=== PATIENT | female | born 1960 | race Caucasian/White ===

== ENCOUNTER 2023-04-15 09:44 | Inpatient (IN) | payer BC, SELFPAY ==
[2023-04-15] VITALS (8 sets, daily range): BP systolic 106–127; BP diastolic 52–69; PULSE 66–82; RESP 16–18; TEMP 36.7–36.9; O2SAT 98–100; BMI 21.0; BMI 21.2
--- NOTE | 2023-04-15 10:28 | PC.NURSE ---
Pt states she was cleaning litter box yesterday at 1600, her 8yo cat came and wrapped paws around her ankle and bit her ankle/achilles tendon area. Pt states cat is up to date with vaccinations. Left ankle has scratch hernandez on front of ankle, four puncture hernandez where cat bit (lower and upper teeth). Area painful, red, warm and swollen. Pt states she cannot bear weight and cannot move ankle without pain.
--- NOTE | 2023-04-15 10:49 | ED.GENADULT ---
HPI - General Adult General Time Seen by Provider: 10:49 Date Seen: 04/15/23 Chief complaint: Skin/Abscess/Foreign Body Stated complaint: Cat bite L ankle Time Seen by Provider: 04/15/23 10:49 Source: patient and RN notes reviewed Mode of arrival: ambulatory (With crutches) Limitations: no limitations History of Present Illness HPI narrative: Patient is coming in with a painful wound on the back of her left ankle. She was changing her cats martha litter last night. The cat attacked the back of her leg, scratching the front side with the claws in biting into the back of the calf. Patient is worried about her Achilles tendon. She states she has had pain all night long. No fever. She did try some ibuprofen. She did apply some ice to the back of the leg. She is sure her tetanus is up-to-date, just had a recent physical and everything was up-to-date. The cat is an indoor cat, is up-to-date on all immunizations. She does have a penicillin allergy, citing hives. Related Data Home Medications Medication Instructions Recorded Confirmed No Known Home Medications 04/15/23 04/15/23 Allergies Allergy/AdvReac Type Severity Reaction Status Date / Time amoxicillin Allergy Verified 04/15/23 09:55 Review of Systems Narrative: As per HPI [facility] Medical History (Updated 04/15/23 @ 15:06 by Aida Conway MD) Normal vaginal delivery ?O80 - Encounter for full-term uncomplicated delivery (ICD-10) Surgical History (Updated 04/15/23 @ 15:01 by Aida Conway MD) History of knee surgery ?Z98.890 - Other specified postprocedural states (ICD-10) Social History (Updated 04/15/23 @ 15:02 by Aida Conway MD) Narrative: , two grown daughters. nonsmoker. social wine. 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. gets primary care with [facility]. What is your current living situation?: I presently have a place to live Problems where you live: no known problems Problems where you live details: none In the past 12 months, utilities in danger of being shut off: no In the past 12 mos, have been you worried that your food would run out before you had money to buy more?: never true In the past 12 mos, the food you bought just didn't last and you didn't have money to buy more?: never true Highest level of school completed/degree received: Associate degree: academic program Smoking Status: Never smoker Do you use any of these nicotine containing products: None Second hand tobacco smoke exposure: No How often do you have a drink containing alcohol: 2-4 times a month How many standard drinks containing alcohol do you have on a typical day: 1 or 2 How often do you have six or more drinks on one occasion: Never AUDIT-C Alcohol total score: 2 Non-prescribed substance use: denies use Caffeine: Yes How often does anyone, including family, friends and others, physically hurt you: never How often does anyone, including family, friends and others, insult or talk down to you: never How often does anyone, including family, friends and others, threaten you with harm: never How often does anyone, including family, friends and others, scream or curse at you: never Gender Identity: female service: No Exam Const: Vital Signs, click to edit/add: Vital Signs - 24 hr 04/15/23 09:56 04/15/23 12:50 Temperature 98.5 F 98.0 F Pulse Rate [Pulse Oximeter] 82 70 Respiratory Rate 18 16 Blood Pressure [Le ft Upper Arm] 124/63 106/56 L Pulse Oximetry 100 99 Oxygen Delivery Me thod Room Air Room Air Documenting provider has reviewed patient's vital signs: yes Common normals: no apparent distress, average body habitus, oriented x3, no limitations, healthy appearing, alert and well nourished General appearance: cooperative, comfortable, well kempt and well developed Nutritional appearance: thin HENMT: Common normals: normocephalic, head/scalp atraumatic, hearing grossly normal bilaterally and external nose normal Head and scalp: normocephalic and atraumatic Face and sinus: normal facial exam Nose: external nose normal Eye: Common normals: PERRL, EOMs intact bilaterally, conjunctivae normal and no scleral icterus Conjunctiva: conjunctiva(e) normal Pupil: PERRL Neck & C-Spine: Common normals: full ROM, no lymphadenopathy and supple Resp: Common normals: normal respiratory effort, no retractions, no use of accessory muscles and clear to auscultation bilaterally Auscultation: clear to auscultation bilaterally Cardio: Common normals: regular rate, regular rhythm, S1 normal heart sound, S2 normal heart sound, no gallops, no clicks and no murmurs Rate: regular rate Rhythm: regular rhythm Heart sounds: S1 normal and S2 normal GI: Common normals: Normal to inspection, nondistended, normoactive bowel sounds present, soft to palpation, non-tender, no hepatosplenomegaly and no masses Palpation: soft and no hepatosplenomegaly Extremity: Other: Has superficial scratch on the anterior ankle area without erythema. Her Achilles tendon palpates intact but at the distal aspect of the insertion to the tendon to the muscle is where the soft tissue swelling and erythema of the skin start an there is a swath on the posterior aspect of this calf that goes a little proximally up the calf. There is erythema, tenderness and swelling and as well as induration. I feel no fluctuance. She is definitely tender in this area. This looks to be a significant cellulitis already. No drainage noted. Neuro: Common normals: oriented x3, moves all extremities, no focal motor deficits and no sensory deficits noted Sensorium/orientation: alert Psych: Appearance: well kempt Course Course Hospital Course: Reviewed with patient that her Achilles tendon seems to be intact and not involved but just proximal to this there is superficial cellulitis, I do not appreciate any concern for abscess at this time. This does however concern me for significant cellulitis already. I would favor hospitalization and IV antibiotics. Will need to go on up-to-date to review recommendations given her penicillin allergy. We will establish an IV, get appropriate labs. If this is worsening, she will likely need some type of imaging of this cat bite. Will talk to the hospitalist about hospitalization. Reevaluation(s) Time of Reevaluation #1: 11:06 Reevaluation #1: Reviewed with patient that I had been on up-to-date and reviewed antibiotic recommendations. Given her penicillin allergy, next in line would be Rocephin with either Flagyl or clindamycin. I would favor Rocephin with Flagyl. She believes she is taking Keflex before remotely for UTI and tolerated it. Time of Reevaluation #2: 12:54 Reevaluation #2: Patient is getting ready to be transferred to the floor. She had not wanted anything for pain management up to this point but at this time pain is severe enough she would consider. Nursing staff asked me for ibuprofen, recommended we try some IV Toradol. They were quite happy to try that route. I have ordered 15 mg IV Toradol. Consultations Consultation #1: Spoke with the hospitalist Dr. Conway. Reviewed the case. She does accept patient. Time: 11:54 Vital Signs Vital signs: Initial Vital Signs Temperature 98.5 F 04/15/23 09:56 Temperature Source Temporal Artery Scan 04/15/23 09:56 Pulse Rate 82 04/15/23 09:56 Pulse Rhythm Regular 04/15/23 09:56 Respiratory Rate 18 04/15/23 09:56 Blood Pressure 124/63 04/15/23 09:56 Blood Pressure Mean 83 04/15/23 09:56 Blood Pressure Position Sitting 04/15/23 09:56 Pulse Oximetry 100 04/15/23 09:56 Oxygen Delivery Method Room Air 04/15/23 09:56 Vital Signs Temperature 98.5 F 04/15/23 09:56 Pulse Rate 82 04/15/23 09:56 Respiratory Rate 18 04/15/23 09:56 Blood Pressure 124/63 04/15/23 09:56 Pulse Oximetry 100 04/15/23 09:56 Oxygen Delivery Method Room Air 04/15/23 09:56 Temperature 98.2 F 04/15/23 19:28 Pulse Rate 70 04/15/23 19:10 Respiratory Rate 16 04/15/23 19:10 Blood Pressure 127/69 04/15/23 19:10 Pulse Oximetry 98 04/15/23 19:10 Oxygen Delivery Method Room Air 04/15/23 19:10 Medical Decision Making Lab Data Lab results reviewed: Yes I reviewed the patient's lab results Labs: Lab Results 04/15/23 04/15/23 Range/Units 10:59 11:07 WBC 8.68 (4.50-11.00) K/uL RBC 4.91 (4.00-5.20) m/uL Hgb 14.7 (12.0-16.0) gm/dL Hct 44.2 (33.0-51.0) % MCV 90 (80-100) fL MCH 30 (26-34) pg MCHC 33 (32-36) gm/dL RDW Coeff of Betty 12.0 (11.5-15.5) % Plt Count 211 (140-440) K/uL Neut % (Auto) 76.4 H (42.0-72.0) % Lymph % (Auto) 15.6 L (20-44) % [place] % (Auto) 7.4 (0.0-11.0) % Eos % (Auto) 0.3 (0.0-7.0) % Baso % (Auto) 0.2 (0.0-3.0) % Neut # (Auto) 6.60 (1.7-7.0) K/uL Lymph # (Auto) 1.40 (0.90-2.90) K/uL [place] # (Auto) 0.60 (0.00-0.90) K/UL Eos # (Auto) 0.03 (0.00-0.50) K/uL Baso # (Auto) 0.02 (0.00-0.30) K/uL Abs Immat Gran (auto) 0.01 (0.00-0.30) K/uL Imm/Tot Granulo (auto) 0.1 % ESR 13 (2-20) mm/hr Sodium 139 (135-149) mmol/L Potassium 3.5 L (3.6-5.1) mmol/L Chloride 104 (96-114) mmol/L Carbon Dioxide 28 (20-32) mmol/L BUN 13 (7-30) mg/dL Creatinine 0.7 (0.5-1.5) mg/dL Estimated Creat Clear 79.80 Estimated GFR 99 ml/min Glucose 103 (60-115) mg/dL Lactate 0.9 (0.5-1.9) mmol/L Calcium 9.3 (8.4-10.6) mg/dL C-Reactive Protein 0.8 (0.5-1.0) mg/dL Critical Care Time Critical Care Time Critical Care Time: No Discharge Plan Discharge Clinical Impression: Cellulitis of left leg, Cat bite Patient Disposition: Admitted As Observation
[2023-04-15] MEDS: cefTRIAXone 1 GM in 0.9 % SODIUM CHLORIDE Mini-bag 100 ML IVPB ×2 (11:00→22:54)
[2023-04-15 11:30] LABS: Lactate* 0.9 mmol/L (0.5-1.9)
[2023-04-15 11:32] LABS: Basophils Absolute Auto 0.02 K/uL (0.00-0.30); Basophils Percent Auto 0.2 % (0.0-3.0); Eosinophils Absolute Auto 0.03 K/uL (0.00-0.50); Eosinophils Percent Auto 0.3 % (0.0-7.0); Hematocrit 44.2 % (33.0-51.0); Hemoglobin* 14.7 gm/dL (12.0-16.0); Immature Granulocytes Abs Auto 0.01 K/uL (0.00-0.30); Immature Granulocytes Pct Auto 0.1 %; Lymphocytes Percent Auto 15.6 % (20-44); Mean Corpuscular HGB Conc 33 gm/dL (32-36); Mean Corpuscular Hemoglobin 30 pg (26-34); Mean Corpuscular Volume 90 fL (80-100); Monocytes Percent Auto 7.4 % (0.0-11.0); Neutrophils Percent Auto 76.4 % (42.0-72.0); Platelet Count* 211 K/uL (140-440); Red Blood Count 4.91 m/uL (4.00-5.20); White Blood Count* 8.68 K/uL (4.50-11.00)
[2023-04-15] MEDS: metroNIDAZOLE 500 MG/100 ML PIGGYBACK 100 MG IVPB ×2 (11:40→19:12)
[2023-04-15 11:50] LABS: Slide Review Reflex No
[2023-04-15 12:37] LABS: Chloride* 104 mmol/L (96-114); Potassium* 3.5 mmol/L (3.6-5.1); Sodium* 139 mmol/L (135-149)
[2023-04-15 12:39] LABS: Creatinine* 0.7 mg/dL (0.5-1.5); Estimated Glomerular Filt Rate 99 ml/min
[2023-04-15 12:40] LABS: Blood Urea Nitrogen* 13 mg/dL (7-30); Carbon Dioxide* 28 mmol/L (20-32)
[2023-04-15 12:41] LABS: Calcium* 9.3 mg/dL (8.4-10.6); Glucose* 103 mg/dL (60-115)
[2023-04-15 12:43] LABS: C Reactive Protein* 0.8 mg/dL (0.5-1.0)
--- NOTE | 2023-04-15 12:51 | PC.NURSE ---
report called to med surg. pt able to go to room 277
[2023-04-15] MEDS: KETOROLAC 15 MG/ML inj IVP (12:58)
[2023-04-15 14:37] LABS: Erythrocyte SedimentationRate* 13 mm/hr (2-20)
--- NOTE | 2023-04-15 14:43 | PM.IMHP1 ---
Hospitalist- H&P: HPI History of Present Illness Date Seen: 04/15/23 Chief complaint: Cat bite L ankle Narrative: ADMISSION HISTORY AND PHYSICAL - HOSPITALIST Chief Complaint: Cat bite, left ankle HPI: 62-year-old healthy female presents approximately 17 hours after being bit by her house CT. Her CT expectedly launced at her posterior left ankle just above her Achilles tendon. She said it scratched and bit her. The cat is an inside cat and is fully vaccinated. This behavior from this feline has happened before to another member of the family. Her pain has been intense and the redness is sitting in at about the 12 hour point. She came to the ER for further evaluation. Chills without fever. She is not immunocompromised. She takes no routine medications. ER COURSE: labs, first course of antibiotics. no blood cultures; no imaging. Hospital medicine team was asked to evaluate given the source of the bite and the increasing pain and redness. CODE STATUS: FULL EMERGENCY CONTACT PLAN: I've updated the PFSH, medications and allergies in the [facility]panse tabs. INVESTIGATIONS: LABS/MICRO/ECG/IMAGING CBC reflects normal white blood cell count. Normal hemoglobin. Normal platelet count. ESR 13 CRP 0.8 Mildly depressed potassium at 3.5 otherwise all others are electrolytes, lactate, renal function are all normal REVIEW OF SYSTEMS: 12-point ROS completed with patient and negative unless otherwise stated in HPI or below. PHYSICAL EXAM: CONSTITUTIONAL: Conversive, good historian. A/O. Knows setting and context. VITAL SIGNS: see record. HEENT: Normocephalic, atraumatic. PERRL, EOMI, conjunctivae pink, no scleral icterus. Ears and nose externally normal. Pharynx normal. NECK: No JVD. No carotid bruit, no thyromegaly, no adenopathy. CHEST: Clear to auscultation bilaterally HEART: S1 and S2 normal. No harsh murmurs. Edema MUSCULOSKELETAL: No gross joint deformity or swelling. NEURO: Cranial nerves intact. Grossly intact. No asymmetric findings. SKIN: No rashes, petechiae, concerning changes Left ankle/calf: Achilles tendon palpates intact. Positive Homans sign. Redness is outlined about the size of a softball around puncture wounds. No fluid collections or obvious fluctuance. PSYCHIATRIC: Euthymic. ADMIT TO MEDSURG: FLOOR CARE DVT: Lovenox GI: PO intake Time spent: 70 minutes examining patient, conferring with family and patient, care staff, developing care plan [facility] Medical History (Updated 04/15/23 @ 15:06 by Aida Conway MD) Normal vaginal delivery ?O80 - Encounter for full-term uncomplicated delivery (ICD-10) Surgical History (Updated 04/15/23 @ 15:01 by Aida Conway MD) History of knee surgery ?Z98.890 - Other specified postprocedural states (ICD-10) Social History (Updated 04/15/23 @ 15:02 by Aida Conway MD) Narrative: , two grown daughters. nonsmoker. social wine. 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 gets primary care with [facility]. What is your current living situation?: I presently have a place to live Problems where you live: no known problems Problems where you live details: none In the past 12 months, utilities in danger of being shut off: no In the past 12 mos, have been you worried that your food would run out before you had money to buy more?: never true In the past 12 mos, the food you bought just didn't last and you didn't have money to buy more?: never true Highest level of school completed/degree received: Associate degree: academic program Smoking Status: Never smoker Do you use any of these nicotine containing products: None Second hand tobacco smoke exposure: No How often do you have a drink containing alcohol: 2-4 times a month How many standard drinks containing alcohol do you have on a typical day: 1 or 2 How often do you have six or more drinks on one occasion: Never AUDIT-C Alcohol total score: 2 Non-prescribed substance use: denies use Caffeine: Yes How often does anyone, including family, friends and others, physically hurt you: never How often does anyone, including family, friends and others, insult or talk down to you: never How often does anyone, including family, friends and others, threaten you with harm: never How often does anyone, including family, friends and others, scream or curse at you: never Gender Identity: female service: No Meds Home Medications and Allergies Home Medications Medication Instructions Recorded Confirmed Type No Known Home Medications 04/15/23 04/15/23 History Allergies Allergy/AdvReac Type Severity Reaction Status Date / Time amoxicillin Allergy Verified 04/15/23 09:55 Exam Const: Vital Signs, click to edit/add: Vital Signs - 24 hr 04/15/23 09:56 04/15/23 12:50 04/15/23 13:12 Temperature 98.5 F 98.0 F 98.0 F Pulse Rate [Pulse Oximeter] 82 70 Pulse Rate [Right Pulse Oximeter] Respiratory Rate 18 16 16 Blood Pressure [Le ft Arm] 111/52 L Blood Pressure [Le ft Upper Arm] 124/63 106/56 L Pulse Oximetry 100 99 100 Oxygen Delivery Me thod Room Air Room Air Room Air 04/15/23 13:12 04/15/23 13:22 04/15/23 13:22 Temperature 98.0 F Pulse Rate [Pulse Oximeter] Pulse Rate [Right Pulse Oximeter] 79 Respiratory Rate 16 16 16 Blood Pressure [Le ft Arm] 111/52 L Blood Pressure [Le ft Upper Arm] Pulse Oximetry 100 100 100 Oxygen Delivery Me thod Room Air Room Air Room Air Hospitalist - H&P: Result Labs Labs: Short CBC 04/15/23 Range/Units 10:59 WBC 8.68 (4.50-11.00) K/uL Hgb 14.7 (12.0-16.0) gm/dL Hct 44.2 (33.0-51.0) % Plt Count 211 (140-440) K/uL BMP 04/15/23 11:07 Sodium 139 Potassium 3.5 L Chloride 104 Carbon Dioxide 28 BUN 13 Creatinine 0.7 Glucose 103 Calcium 9.3 Assessment and Plan Assessment and plan (1) Cellulitis of left leg: Problem comment: In light of penicillin allergy we will administer ceftriaxone 1 g q.12 and Flagyl 500 mg q.8 We can switch to an oral regimen once we have peaked evidence of infection Ultrasound to the left lower extremity ordered 04/15 Status: Acute (2) Cat bite: Problem comment: No need to quarantine Status: Acute
--- NOTE | 2023-04-15 14:50 | CRLHL7_ITS ---
For Patients: As a result of the Century Cures Act, medical imaging exams and procedure reports are released immediately into your electronic medical record. You may view this report before your referring provider. If you have questions, please contact your health care provider. INDICATION: TECHNIQUE: Ultrasound venous duplex left lower extremity. COMPARISON: None. FINDINGS: The left common femoral, superficial femoral, deep femoral, popliteal, posterior tibial, and greater saphenous veins are fully compressible normal waveforms. The contralateral right common femoral vein is also compressible with normal waveform. No masses evident. IMPRESSION: Normal ultrasound of the left lower extremity veins. Dictated by: Osmani Rider MD @ 04/15/2023 16:40:17 (Electronically Signed)
[2023-04-15] MEDS: ACETAMINOPHEN 325 MG TABLET PO (15:00)
[2023-04-15] MEDS: KETOROLAC 30 MG/ML inj IVP (18:46)
--- NOTE | 2023-04-15 19:06 | PC.NURSE ---
Pt up to floor at 1300 accompanied by dtr. Patient is alert and oriented x4. Tolerating reg diet. Patients IV in right arm SL. Patient rates pain 6/10. PRN tylenol adminitered w/relief. Scheduled Toradol administered. Patients cat bite on left ankle, red, warm to the touch and staying within the line drawn by MD Conway. Patient on RA, NSR on tele. Ambulates independently to BR. Tolerating well.
[2023-04-15] MEDS: ENOXAPARIN 40 MG/0.4 ML INJ SUBCUT (20:39)
[2023-04-15] MEDS: SODIUM CHLORIDE 0.9 % (FLUSH) 10 ML SYRINGE 5 ML IVF ×2 (20:40→22:58)
--- NOTE | 2023-04-15 22:46 | PC.NURSE ---
End of shift nursing note, care provided from : Pt alert and oriented, pleasant. Vitals stable. Pt rates pain to L ankle 5/10 which she states is manageable and slightly improving, declines offer for additional PRN, pt states understanding to notify nursing staff if pain increases. Pt up ind in room, voiding without difficulty. Denies nausea, tolerating oral intake. IV saline locked in between IV antibiotics admin. CMS intact. Pt has call light within reach and able to use appropriately.
[2023-04-16] MEDS: KETOROLAC 30 MG/ML inj IVP ×2 (00:51→06:30)
[2023-04-16 03:33] VITALS: BP 102/64; PULSE 64; RESP 16; TEMP 36.5; O2SAT 96
[2023-04-16] MEDS: metroNIDAZOLE 500 MG/100 ML PIGGYBACK 100 MG IVPB ×3 (03:39→19:38)
[2023-04-16 06:31] LABS: HCO3 VBG 29 mmol/L (21-28); PCO2 VBG 49 mmHG (40-50); PO2 VBG 35.5 mmHG (25-47); pH VBG 7.378 (7.32-7.43)
--- NOTE | 2023-04-16 06:39 | PC.NURSE ---
End of shift: Pt A&O, pleasant and cooperative. VSS w/ sats >90% on RA. Rating left ankle pain 5/10. Pt declined PRN pain medication. Scheduled Toradol given. Up at susu.
[2023-04-16 06:44] LABS: Hematocrit 37.3 % (33.0-51.0); Hemoglobin* 12.8 gm/dL (12.0-16.0); Mean Corpuscular HGB Conc 34 gm/dL (32-36); Mean Corpuscular Hemoglobin 31 pg (26-34); Mean Corpuscular Volume 90 fL (80-100); Platelet Count* 195 K/uL (140-440); Red Blood Count 4.13 m/uL (4.00-5.20); White Blood Count* 5.81 K/uL (4.50-11.00)
[2023-04-16 06:54] LABS: Slide Review Reflex No
[2023-04-16 07:00] VITALS: BP 117/70; PULSE 75; PULSE 77; RESP 16; TEMP 36.8; O2SAT 99
[2023-04-16 07:02] LABS: Chloride* 106 mmol/L (96-114); Sodium* 138 mmol/L (135-149)
[2023-04-16 07:05] LABS: Creatinine* 0.7 mg/dL (0.5-1.5); Est. Creatinine Clearance* 79.86; Estimated Glomerular Filt Rate 99 ml/min
[2023-04-16 07:06] LABS: Blood Urea Nitrogen* 16 mg/dL (7-30); Calcium* 8.3 mg/dL (8.4-10.6); Carbon Dioxide* 30 mmol/L (20-32); Glucose* 105 mg/dL (60-115); Magnesium* 2.1 mg/dL (1.5-2.6)
[2023-04-16 07:09] LABS: C Reactive Protein* 2.2 mg/dL (0.5-1.0)
[2023-04-16 07:15] LABS: NT Pro B Type NatriureticPept* 174 pg/mL
[2023-04-16 07:21] LABS: Procalcitonin* 0.07 ng/mL (<0.50)
[2023-04-16 11:00] VITALS: RESP 18
[2023-04-16] MEDS: cefTRIAXone 1 GM in 0.9 % SODIUM CHLORIDE Mini-bag 100 ML IVPB ×2 (11:15→22:31)
[2023-04-16] MEDS: CARBOXYMETHYLCELLULOSE (REFRESH PLUS) TEARS 1 DROP EYE-BOTH (11:15)
[2023-04-16] MEDS: SODIUM CHLORIDE 0.9 % (FLUSH) 10 ML SYRINGE 5 ML IVF ×2 (11:21→20:41)
[2023-04-16] MEDS: LACTOBACILLUS ACIDOPHILUS 1 TABLET 2 TAB PO ×2 (11:59→17:53)
--- NOTE | 2023-04-16 12:09 | P.IMPN_ITS ---
Progress Note: A&P Assessment and plan (1) Cellulitis of left leg: Problem details: In light of penicillin allergy we will administer ceftriaxone 1 g q.12 and Flagyl 500 mg q.8 We can switch to an oral regimen once we have peaked evidence of infection Ultrasound to the left lower extremity ordered 04/15 normal Will start a probiotic Likely DC tomorrow Status: Acute (2) Cat bite: Problem details: No need to quarantine Status: Acute Subjective Date Seen: 04/16/23 Interval history: Daily Progress Note - Hospital Medicine Day #: 2 CC: Cellulitis, cat bite OVERNIGHT UPDATES FROM STAFF & MED, LAB, IMAGING UPDATES No fever overnight. Rated 5/10 with walking and flexing at the ankle. Ultrasound was reassuring. Good appetite no chills CBC reassuring. Total white blood cell count 5.8. Normal blood gas, normal pH Electrolytes are all normal. Potassium has, up to 4.0 C reactive protein went from 0.8-2.2 BNP, pro count and TSH were all normal Normal ultrasound of the left lower extremity veins. Objective: Vitals: see above Lungs: Clear. Cardiac: S1S2. Left ankle slight extension of her erythema proximally. No fluid collection palpated. Warmth continues. Rash appears bit more petechial like. Tender to palpation. Disposition/Potential discharge - Likely to return to previous living situation. Total time is 35 minutes with greater than 50% spent in counseling and coordination of care. Exam Const: Vital Signs, click to edit/add: Vital Signs - 24 hr 04/15/23 12:50 04/15/23 13:12 04/15/23 13:12 Temperature 98.0 F 98.0 F Pulse Rate Pulse Rate [Pulse Oximeter] 70 Pulse Rate [Right Pulse Oximeter] Respiratory Rate 16 16 16 Blood Pressure [Le ft Arm] 111/52 L Blood Pressure [Le ft Upper Arm] 106/56 L Pulse Oximetry 99 100 100 Oxygen Delivery Me thod Room Air Room Air Room Air 04/15/23 13:22 04/15/23 13:22 04/15/23 13:22 Temperature 98.0 F Pulse Rate 73 Pulse Rate [Pulse Oximeter] Pulse Rate [Right Pulse Oximeter] 79 Respiratory Rate 16 16 Blood Pressure [Le ft Arm] 111/52 L Blood Pressure [Le ft Upper Arm] Pulse Oximetry 100 100 Oxygen Delivery Me thod Room Air Room Air 04/15/23 15:00 04/15/23 19:10 04/15/23 19:28 Temperature 98.2 F 98.2 F Pulse Rate Pulse Rate [Pulse Oximeter] Pulse Rate [Right Pulse Oximeter] 71 70 Respiratory Rate 16 16 Blood Pressure [Le ft Arm] 127/69 Blood Pressure [Le ft Upper Arm] Pulse Oximetry 98 [facility] 04/15/23 23:32 04/16/23 03:33 04/16/23 07:00 Temperature 98.1 F 97.7 F Pulse Rate 77 Pulse Rate [Pulse Oximeter] Pulse Rate [Right Pulse Oximeter] 66 64 Respiratory Rate 18 16 Blood Pressure [Le ft Arm] 120/67 102/64 Blood Pressure [Le ft Upper Arm] Pulse Oximetry 98 96 [facility] Room Air 04/16/23 07:00 04/16/23 07:00 Temperature 98.2 F Pulse Rate Pulse Rate [Pulse Oximeter] Pulse Rate [Right Pulse Oximeter] 75 75 Respiratory Rate 16 16 Blood Pressure [Le ft Arm] 117/70 Blood Pressure [Le ft Upper Arm] Pulse Oximetry 99 [facility] Labs Labs: Laboratory Results - last 24 hr 04/15/23 04/16/23 11:07 06:08 WBC 5.81 RBC 4.13 Hgb 12.8 Hct 37.3 MCV 90 MCH 31 MCHC 34 Plt Count 195 ESR 13 VBG pH 7.378 VBG pCO2 49 VBG pO2 35.5 VBG HCO3 29 H Sodium 139 138 Potassium 3.5 L 4.0 Chloride 104 106 Carbon Dioxide 28 30 BUN 13 16 Creatinine 0.7 0.7 Estimated Creat Clear 79.80 79.86 Estimated GFR 99 99 Glucose 103 105 Calcium 9.3 8.3 L Magnesium 2.1 C-Reactive Protein 0.8 2.2 H NT-Pro-B Natriuret Pep 174 Procalcitonin 0.07 TSH 1.560
--- NOTE | 2023-04-16 14:00 | CRLHL7_ITS ---
For Patients: As a result of the Century Cures Act, medical imaging exams and procedure reports are released immediately into your electronic medical record. You may view this report before your referring provider. If you have questions, please contact your health care provider. HISTORY: Cat bite. TECHNIQUE: Noncontrast MRI of the left lower leg. COMPARISON: Ultrasound 04/15/2023. FINDINGS: There is subcutaneous signal abnormality involving the posterior aspect of the lower leg suggesting cellulitis changes. There is interstitial muscle edema involving the soleus muscle which in the setting of a cat bite likely indicates myositis. A muscle strain could appear similarly. Small area of thickening of the musculotendinous unit is present. Fascial plane edema or a small amount of fascial plane fluid extends along the posterior aspect of the soleus and Achilles tendon. There is tendinosis of the distal Achilles tendon. No acute fracture. No confluent effacement of fatty marrow to suggest osteomyelitis. IMPRESSION: 1. Cellulitis of the posterior calf. 2. Fascial plane edema versus a small amount of fascial plane fluid along the posterior aspect of the soleus and Achilles tendon suggesting fasciitis. 3. Interstitial muscle signal abnormality involving the soleus muscle compatible with myositis. Note than an acute muscle strain could appear similarly. 4. No osteomyelitis. Dictated by David Pretty MD @ 04/17/2023 7:14:57 AM (Electronically Signed)
[2023-04-16 15:00] VITALS: BP 130/75; PULSE 78; RESP 18; TEMP 37.4; O2SAT 100
[2023-04-16 16:54] LABS: PCR FLU A Negative PCR FLU A (Negative); PCR FLU B Negative PCR FLU B (Negative); PCR RSV Negative PCR RSV (Negative)
[2023-04-16 16:56] LABS: SARS PCR* Negative SARS-CoV-2 (Negative)
[2023-04-16] MEDS: ACETAMINOPHEN 325 MG TABLET PO (17:52)
[2023-04-16] MEDS: OXYCODONE 5 MG TABLET PO (17:53)
[2023-04-16 19:29] VITALS: BP 120/67; PULSE 70; RESP 18; TEMP 36.8; O2SAT 96
--- NOTE | 2023-04-16 19:33 | PC.NURSE ---
End of shift note: Patient is alert and oriented x4. Tolerating reg diet. Patients IV in right arm SL. Patient states she is tolerating pain. Only hurts when walking to BR. Patients cat bite on left ankle, red, warm to the touch and staying within the line drawn by MD Conway. Patient on RA, Ambulates independently to BR. Tolerating well. Patient a little more anxious today, she feels warm and feverish. covid/flu/rsv test done, and negative.
[2023-04-16] MEDS: ENOXAPARIN 40 MG/0.4 ML INJ SUBCUT (20:40)
[2023-04-16] MEDS: MELATONIN 3 MG TABLET PO (20:54)
--- NOTE | 2023-04-16 22:39 | PC.NURSE ---
End of shift: Pt A&O, pleasant and cooperative. VSS w/ sats >90% on RA. Cat bite to left ankle red, swollen, and warm to touch. Site outlined. Pt states pain is ?tolerable?. Pt mentioned lack of sleep last night and today, PRN melatonin given. Up at susu.
[2023-04-16 23:00] VITALS: BP 117/76; PULSE 62; RESP 18; TEMP 36.6; O2SAT 96
[2023-04-17] VITALS (10 sets, daily range): BP systolic 110–129; BP diastolic 71–82; PULSE 76–84; RESP 18–20; TEMP 37.1–37.9; O2SAT 96–98
[2023-04-17] MEDS: metroNIDAZOLE 500 MG/100 ML PIGGYBACK 100 MG IVPB ×3 (03:24→20:01)
[2023-04-17 06:21] LABS: Hematocrit 36.4 % (33.0-51.0); Hemoglobin* 12.4 gm/dL (12.0-16.0); Mean Corpuscular HGB Conc 34 gm/dL (32-36); Mean Corpuscular Hemoglobin 31 pg (26-34); Mean Corpuscular Volume 89 fL (80-100); Platelet Count* 179 K/uL (140-440); Red Blood Count 4.07 m/uL (4.00-5.20); White Blood Count* 6.47 K/uL (4.50-11.00)
[2023-04-17 06:22] LABS: Slide Review Reflex No
[2023-04-17 06:31] LABS: Chloride* 106 mmol/L (96-114); Potassium* 3.5 mmol/L (3.6-5.1); Sodium* 137 mmol/L (135-149)
[2023-04-17 06:34] LABS: Blood Urea Nitrogen* 9 mg/dL (7-30); Carbon Dioxide* 28 mmol/L (20-32); Creatinine* 0.7 mg/dL (0.5-1.5); Est. Creatinine Clearance* 79.86; Estimated Glomerular Filt Rate 99 ml/min
[2023-04-17 06:35] LABS: Calcium* 8.4 mg/dL (8.4-10.6); Glucose* 103 mg/dL (60-115)
[2023-04-17 06:37] LABS: C Reactive Protein* 2.7 mg/dL (0.5-1.0)
--- NOTE | 2023-04-17 07:16 | PC.NURSE ---
-: pleasant and cooperative. SBA. Pt states pain in her left ankle is tolerable, and that it feels ?tight and swollen?,?declined need for Tylenol this AM. Cellulitis outlined on left ankle, new dotted line was made by Tomasa PETERSON at 2300 04/16/23 as the redness increased outside of original margins. LLE elevated on pillows. VSS. Afebrile.
[2023-04-17] MEDS: LACTOBACILLUS ACIDOPHILUS 1 TABLET 2 TAB PO ×3 (07:50→17:30)
[2023-04-17] MEDS: SODIUM CHLORIDE 0.9 % (FLUSH) 10 ML SYRINGE 5 ML IVF ×2 (07:50→21:07)
--- NOTE | 2023-04-17 12:10 | PC.SOCIAL ---
student services representative referral on pt. in error. No medical social worker needs identified.
--- NOTE | 2023-04-17 12:47 | PM.IMPN1 ---
Progress Note: A&P Assessment and plan (1) Cellulitis of left leg: Problem details: In light of penicillin allergy we ordered ceftriaxone 1 g q.12 and Flagyl 500 mg q.8 changing ceftriaxone to vancomycin and cefuroxime. continue flagyl 2/2 increasing proximal redness, pain and increasing CRP We can switch to an oral regimen once we have peaked evidence of infection MR reviewed with ortho probiotic ongoing Status: Acute (2) Cat bite: Problem details: No need to quarantine Status: Acute Subjective Date Seen: 04/17/23 Interval history: Daily Progress Note - Hospital Medicine Day #: 3 CC: Cellulitis, cat bite OVERNIGHT UPDATES FROM STAFF & MED, LAB, IMAGING UPDATES new elevated temp 100.1 this morning. Rated 5/10 with walking and flexing at the ankle. Ultrasound was reassuring. MR last night: 1. Cellulitis of the posterior calf. 2. Fascial plane edema versus a small amount of fascial plane fluid along the posterior aspect of the soleus and Achilles tendon suggesting fasciitis. 3. Interstitial muscle signal abnormality involving the soleus muscle compatible with myositis. Note than an acute muscle strain could appear similarly. 4. No osteomyelitis Good appetite no chills Temp is 100.1? this morning. This is the 1st documented temp over 100. CBC is normal Potassium is mildly depressed. CRP is up trending to 2.7 from 2.2 and 0.8 Objective: well appearing Vitals: see above Lungs: Clear. Cardiac: S1S2. Left ankle slight extension of her erythema proximally. No fluid collection palpated. Warmth continues. Rash appears bit more petechial like. Tender to palpation. Disposition/Potential discharge - Likely to return to previous living situation. Total time is 35 minutes with greater than 50% spent in counseling and coordination of care. Exam Const: Vital Signs, click to edit/add: Vital Signs - 24 hr 04/16/23 15:00 04/16/23 15:00 04/16/23 19:29 Temperature 99.4 F 98.2 F Pulse Rate [Right Pulse Oximeter] 78 78 70 Respiratory Rate 18 18 18 Blood Pressure [Le ft Arm] 130/75 120/67 Pulse Oximetry 100 96 Oxygen Delivery Me thod Room Air Room Air 04/16/23 23:00 04/16/23 23:00 04/17/23 03:00 Temperature 98 F 98.7 F Pulse Rate [Right Pulse Oximeter] 62 62 76 Respiratory Rate 18 18 18 Blood Pressure [Le ft Arm] 117/76 110/75 Pulse Oximetry 96 97 Oxygen Delivery Me thod Room Air Room Air 04/17/23 07:37 04/17/23 11:34 Temperature 99.2 F 100.1 F H Pulse Rate [Right Pulse Oximeter] 78 78 Respiratory Rate 18 20 Blood Pressure [Le ft Arm] 129/74 128/82 Pulse Oximetry 96 98 Oxygen Delivery Fl thod Room Air Room Air Labs Labs: Laboratory Results - last 24 hr 04/16/23 04/17/23 14:10 05:59 WBC 6.47 RBC 4.07 Hgb 12.4 Hct 36.4 MCV 89 MCH 31 MCHC 34 Plt Count 179 Sodium 137 Potassium 3.5 L Chloride 106 Carbon Dioxide 28 BUN 9 Creatinine 0.7 Estimated Creat Clear 79.86 Estimated GFR 99 Glucose 103 Calcium 8.4 C-Reactive Protein 2.7 H SARS-CoV-2 (PCR) Negative SARS-CoV-2 Influenza Type A (PCR) Negative PCR FLU A Influenza Type B (PCR) Negative PCR FLU B RSV (PCR) Negative PCR RSV
[2023-04-17 13:23] LABS: Procalcitonin* 0.07 ng/mL (<0.50)
[2023-04-17] MEDS: ACETAMINOPHEN 325 MG TABLET PO (15:05)
[2023-04-17] MEDS: ONDANSETRON ODT 4 MG TAB PO (15:05)
--- NOTE | 2023-04-17 17:39 | PC.NURSE ---
Pt alert and oriented. Pt independent in room. Pt had complaints of pain ranging from 0-7; Pt refused pain medications most of shift. Pt agreeable to taking Tylenol in late afternoon after discussion and Hospitalist recommendation.?Redness spread outside of lines from 2300 04/16; new lines drawn- redness did not exceed this area during shift. Pt is elevating leg, applying ice and doing exercises to help with tight/stiffness in leg. Pt had temperature ranging from 99.2-100.3 during shift Hospitalists notified. ?
--- NOTE | 2023-04-17 18:21 | PC.NURSE ---
Pt had complaints of chills starting mid afternoon; reported to hospitalist.
[2023-04-17] MEDS: ENOXAPARIN 40 MG/0.4 ML INJ SUBCUT (21:07)
[2023-04-18 03:35] VITALS: BP 106/68; PULSE 77; RESP 16; TEMP 37; O2SAT 96
[2023-04-18] MEDS: SODIUM CHLORIDE 0.9 % (FLUSH) 10 ML SYRINGE 5 ML IVF ×4 (03:43→19:14)
[2023-04-18] MEDS: metroNIDAZOLE 500 MG/100 ML PIGGYBACK 100 MG IVPB ×3 (03:43→19:14)
--- NOTE | 2023-04-18 06:39 | PC.NURSE ---
END OF SHIFT NOTE: PT PLEASANT AND COOPERATIVE. A&OX4. DENIES CP, SOB, N/V. AMBULATES INDEPENDENTLY WITH LIMP TO LEFT LEG. VSS ON RA; MAX TEMP 99.3F. CALL LIGHT WITHIN PT?S REACH. REDNESS REMAINS WITHIN OUTLINED PARAMETERS. PT RATES LLE PAIN 7/10 WITH ACTIVITY. LLE HAS BEEN ELEVATED ON PILLOW AND ICED NOC. UNEVENTFUL NIGHT. ?
[2023-04-18 07:00] VITALS: BP 118/68; RESP 16; TEMP 36.6
[2023-04-18 07:33] LABS: HCO3 VBG 28 mmol/L (21-28); PCO2 VBG 44 mmHG (40-50); PO2 VBG 38.3 mmHG (25-47); pH VBG 7.408 (7.32-7.43)
[2023-04-18 07:43] LABS: Hematocrit 35.7 % (33.0-51.0); Hemoglobin* 12.2 gm/dL (12.0-16.0); Mean Corpuscular HGB Conc 34 gm/dL (32-36); Mean Corpuscular Hemoglobin 31 pg (26-34); Mean Corpuscular Volume 90 fL (80-100); Platelet Count* 195 K/uL (140-440); Red Blood Count 3.97 m/uL (4.00-5.20); White Blood Count* 5.58 K/uL (4.50-11.00)
[2023-04-18 07:52] LABS: Slide Review Reflex No
[2023-04-18 07:59] LABS: Chloride* 106 mmol/L (96-114); Sodium* 137 mmol/L (135-149)
[2023-04-18 08:00] LABS: Potassium* 3.6 mmol/L (3.6-5.1)
[2023-04-18 08:02] LABS: Creatinine* 0.7 mg/dL (0.5-1.5); Est. Creatinine Clearance* 80.01; Estimated Glomerular Filt Rate 99 ml/min
[2023-04-18 08:03] LABS: Blood Urea Nitrogen* 10 mg/dL (7-30); Calcium* 8.4 mg/dL (8.4-10.6); Carbon Dioxide* 30 mmol/L (20-32); Glucose* 101 mg/dL (60-115)
[2023-04-18 08:06] LABS: C Reactive Protein* 2.4 mg/dL (0.5-1.0)
[2023-04-18 08:18] LABS: Procalcitonin* 0.08 ng/mL (<0.50)
[2023-04-18] MEDS: LACTOBACILLUS ACIDOPHILUS 1 TABLET 2 TAB PO ×3 (08:54→17:37)
--- NOTE | 2023-04-18 10:59 | P.IMPN_ITS ---
Progress Note: A&P Assessment and plan (1) Cellulitis of left leg: Problem details: In light of penicillin allergy we ordered ceftriaxone 1 g q.12 and Flagyl 500 mg q.8 changing ceftriaxone to vancomycin (ultimately we only covered her with one dose) and oral cefuroxime. continue flagyl 2/2 increasing proximal redness, pain and increasing CRP We can switch to a complete oral regimen once we have peaked evidence of infection MR reviewed with ortho probiotic ongoing Status: Acute (2) Cat bite: Problem details: No need to quarantine Status: Acute Subjective Date Seen: 04/18/23 Interval history: Daily Progress Note - Hospital Medicine Day #: 4 CC: Cellulitis, cat bite OVERNIGHT UPDATES FROM STAFF & MED, LAB, IMAGING UPDATES temps yesterday up to 100.3. still c/o of pain with flexion and walking. one dose vanc yesterday, started cefuroxime instead of ceftriaxone. MR last 04/16 1. Cellulitis of the posterior calf. 2. Fascial plane edema versus a small amount of fascial plane fluid along the posterior aspect of the soleus and Achilles tendon suggesting fasciitis. 3. Interstitial muscle signal abnormality involving the soleus muscle compatible with myositis. Note than an acute muscle strain could appear similarly. 4. No osteomyelitis Good appetite no chills CBC is normal CRP is down trending to 2.4 from 2.7 from 2.2 and 0.8 Objective: well appearing Vitals: see above Lungs: Clear. Cardiac: S1S2. No further extension of erythema. some increased swelling around her ankle. No fluid collection palpated. Warmth continues. Rash appears bit more petechial like. Tender to palpation. Disposition/Potential discharge - Likely to return to previous living situation. Total time is 35 minutes with greater than 50% spent in counseling and coordination of care. Exam Const: Vital Signs, click to edit/add: Vital Signs - 24 hr 04/17/23 11:34 04/17/23 15:00 04/17/23 15:00 Temperature 100.1 F H 100.3 F H Pulse Rate [Right Pulse Oximeter] 78 84 84 Respiratory Rate 20 20 Blood Pressure [Le ft Arm] 128/82 125/75 Pulse Oximetry 98 96 Oxygen Delivery Me thod Room Air Room Air 04/17/23 15:05 04/17/23 17:30 04/17/23 17:31 Temperature 100.3 F H 99.5 F 99.5 F Pulse Rate [Right Pulse Oximeter] Respiratory Rate Blood Pressure [Le ft Arm] Pulse Oximetry Oxygen Delivery Me thod 04/17/23 19:00 04/17/23 22:55 04/17/23 23:00 Temperature 99.2 F 99.3 F Pulse Rate [Right Pulse Oximeter] 76 76 83 Respiratory Rate 20 20 18 Blood Pressure [Le ft Arm] 112/71 128/80 Pulse Oximetry 97 97 Oxygen Delivery Nh thod Room Air Room Air 04/18/23 03:35 04/18/23 07:00 04/18/23 07:00 Temperature 98.6 F 97.9 F Pulse Rate [Right Pulse Oximeter] 77 Respiratory Rate 16 16 Blood Pressure [Le ft Arm] 106/68 118/68 Pulse Oximetry 96 [facility] Labs: Laboratory Results - last 24 hr 04/17/23 04/18/23 05:59 07:22 WBC 5.58 RBC 3.97 L Hgb 12.2 Hct 35.7 MCV 90 MCH 31 MCHC 34 Plt Count 195 VBG pH 7.408 VBG pCO2 44 VBG pO2 38.3 VBG HCO3 28 Sodium 137 Potassium 3.6 Chloride 106 Carbon Dioxide 30 BUN 10 Creatinine 0.7 Estimated Creat Clear 80.01 Estimated GFR 99 Glucose 101 Calcium 8.4 C-Reactive Protein 2.4 H Procalcitonin 0.07 0.08 Lab Acknowledgement Test Added
[2023-04-18 15:15] VITALS: BP 123/80; PULSE 70; RESP 16; TEMP 37.1; O2SAT 97
[2023-04-18 19:00] VITALS: BP 126/81; PULSE 77; RESP 16; TEMP 36.9; O2SAT 97
[2023-04-18] MEDS: ENOXAPARIN 40 MG/0.4 ML INJ SUBCUT (20:31)
--- NOTE | 2023-04-18 21:36 | PC.NURSE ---
Pt alert and oriented. Pt independent in room. Pt had complaints of pain ranging from 5-7; Pt refused pain medications. Pt?s redness on leg did not exceed outlined areas during shift. Pt is elevating leg, applying ice and doing exercises to help with tight/stiffness in leg. Pt afebrile and VSS. Pt took a shower during shift.?
--- NOTE | 2023-04-18 23:34 | PC.NURSE ---
Redness of leg did not increase out of premarked lines during shift
[2023-04-19 00:15] VITALS: BP 106/71; PULSE 87; RESP 16; TEMP 37.2; O2SAT 96
[2023-04-19 03:40] VITALS: BP 116/69; PULSE 74; RESP 16; TEMP 36.8; O2SAT 96
[2023-04-19] MEDS: metroNIDAZOLE 500 MG/100 ML PIGGYBACK 100 MG IVPB ×2 (03:42→11:15)
[2023-04-19] MEDS: SODIUM CHLORIDE 0.9 % (FLUSH) 10 ML SYRINGE 5 ML IVF ×2 (03:43→09:07)
--- NOTE | 2023-04-19 06:02 | PC.NURSE ---
END OF SHIFT NOTE: PT PLEASANT AND COOPERATIVE. ANXIOUS AT TIMES. DENIES CP, SOB, N/V. AMBULATES INDEPENDENT IN ROOM. MOVES WITH LEFT LIMB. CELLULITIS REDNESS REMAINS WITHIN MARKED OUTLINE. VSS ON RA; AFEBRILE. CALL LIGHT WITHIN PT?S REACH.?
[2023-04-19 06:46] LABS: Hematocrit 38.5 % (33.0-51.0); Hemoglobin* 13.1 gm/dL (12.0-16.0); Mean Corpuscular HGB Conc 34 gm/dL (32-36); Mean Corpuscular Hemoglobin 31 pg (26-34); Mean Corpuscular Volume 90 fL (80-100); Platelet Count* 217 K/uL (140-440); White Blood Count* 4.32 K/uL (4.50-11.00)
[2023-04-19 06:48] LABS: Slide Review Reflex No
[2023-04-19 06:55] LABS: Chloride* 104 mmol/L (96-114); Potassium* 3.5 mmol/L (3.6-5.1); Sodium* 137 mmol/L (135-149)
[2023-04-19 06:58] LABS: Creatinine* 0.7 mg/dL (0.5-1.5); Est. Creatinine Clearance* 79.29; Estimated Glomerular Filt Rate 99 ml/min
[2023-04-19 06:59] LABS: Blood Urea Nitrogen* 13 mg/dL (7-30); Calcium* 8.8 mg/dL (8.4-10.6); Carbon Dioxide* 27 mmol/L (20-32); Glucose* 93 mg/dL (60-115)
[2023-04-19 07:01] LABS: C Reactive Protein* 1.6 mg/dL (0.5-1.0)
[2023-04-19 07:40] VITALS: BP 117/71; PULSE 77; RESP 18; TEMP 36.7; O2SAT 97
[2023-04-19 07:49] VITALS: PULSE 77; RESP 18
[2023-04-19] MEDS: LACTOBACILLUS ACIDOPHILUS 1 TABLET 2 TAB PO (09:07)
[2023-04-19 11:06] VITALS: PULSE 77; RESP 18; TEMP 36.7
--- NOTE | 2023-04-19 11:07 | PM.DS1 ---
DS: Providers Provider Date Seen: 04/19/23 Date of admission: 04/16/23 13:31 Primary care physician: Not a Local Provider Admitting Clinician: Aida Conway MD Consults: 04/15/23 13:22 Consult to Hoop Bending Machine Operator [CONS] Routine Comment: Reason for Consult:: Social Service Consult Attending Physician on discharge: Aida Conway MD Date of Discharge: 04/19/23 DS: Diagnosis Discharge Diagnosis (1) Cellulitis of left leg: Status: Acute Problem details: In light of penicillin allergy we ordered ceftriaxone 1 g q.12 and Flagyl 500 mg q.8 changing ceftriaxone to vancomycin (ultimately we only covered her with one dose) and oral cefuroxime. continue flagyl 2/2 increasing proximal redness, pain and increasing CRP We can switch to a complete oral regimen once we have peaked evidence of infection MR reviewed with ortho probiotic ongoing (2) Cat bite: Status: Acute Problem details: No need to quarantine DS: Summary Hospital Course Hospital Course: HOSPITALIST DISCHARGE SUMMARY ATTENDING PHYSICIAN: Aida Conway MD FINAL DIAGNOSIS: Cat bite cellulitis, left posterior ankle HOSPITAL FOLLOWUP ISSUES: PCP REFERRALS WHILE ADMITTED: None REFERRALS AFTER DISCHARGE: None BRIEF HOSPITAL COURSE: Patient is a 62-year-old female who is otherwise healthy. Within 24 hours of a cat bite to her left heel, distal calf she presented with redness swelling and chills. She had an obvious bite/puncture wounds with scratches. T-max was 100.4?, CRP max was 2.7. MRI showed some distal fasciitis and cellulitis with no drainable abscess or osteomyelitis. She initially had been on IV ceftriaxone and Flagyl. With proximal extension we switch the ceftriaxone to oral cefuroxime and she also received 1 dose of vancomycin. At discharge she is getting 15 more doses of cefuroxime and 3 more days of oral Flagyl. She has been on probiotics and eating yogurt since the start of her antibiotics SUBSTANTIVE NOTATIONS ON IMAGING, LAB, MICROBIOLOGY/PATHOLOGY STUDIES: Seven hundred nineteen at 3:00 p.m. was her highest temp at 100.4? No elevation in her white blood cell count noted. CRP went from 2.7 down to 1.6 at discharge MRI, left lower extremity, 04/16/2023 1. Cellulitis of the posterior calf. 2. Fascial plane edema versus a small amount of fascial plane fluid along the posterior aspect of the soleus and Achilles tendon suggesting fasciitis. 3. Interstitial muscle signal abnormality involving the soleus muscle compatible with myositis. Note than an acute muscle strain could appear similarly. 4. No osteomyelitis. DISCHARGE MEDICATIONS: See Reconciled list - SIGNIFICANT CHANGES: REVIEW OF SYSTEMS No new chest pain or dyspnea Pain controlled No voiding difficulties Tolerating diet challenge PHYSICAL EXAM: CONSTITUTIONAL: VITAL SIGNS: see record. HEENT: Normocephalic, atraumatic. PERRL, EOMI, conjunctivae pink, no scleral icterus. Ears and nose externally normal. Pharynx normal. NECK: No JVD. No carotid bruit, no thyromegaly, no adenopathy. CHEST: Clear to auscultation bilaterally. HEART: S1 and S2 normal. Edema ABDOMEN: Soft, nontender. Normal bowel sounds. MUSCULOSKELETAL: No gross joint deformity or swelling. NEURO: Cranial nerves intact. Grossly intact. No asymmetric findings. SKIN: No rashes, petechiae, concerning changes PSYCHIATRIC: Mood euthymic. DISPOSITION: home with Time spent on discharge 37 minutes. Status at Discharge Functional status at discharge: independent ambulation Overall status at discharge: patient is progressing back to baseline Time Spent with Patient Time attestation: Total time spent providing and/or coordinating discharge services: Time spent: Greater than 30 minutes Exam Const: Vital Signs, click to edit/add: Vital Signs - 24 hr 04/18/23 15:15 04/18/23 19:00 04/19/23 00:15 Temperature 98.8 F 98.4 F Pulse Rate Pulse Rate [Right Pulse Oximeter] 70 77 87 Respiratory Rate 16 16 16 Blood Pressure [Le ft Arm] 123/80 126/81 Pulse Oximetry 97 97 Oxygen Delivery Me thod Room Air Room Air 04/19/23 00:15 04/19/23 03:40 04/19/23 07:40 Temperature 98.9 F 98.2 F 98.0 F Pulse Rate Pulse Rate [Right Pulse Oximeter] 87 74 77 Respiratory Rate 16 16 18 Blood Pressure [Le ft Arm] 106/71 116/69 117/71 Pulse Oximetry 96 96 97 Oxygen Delivery Me thod Room Air Room Air Room Air 04/19/23 07:49 04/19/23 11:06 Temperature 98.0 F Pulse Rate 77 Pulse Rate [Right Pulse Oximeter] 77 Respiratory Rate 18 18 Blood Pressure [Le ft Arm] Pulse Oximetry Oxygen Delivery Me thod DS: Data Data Completed and Pending Labs on day of discharge: Labs from last 24 hours 04/19/23 06:05 WBC 4.32 L RBC 4.30 Hgb 13.1 Hct 38.5 MCV 90 MCH 31 MCHC 34 Plt Count 217 Sodium 137 Potassium 3.5 L Chloride 104 Carbon Dioxide 27 BUN 13 Creatinine 0.7 Estimated Creat Clear 79.29 Estimated GFR 99 Glucose 93 Calcium 8.8 C-Reactive Protein 1.6 H Discharge Plan Discharge Disposition: Home, Self-Care Date of Admission: 04/16/23 13:31 Primary Care Provider: Provider,Not a Local Condition: Improved Anticipated Discharge Date/Time: 04/19/23 10:29 Discharge Medications: New cefuroxime axetil 500 mg Tablet 500 mg PO BID Qty: 15 0RF Lactobacillus acidophilus 0.5 mg (100 million cell) Tablet 500 mmu cells PO TIDWM Qty: 120 0RF metronidazole 500 mg tablet 500 mg PO Q8H Qty: 15 0RF Discharge Orders: Discharge Order (Routine); Ordered 04/19/23 Ordered By: Aida Conway Patient Education: Cefuroxime (By mouth) (Ceftin), Metronidazole (By mouth) (Flagyl, Flagyl 375, Flagyl ER), Probiotic (By mouth) (Acidophilus Probiotic Blend, Culturelle,..., Animal Bite (DC), Cellulitis (GEN) Additional Instructions: you can take the antibiotics together with food. Activity Level: Activity as Tolerated Discharge Diet: Regular Follow Up Appointments: Provider,Not a Local [Primary Care Provider] - 04/26/23 2:45 pm ([facility] location for follow- with Dr. Raysa Chilel, [address] [place] [address]) [phone]) Forms: [facility] Info Instructions
[2023-04-19 11:12] VITALS: BP 127/83; PULSE 83; RESP 18; TEMP 36.6; O2SAT 96
--- NOTE | 2023-04-19 12:51 | PC.NURSE ---
discharge. pt has been very pleasant. Pt alert and oriented x4. Pt uo ab susu. Pt had complaints of pain ranging from 0-4 0 in bed and 4 with movement. she did not want anything so far for pain . Pt?s redness looked better, leg did not exceed outlined areas. Pt is elevating leg, applying ice. SL was d/c intact. went over discharge packet, went over medication, appointment, instructions and education. pt went over personal beloing sheet. all belongings and paperwork where sent with pt. pt got a w/c ride to car and was helped in to car.
== END 2023-04-19 12:40 | disposition home or self-care (01) | DRG 383 ==
LOC: ED 12:05 → MEDSURG 12:58
PROVIDERS: Admitting Provider Family Medicine; Emergency Provider Family Medicine; Visit Provider Family Medicine
DX: L03.116 Cellulitis of left lower limb (principal); S91.052A Open bite, left ankle, initial encounter; S90.512A Abrasion, left ankle, initial encounter; W55.01XA Bitten by cat, initial encounter; Y92.009 Unspecified place in unspecified non-institutional (private) residence as the place of occurrence of the external cause; M60.9 Myositis, unspecified
CPT/HCPCS: 36415; 73718; 80048; 82803; 83605; 83735; 83880; 84145; 84443; 85025; 85027; 85651; 86140; 87631; 93971; 99284; G0378; A9270; J0696; J1650; J1885; J3370; J7120; S0030

== ENCOUNTER 2025-08-23 06:01 | Day surgery (SDC) | payer BC, SELFPAY ==
[2025-08-23] VITALS (24 sets, daily range): BP systolic 84–145; BP diastolic 55–87; PULSE 72–89; RESP 16; TEMP 36.7–37.2; O2SAT 96–99; BMI 22.6
[2025-08-23] MEDS: ACETAMINOPHEN 500 MG TABLET 1000 MG PO (06:42)
[2025-08-23] MEDS: OXYCODONE (CR) 10 MG TAB.ER.12H PO (06:42)
--- NOTE | 2025-08-23 07:02 | W.PM.H&PU ---
History & Physical Update History & Physical Update H&P Reviewed and patient assessed: No changes noted
[2025-08-23] MEDS: SODIUM CHLORIDE 0.9 % (FLUSH) 10 ML SYRINGE IVF (07:08)
[2025-08-23] MEDS: LACTATED RINGERS 1000 ML 1,000 ML 100 ML IV ×3 (07:08→11:05)
[2025-08-23] MEDS: MIDAZOLAM HCL 1 MG/ML inj IVP (07:10)
--- NOTE | 2025-08-23 07:15 | CRLHL7_ITS ---
For Patients: As a result of the Century Cures Act, medical imaging exams and procedure reports are released immediately into your electronic medical record. You may view this report before your referring provider. If you have questions, please contact your health care provider. INDICATION: Right THR TECHNIQUE: C-arm fluoroscopy for right THR. A single C-arm spot image was obtained. Fluoroscopy time was 41.2 seconds. COMPARISON: None FINDINGS: C-arm fluoroscopy for right THR. Prosthetic components appear to be well-seated and aligned on the single image provided. IMPRESSION: C-arm fluoroscopy for right THR. Dictated by Brandon Acharya MD @ 08/23/2025 11:37:59 AM (Electronically Signed)
--- NOTE | 2025-08-23 07:20 | SUR.PREOP ---
TIME?OUT:?0710 PT/RN/MDA?VERIFICATION?OF?SURGICAL?SITE,?PROCEDURE,?AND?CONSENT OBTAINED?PRIOR?TO?INVASIVE?PROCEDURE.
[2025-08-23] MEDS: TRANEXAMIC ACID 100 MG/ML INJ 1000 MG IV (07:45)
--- NOTE | 2025-08-23 08:58 | P.ORPRC_ITS ---
Procedure Note Date of procedure: 08/23/25 Procedure: PREOPERATIVE DIAGNOSIS: 1. Right hip osteoarthritis, severe, primary POSTOPERATIVE DIAGNOSIS: 1. Right hip osteoarthritis, severe, primary PROCEDURE: 1. Right total hip arthroplasty-anterior approach 2. Intraoperative fluoroscopy interpreted by Jluis Cheema M.D. for intraoperative evaluation of implant position, alignment, leg length, and offset Fluoroscopy time was 41.2 seconds. SURGEON: Jluis Cheema MD. UTILITY APPRAISER: Camacho Perdomo PA-C; MENG Dowling - Of note, a skilled assistant grocery store manager was critical for this case to aid in patient positioning, tissue retraction, limb manipulation/positioning, and closure. ANESTHESIA: Spinal anesthetic EBL: 350 ml IMPLANTS: DePuy J&J uncemented total hip [place] cup size 50, hole eliminator, +4 neutral liner Actis stem, high offset, size 5 +1 mm ceramic 32mm head COMPLICATIONS: None evident INDICATIONS: The patient is a pleasant 64yo female who has experienced severe right hip pain and difficulty bearing weight. Workup included x-rays which revealed severe osteoarthrosis in the hip. Given the deformity, the dysfunction, and the pain, as well as the failure of nonoperative management, recommendation was made for surgery. FINDINGS: Full-thickness cartilage loss throughout the femoral head especially posteriorly. Significant chondromalacia acetabulum as well. Osteophytes around the femoral head/neck junction and perimeter of the acetabulum. Moderate effusion upon entering the joint. DESCRIPTION OF PROCEDURE: Following a thorough discussion of risks, benefits, and alternatives consent was obtained and the right hip was marked. The patient was brought to the operating room and placed supine on the operating table. Induction of anesthesia was undertaken. 1 g IV Ancef and 1 g tranexamic acid was administered within 1 hr of incision preoperatively. Proper time-out was performed identifying proper patient, site, procedure. The operative extremity was prepped and draped in the appropriate sterile fashion using ChloraPrep after the patient was positioned on the [place] table with head in neutral alignment and all bony prominences well padded. C-arm fluoroscopic imaging was utilized to confirm proper pelvis rotation and position, and to get true AP films of both the contralateral left, and the affected right hip. This is for comparison. A longitudinal incision was made starting approximately 1 cm distal to the ASIS, and 2-3 cm lateral. The incision was extended distally aiming toward the fibular head. Sharp incision through skin and bovie cautery through the subcutaneous tissue allowed identification of the TFL fascia. This was sharply divided, and the fascia bluntly released from the muscle fibers as we dissected medial. Upon coming to the medial border, we were able to retract the TFL laterally, and penetrated the deeper fascia and identify the crossing circumflex vessels. These were ligated/cauterized. The rectus was elevated from the capsule, and retractors placed laterally and medially along the femoral neck to help with visualization of the capsule. We then performed an inverted T capsulotomy. The capsule was tagged for later repair. Retractors were placed inside the capsule. The femoral neck was visualized after releasing medially down to the lesser trochanter, along the saddle laterally, and up onto the acetabulum. The femoral neck cut was made in line with our preoperative templating. The head was removed in a single piece, and sized. We turned our attention to acetabular preparation. Initially, the labrum was resected from around the perimeter, the pulvinar was excised, allowing us to visualize the false wall. We started the reaming with a 43 mm reamer. This was medialized down to the true wall. We then enlarged our reamers sequentially up to one size less than the selected cup size. We trialed at the same size and found it to have an excellent fit. The selected cup was then opened, inserted, and impacted in line with the goal of 40? of abduction, and 20-25? of antever rocio. This was confirmed on C-arm fluoroscopic imaging to be in the appropriate/goal position. Once the cup was placed we placed a hole eliminator and a liner consistent with preop planning. Attention was turned to the femoral preparation. The limb was extended, externally rotated, and adducted. The posteromedial capsule was released, as retractors were placed allowing excellent access to the proximal femur. Initially a box fabricator was followed by canal finder followed by various broaches. We broached sequentially up to the size noted above, found it to have excellent rotational control, and trialing various heads and necks, revealed that appropriate neck offset, and the above noted head size provided the greatest stability, and quaker of length, and offset. C-arm fluoroscopic imaging confirmed position of the stem, as well as leg lengths, which were compared with the pre procedure all fluoroscopic images. Trial implants were removed, the real femoral stem inserted, as was the appropriate head. After reducing, the leg was placed through range of motion and stability was confirmed anterior, posterior, and lateral. A 3 min Betadine soak was then performed, and thorough irrigation with normal saline followed. Closure of the capsule was performed with #1 PDS. Bleeding was confirmed to be controlled at this stage, and the TFL fascia was closed with #0 strata fix. Subcutaneous, and subcuticular closure was performed with 2-0 Stratafix and 4-0 Stratafix, respectively. Dressings were applied, and the patient was awoken from anesthesia and transferred the PACU in stable condition. A skilled assistant grocery store manager was critical for this case to aid in patient positioning, tissue retraction, acetabular and proximal femoral exposure, limb manipulation/positioning, dislocation/relocation, patient safety, and closure. PLAN: 1. Weight bear as tolerated operative extremity. 2. 23 hr perioperative antibiotics. 3. Ice. 4. PT/OT consults for ambulation assistance/mobility education. 5. Social work consult for discharge planning. 6. DVT prophylaxis with at SCDs and Xarelto x5 days followed by aspirin for a total of 1 month.
--- NOTE | 2025-08-23 09:43 | CRLHL7_ITS ---
For Patients: As a result of the Cures Act, medical imaging exams and procedure reports are released immediately into your electronic medical record. You may view this report before your referring provider. If you have questions, please contact your health care provider. Indication: Right hip arthroplasty Technique: Pelvis and right hip 2 view Findings/Impression : Hardware from a right hip arthroplasty is in satisfactory position. Bone alignment is normal. No sign of acute fracture. There are postoperative changes in the soft tissues. Moderate joint space narrowing left hip. Moderate pubic symphysis degenerative change Dictated by Miroslava Nettles MD @ 08/23/2025 2:04:36 PM (Electronically Signed)
--- NOTE | 2025-08-23 09:49 | P.ANES_ITS ---
Anesthesia Charges Start Date/Time Anesthesia Start Date: 08/23/25 Anesthesia Start Time: 07:22 Stop Date/Time Anesthesia Stop Date: 08/23/25 Anesthesia Stop Time: 09:46 Coding CPT Codes CPT Codes: ANESTH HIP ARTHROPLASTY - 40089 ([id number]) P1 - NORMAL HEALTHY PATIENT, QK - INFO SPECIALIST 2-4 CNCRNT ANES PROC
--- NOTE | 2025-08-23 09:49 | W.ANESCHARGE ---
Anesthesia Charges Start Date/Time Anesthesia Start Date: 08/23/25 Anesthesia Start Time: 07:22 Stop Date/Time Anesthesia Stop Date: 08/23/25 Anesthesia Stop Time: 09:46 Coding CPT Codes CPT Codes: ANESTH HIP ARTHROPLASTY - 56562 ([id number]) P1 - NORMAL HEALTHY PATIENT, QK - FRAME TABLE OPERATOR 2-4 CNCRNT ANES PROC
--- NOTE | 2025-08-23 10:00 | W.PM.NB ---
Nerve Block Nerve Block Time Seen by Provider: 07:15 Date Seen: 08/23/25 Type of block requested by surgeon for post-operative analgesia: JAYESH/LFCN Side: right Time out performed: Yes Verification of patient name: Yes Verification of date of : Yes Site marking: site marked Name of person performing procedure: Tom Continuous monitoring Was continuous monitoring of O2 sat, B/P, automatic brine mixer operator, recorded every 15 minutes?: Yes Procedure Checklist: sterile prep, needles and gloves Ultrasound guided. Images saved: Yes Medications given in 5ml increments after negative aspiration: Ropivicaine %: 0.5 mL: 30 Needle gauge: 20 Precedex (mcg): 25 Patient tolerated procedure well: Yes Additional comments: Needle noted below psoas tendon needle noted adjacent to LFCN Block Charges Block Charge (with Pro Fee): Other Periph Nerve Block Use of Ultrasound Machine for Block: Yes- US Guidance/pain block
--- NOTE | 2025-08-23 10:01 | P.ANES_ITS ---
Anesthesia Charges Start Date/Time Anesthesia Start Date: 08/23/25 Anesthesia Start Time: 07:22 Stop Date/Time Anesthesia Stop Date: 08/23/25 Anesthesia Stop Time: 09:46 Coding CPT Codes CPT Codes: ANESTH HIP ARTHROPLASTY - 53127 ([id number]) QK - BACK STRIP MACHINE OPERATOR 2-4 CNCRNT ANES PROC, QX - GLUING PRESSMAN SVC W/ MD MED DIRECTION, P1 - NORMAL HEALTHY PATIENT
--- NOTE | 2025-08-23 10:01 | W.ANESCHARGE ---
Anesthesia Charges Start Date/Time Anesthesia Start Date: 08/23/25 Anesthesia Start Time: 07:22 Stop Date/Time Anesthesia Stop Date: 08/23/25 Anesthesia Stop Time: 09:46 Coding CPT Codes CPT Codes: ANESTH HIP ARTHROPLASTY - 58543 ([id number]) QK - MOLD STRIPPER 2-4 CNCRNT ANES PROC, QX - LABORER PLUMBING SVC W/ MD MED DIRECTION, P1 - NORMAL HEALTHY PATIENT
[2025-08-23] MEDS: IBUPROFEN 200 MG TABLET 600 MG PO (11:19)
[2025-08-23] MEDS: ACETAMINOPHEN 500 MG TABLET PO (12:48)
--- NOTE | 2025-08-23 12:57 | SUR.PHASEII ---
Pt up to bathroom with assist of 2 with gait belt and walker. Pt ambulated to bathroom with no issues. Successfully voided. Pt did report feeling tired upon arrival back to room. No Nausea.
--- NOTE | 2025-08-23 14:09 | SUR.PHASEII ---
OT in room with patient.
== END 2025-08-23 15:28 | disposition home or self-care (01) ==
LOC: OR 06:02
PROVIDERS: Visit Provider Orthopaedic Surgery Sports Medicine
PROC: (CPT 27130; principal; 2025-08-23 07:15)
DX: M16.11 Unilateral primary osteoarthritis, right hip (principal); G89.18 Other acute postprocedural pain
CPT/HCPCS: 27130; 01214; 36415; 64450; 73501; 76942; 86850; 86900; 86901; 97110; 97116; 97161; 97165; 97535; A9270; C1776; J0690; J1100; J2250; J2405; J2704; J2795; J3010; J7120

== ENCOUNTER 2025-09-17 23:12 | Emergency (ER) | payer BC, SELFPAY ==
--- OUTSIDE RECORDS SUMMARY | 2025-07-28 13:20 | XMS_ITS | Encounter Summary ---
Author Organization [facility] Address [address] [place] [address] Care Team Providers Care Human Resources Benefits Specialist Name Role Phone Cherelle Khoury MD Primary Care Provider Tiffanie De La Paz MD Unavailable [phone] Cherelle Khoury MD Unavailable [phone] Tiffanie De La Paz MD Unavailable [phone] Simran Lam MD Unavailable [phone] Simran Lam MD Unavailable [phone] Reason for Visit * ReasonCommentsTrauma Encounter Details DateTypeDepartmentCare Team (Latest Contact Info)Ojtiljnpkki56/29/2025 2:20 PM CDTOffice Visit [address] [place] [phone] Cherelle Khoury MD [address] [place] [address] [phone] Cat bite of lower leg, right, initial encounter (Primary Dx) Social History Tobacco UseTypesPacks/DayYears UsedDateSmoking Tobacco: ElatpfOzfimwkboy5Ybtd: 02/12/1983Passive Smoke Exposure: PastSmokeless Tobacco: Never Tobacco Cessation:Counseling Given: Not Answered Comments:smoked for just a couple of years Alcohol UseStandard Drinks/WeekCommentsYes0 (1 standard drink = 0.6 oz pure alcohol)OccasionallySocial Connection and Isolation PanelAnswerDate Recorded Frequency of Communication with Friends and FamilyNot on file04/21/2025How often do you get together with friends or relatives?Once a week04/21/2025ttends Uatsdin ServicesNot on file04/21/2025tive Member of Clubs or Organizations Not on file04/21/2025ttends Club or Organization MeetingsNot on file04/21/2025 Marital StatusNot on file04/21/2025PHQ-2AnswerDate RecordedPHQ-2 Score0 04/26/2025[facility] [place] [facility] - Occupational Stress QuestionnaireAnswerDate RecordedDo you feel stress - tense, restless, nervous, or anxious, or unable to sleep at night because yourmind is troubled all the time - these days?To some rpepcd1804/21/2025Exercise Vital SignAnswerDate Recorded On average, how many days per week do you engage in moderate to strenuous exercise (like a brisk walk)?1 day04/21/2025On average, how many minutes do you engage in exercise at this level?30 min04/21/2025dolescent EducationAnswerDate RecordedGetting School Help NeededNot on file06/22/2023Food InsecurityAnswerDate RecordedWithin the past 12 months, did you worry that your food would run out before you got money to buy more?No04/21/2025Within the past 12 months, did the food you bought just not last and you didn???t have money to getmore?No 04/21/2025Housing StabilityAnswerDate RecordedDo you have housing? (Housing is defined as stable permanent housing and does not include staying outside in a car, in a tent, in an abandoned building, in an overnight intermediate, or couch-surfing.)Yes04/21/2025re you worried about losing your housing?No 04/21/2025Financial Resource StrainAnswerDate RecordedWithin the past 12 months, have you or your family members you live with been unable to get utilities (heat, electricity) when it was really needed?No04/21/2025Transportation Needs AnswerDate RecordedWithin the past 12 months, has lack of transportation kept you from medical appointments, getting your medicines, non-medical meetings or appointments, work, or from getting things that you need?No04/21/2025 Interpersonal SafetyAnswerDate RecordedDo you feel physically and emotionally safe where you currently live?Yes04/26/2025Within the past 12 months, have you been hit, slapped, kicked or otherwise physically hurt by someone?No04/26/2025 Within the past 12 months, have you been humiliated or emotionally abused in other ways by your partner or ex-partner?No04/26/2025CommentsNoSex and Gender InformationValueDate RecordedSex Assigned at HzcnjUguwfn59/16/2020 11:11 AM CDTLegal BkiLtoroq92/04/2012 4:18 AM CSTGender LvvhfzctBtuzpl40/16/2020 11:11 AM CDTSexual OrientationNot on fileOccupationIndustryJob Start DateJob End Date stay at home momNot on fileNot on fileNot on filecoderNot on fileNot on fileNot on filedocumented as of this encounter Last Filed Vital Signs Vital SignReadingTime TakenCommentsBlood Mwxfjtay101/8010 3:16 PM CDT Qzwhc702807/28/2025 2:16 PM UGIOlnwfujoqmh82.7 ??C (98.1 ??F)07/28/2025 2:16 PM CDTRespiratory Ofdd0926 2:16 PM CDTOxygen Cksairdprf03%07/28/2025 2:16 PM CDTInhaled Oxygen Concentration--Mmqqnm50.2 kg (135 lb)07/28/2025 2:16 PM CDT Etwocv552.5 cm (5' 6.75)07/28/2025 2:16 PM CDTBody Mass Index21.310 2:16 PM CDTdocumented in this encounter Patient Instructions * Patient Instructions* Cherelle Khoury MD - 07/28/2025 2:20 PM CDT Images from the original note were not included. Watch for any signs of increasing infection and Please, call our clinic or go to the ER immediatelyif signs or symptoms worsen or fail to improve as anticipated. Based on our discussion, I have outlined the following instructions for you: - Take the oral cefuroxime and oral metronidazole exactly as prescribed for 7 days. - Take care of your wound by cleaning it gently with antibacterial soap and water, patting it dry, applying antibacterial ointment, and keeping it covered with a clean bandage. Do not use peroxide onthe wound. - Use a warm compress and keep your leg raised to help with healing. - Watch for any signs of infection, such as spreading redness or increased pain, and use the written warning signs you were given to help you know what to look for. - Go to your pre-op appointment for your right hip surgery on August 04, 2025. - Send the dates you received your COVID and flu vaccines through M87 so your records can be updated. - Read the letter you were given about cat safety. Thank you again for your visit, and we look forward to supporting you in your journey to better health. Thank you so much or choosing [facility] for your Health Care. It was a pleasure seeing you at your visit today! Please contact us with any questions or concerns you may have. Cherelle Khoury MD To reach your [facility] care team after hours call: [phone] press #2 to speak with your care team. This will get you to our clinic instead of routing to central [facility] scheduling. PLEASE NOTE OUR HOURS HAVE CHANGED secondary to COVID-19 coronavirus pandemic, as we are trying to minimize patient exposure to the virus, which is now widespread in the [facility]. These hours may changewith very little notice. We apologize for any inconvenience. Our current clinic hours are: Saturday- 7:00am - 6:00pm in person. Saturday 7:00am- 5:00pm Saturday and Saturday : Closed to in person and virtual visits We have telephone and virtual visit times available between 7:00am - 6pm on Saturday-Saturday as well. Our pharmacy hours: Saturday through Saturday 8:00am to 5:00pm Saturday - 9:00 am to 12 noon Saturday : Closed. ### Please note: at this time we are not accepting any walk-in visits. ### There is also information available at our web site: [email or web address] If your provider ordered any lab tests and you do not receive the results within 10 business days, please call the clinic. If you need a medication refill please contact your pharmacy. Please allow 3 business days for yourrefill to be completed. Our clinic offers telephone visits and e visits. Please ask one of your team members to explain more. Use DocLogixt (secure email communication and access to your chart) to send your primary care provider a message or make an appointment. Ask someone on your Team how to sign up for DocLogixt. * Attachments The following attachments cannot be sent through Care Everywhere. * Bites: Animal (Finnish) * Cellulitis (Finnish) documented in this encounter Progress Notes * Cherelle Khoury MD - 07/28/2025 2:20 PM CDT Images from the original note were not included. [address] [address] Office: [phone] Assessment & Plan ICD-10-CM 1. Cat bite of lower leg, right, initial encounter S81.851A cefuroxime (CEFTIN) 500 MG tablet W55.01XA metroNIDAZOLE (FLAGYL) 500 MG tablet Please, call our clinic or go to the ER immediately if signs or symptoms worsen or fail to improve as anticipated. See AVS. With pt's hx of cat bite with Pasteurella sepsis in 2022 will err on side of caution. Assessment & Plan Cat bite of lower leg, right, initial encounter: - Cat bite to right lower leg with puncture wound, July 28, 2025. High risk for infection due toprior severe infection and hospitalization after previous cat bite (April 13, 2023). Pasteurella species likely pathogen from prior episode. Concern for cellulitis, lymphangitis, and bacterial sepsis. - Prescribed oral cefuroxime and oral metronidazole for 7 days due to allergy to amoxicillin. Side effect: rash with amoxicillin, tolerated cefuroxime and metronidazole well in past. Benefit: treat and prevent infection. Alternative: augmentin not used due to allergy. - Monitor for spreading redness, increased pain, or other warning signs of infection. - Wound care: clean with antibacterial soap and water, pat dry, keep covered, avoid peroxide. - Applied antibacterial ointment and dressing in clinic. - Use heat and elevation to help healing. - Scheduled pre-op evaluation for right hip arthroplasty August 04, 2025. - Send COVID and flu vaccine dates via M87 for record update. - Provided written warning signs for cellulitis and infection. - Printed letter about cat safety concerns. In my medical opinion, this cat should be euthanized for the family's safety. Follow-up : Return in about 1 week (around 08/04/2025) for preop for right hip replacement , w/ Dr. Darby for 40 min appt. The longitudinal plan of care for the diagnosis(es)/condition(s) as documented were addressed during this visit. Due to the added complexity in care, I will continue to support Sugar in the subsequent management and with ongoing continuity of care. Consent was obtained from the patient to use an AI scribe/documentation tool in the creation of this note.This note/dictation was performed and completed with the assistance of voice recognition software and an AI scribe. It may contain inadvertant automotive parts person errors, omissions and/or inadvertent word substitution. --Cherelle Khoury MD Subjective Sugar is a 64 year old, presenting for the following health issues: Trauma and the following other medical problems: 1. Cat bite of lower leg, right, initial encounter 07/28/2025 2:12 PM Additional Questions Roomed by Adriana Pearson MA Accompanied by Self Trauma History of Present Illness Reason for visit: Cat bite/Preop if time allows Symptom onset: Today Symptoms include: Open wound, pain, slightly red. Last cat bite, I was in the hospital for a week so I do not want to wait Symptom intensity: Moderate Symptom progression: Staying the same Had these symptoms before: Yes Has tried/received treatment for these symptoms: Yes Previous treatment was successful: Yes Prior treatment description: Hospitalized, treated with numerous antibiotics oral and IV She is taking medications regularly. Animal Bite- Onset: 5 hours ago Location of bite: right inner leg below knee cap Description: Type of animal: cat. Was the animal known to you: YES- house cat Animal's Immunization status: Animal's immunizations up to date Circumstances of bite: unprovoked attack.(If cat sees other animals outside regularly a neighbor outdoor cat provokes this type of behavior) Accompanying Signs & Symptoms: Redness YES Pain level: moderate, 5/10 Warmth No Drainage No Fevers No Therapies tried- cleaned with soap and water thoroughly then peroxide and bandaged with N/A relief When was your last Tetanus shot? 10/20/2021 History of Present Illness- Cat bite (current episode, July 28, 2025) - Bitten by daughter's indoor-only cat at about 9:00 AM on July 28, 2025 - Unprovoked bite after cat saw outdoor cat, aggressive behavior - Bite just below right knee joint, through heavy sweatpants - [place] cat growl before attack, cat jumped and attacked while on phone for pre- op appointment - Painful bite, puncture wounds, bruising - Washed wound with soap and water, then used peroxide and bandage - Significant distress and stress from repeated aggression - Concern about infection risk due to upcoming right hip arthroplasty on August 24, 2025 - Daughter???s cat previously bit , only superficial wounds - Discussed antibiotics: cefuroxime and metronidazole, tolerated well in past, allergic to amoxicillin (rash) Cat bite (previous episode, April 13, 2023) - Bitten by same cat on April 13, 2023, unprovoked, alone at home - Rapidly spreading infection with fever, hospitalized at [facility] April 15-2022 - Infection spread quickly, visible red streaks up calf, hospital considered transfer to larger facility - Treated with IV antibiotics, then switched to oral; tolerated cefuroxime and metronidazole, no issues - Allergy to amoxicillin (rash), no reaction during hospitalization - Ate yogurt and probiotics during antibiotics - Followed up with [facility] after discharge - Cat evaluated by vet two weeks after hospitalization; pheromone plug-in and mats tried, aggressive behavior continued Right hip pain and osteoarthritis - Scheduled for right hip replacement August 24, 2025 - Chronic pain in right thigh, worse, radiates to knee - Persistent, worsening pain, interferes with daily activities - Tonus grade 3 and near bone on bone per prior evaluation Vaccinations - Plans for COVID and flu vaccines on Saturday at pharmacy - Last tetanus vaccine October 20, 2021 Misc - Emotional distress and concern about safety at home due to cat???s aggression - provider = Cat lover, had two cats for many years - Daughter is strong animal advocate, lives at home - recommended cat be euthanized for family's safety. Letter given to pt. Patient Active Problem List Diagnosis FAMILY HX-BREAST MALIG- mother Family history of macular degeneration- mother Major depressive disorder, recurrent episode, in full remission Vaginal dryness, menopausal Symptomatic menopausal or female climacteric states- postmenopausal since 2013 Migraine without aura and without status migrainosus, not intractable- no problems currently Clavicle enlargement- right medial Secondary insomnia Nasal vestibulitis Dry eyes- [facility] Osteoarthritis of right sacroiliac joint Liver nodule- right posterior 7mm- seen incidentally on CT abd/pelvis 12/23/2023, unchanged on LiverMRI 06/05/2024 Elevated glucose- needs A1c follow up Atrophic vaginitis- needs refill on vaginal estrogen tablet Nocturia- gets up 2-3x/night Insomnia secondary to anxiety and stress CARDIOVASCULAR SCREENING; LDL GOAL LESS THAN 130 Vaginitis and vulvovaginitis --12/2024- recurrent redness and irritated in appearance Fatty liver disease, nonalcoholic Urethral caruncle Inflammation of vaginal introitus - 1 cm raw, irritated area at the introitus - just right lateral of the urethra, also urethral caruncle Asymptomatic menopausal state Thyroid nodule Current Outpatient Medications Medication Sig Dispense Refill cefuroxime (CEFTIN) 500 MG tablet Take 1 tablet (500 mg) by mouth 2 times daily for 7 days. 14 tablet 0 estradiol (ESTRACE) 0.1 MG/GM vaginal cream Place 1 g vaginally twice a week. Pea size amount on tip of finger vaginally, daily for 2 weeks, then twice weekly 42.5 g 1 estradiol (YUVAFEM) 10 MCG TAB[address] tablet [address] 1 tablet (10 mcg) vaginally twice a week 24 tablet 3 metroNIDAZOLE (FLAGYL) 500 MG tablet Take 1 tablet (500 mg) by mouth 3 times daily for 7 days. 21 tablet 0 mupirocin (BACTROBAN) 2 % external ointment Apply topically 3 times daily. To nares until clear 22 g 3 triamcinolone (KENALOG) 0.1 % external cream Apply topically 2 times daily. To eczema rash on body as needed 30 g 3 Allergies[1] Review of Systems Constitutional, HEENT, cardiovascular, pulmonary, GI, , musculoskeletal, neuro, skin, endocrine and psych systems are negative, except as otherwise noted. Objective BP 96/84 Pulse 95 Temp 98.1 ??F (36.7 ??C) (Tympanic) Resp 16 Ht 1.695 m (5' 6.75) Wt 61.2 kg (135 lb) LMP 01/31/2012 SpO2 99% BMI 21.30 kg/m?? Body mass index is 21.3 kg/m??. Physical Exam GENERAL: alert and no distress EYES: Eyes grossly normal to inspection, conjunctivae and sclerae normal HENT: nose and mouth without ulcers or lesions NECK: , no asymmetry, masses, or scars RESP: lungs audibly clear - no rales, rhonchi or wheezes MS: no gross musculoskeletal defects noted, no edema SKIN: there is a puncture with a leading trail laceration and adjacent superficial laceraion - consistent with cat bite to the right inner lower leg on the right medial calf without any surrounding edema or induration, heat or erythema. No signs of infection at this time. Wound cleaned and The areawas then dressed with bacitracin ointment and large bandaids today. no suspicious lesions or rashes NEURO: Normal strength and tone, mentation intact and speech normal PSYCH: mentation appears normal, affect normal/bright Signed Electronically by: Cherelle Khoury MD [1] Allergies Allergen Reactions Amoxicillin Rash P PICKER documented in this encounter Plan of Treatment DateTypeDepartmentCare Team (Latest Contact Info)Yzqflsrlfut00/31/2026 8:40 AM CDTOffice Visit [address] [phone] Cherelle Khoury MD [facility] [place] [address] documented as of this encounter Visit Diagnoses Diagnosis Cat bite of lower leg, right, initial encounter- Primary documented in this encounter Additional Health Concerns AssessmentNoted TimePHQ-9 Depression Total Score: 1:40 PM CDT documented as of this encounter Care Teams Team MemberRelationshipSpecialtyStart [place] [address] [place] [address] PCP - GeneralFamily Practice10/26/11 Tiffanie De La Paz MD [address] [place] [address] MDDermatology03/13/24 [place] [address] [place] [address] Assigned PCP05/22/24 Tiffanie De La Paz MD [address] [place] [address] Assigned Dermatology Provider12/20/24 Simran Lam MD [address] [address] PhysicianOB/Gyn05/05/25 Simran Lam MD [address] [address] Assigned OBGYN Provider05/22/25documented as of this encounter
--- OUTSIDE RECORDS SUMMARY | 2025-07-28 13:20 | XMS_ITS | Encounter Summary ---
Author Organization [facility] Address [address] [place] [id number] Care Team Providers Care Construction Engineer Name Role Phone Cherelle Khoury MD Primary Care Provider Tiffanie De La Paz MD Unavailable [phone] Cherelle Khoury MD Unavailable [phone] Tiffanie De La Paz MD Unavailable [phone] Simran Lam MD Unavailable [phone] Simran Lam MD Unavailable [phone] Reason for Visit * ReasonCommentsTrauma Encounter Details DateTypeDepartmentCare Team (Latest Contact Info)Tqporbidzzu57/29/2025 2:20 PM CDTOffice Visit [address] [place] [phone] Cherelle Khoury MD [address] [place] [address] [phone] Cat bite of lower leg, right, initial encounter (Primary Dx) Social History Tobacco UseTypesPacks/DayYears UsedDateSmoking Tobacco: BavfukEhrpjqbuht4Pgnr: 02/12/1983Passive Smoke Exposure: PastSmokeless Tobacco: Never Tobacco Cessation:Counseling Given: Not Answered Comments:smoked for just a couple of years Alcohol UseStandard Drinks/WeekCommentsYes0 (1 standard drink = 0.6 oz pure alcohol)OccasionallySocial Connection and Isolation PanelAnswerDate Recorded Frequency of Communication with Friends and FamilyNot on file04/21/2025How often do you get together with friends or relatives?Once a week04/21/2025ttends Buddhist ServicesNot on file04/21/2025tive Member of Clubs or Organizations Not on file04/21/2025ttends Club or Organization MeetingsNot on file04/21/2025 Marital StatusNot on file04/21/2025PHQ-2AnswerDate RecordedPHQ-2 Score0 04/26/2025[facility] [place] [facility] - Occupational Stress QuestionnaireAnswerDate RecordedDo you feel stress - tense, restless, nervous, or anxious, or unable to sleep at night because yourmind is troubled all the time - these days?To some jbtmuy3504/21/2025Exercise Vital SignAnswerDate Recorded On average, how many [...] in an abandoned building, in an overnight half-way, or couch-surfing.)Yes04/21/2025re you worried about losing your [...] ex-partner?No04/26/2025CommentsNoSex and Gender InformationValueDate RecordedSex Assigned at McsljSqhyks41/16/2020 11:11 AM CDTLegal DnkUuasfx88/04/2012 4:18 AM CSTGender TwazqcrjTeoyof26/16/2020 11:11 AM CDTSexual OrientationNot on fileOccupationIndustryJob Start DateJob End Date stay at home momNot on fileNot on fileNot on filecoderNot on fileNot on fileNot on filedocumented as of this encounter Last Filed Vital Signs Vital SignReadingTime TakenCommentsBlood Zvvlxssa306/8010 3:16 PM CDT Vbajk487207/28/2025 2:16 PM QYWZjqjxdqmvni20.7 ??C (98.1 ??F)07/28/2025 2:16 PM CDTRespiratory Vcqj8299 2:16 PM CDTOxygen Paqepysnzt61%07/28/2025 2:16 PM CDTInhaled Oxygen Concentration--Rwhgfh44.2 kg (135 lb)07/28/2025 2:16 PM CDT Nqnvvu516.5 cm (5' 6.75)07/28/2025 2:16 PM CDTBody Mass [...] received your COVID and flu vaccines through [employer] so your records can be updated. - Read the letter you were given about cat safety. Thank you again for your visit, and we look forward to supporting you in your journey to better health. Thank you so much or choosing [facility] for your Health Care. It was a pleasure seeing you at your visit today! Please contact us with any questions or concerns you may have. Cherelle Khoury MD To reach your [facility] care team after hours call: [phone] press #2 to speak with your care team. This will get you to our clinic instead of routing to central [facility] scheduling. PLEASE NOTE OUR HOURS HAVE CHANGED secondary to COVID-19 coronavirus pandemic, as we are trying to minimize patient exposure to the virus, which is now widespread in the [facility]. These hours may changewith very little notice. [...] also information available at our web site: [email or web address] If your provider ordered any lab tests and you do not receive the results within 10 business days, please call the clinic. If you need a medication refill please contact your pharmacy. Please allow 3 business days for yourrefill to be completed. Our clinic offers telephone visits and e visits. Please ask one of your team members to explain more. Use [employer] (secure email communication and access to your chart) to send your primary care provider a message or make an appointment. Ask someone on your Team how to sign up for [employer]. * Attachments The following attachments cannot be sent through Care Everywhere. * Bites: Animal (Iranian) * Cellulitis (Iranian) documented in this encounter Progress Notes * Cherelle Khoury MD - 07/28/2025 2:20 PM CDT Images from the original note were not included. [address] [address] Office: [phone] Assessment & Plan ICD-10-CM 1. Cat bite [...] Send COVID and flu vaccine dates via [employer] for record update. - Provided written warning [...] an AI scribe. It may contain inadvertant editorial assistant errors, omissions and/or inadvertent word substitution. --Cherelle [...] right knee joint, through heavy sweatpants - [place] cat growl before attack, cat jumped and [...] Rapidly spreading infection with fever, hospitalized at [facility] April 15-2022 - Infection spread quickly, visible [...] medial Secondary insomnia Nasal vestibulitis Dry eyes- [facility] Osteoarthritis of right sacroiliac joint Liver nodule- [...] MD [1] Allergies Allergen Reactions Amoxicillin Rash STICKER documented in this encounter Plan of Treatment DateTypeDepartmentCare Team (Latest Contact Info)Ndbdjocryxg28/31/2026 8:40 AM CDTOffice Visit [address] [phone] Cherelle Khoury MD [facility] [place] [address] documented as of this encounter Visit Diagnoses Diagnosis Cat bite of lower leg, right, initial encounter- Primary documented in this encounter Additional Health Concerns AssessmentNoted TimePHQ-9 Depression Total Score: 1:40 PM CDT documented as of this encounter Care Teams Team MemberRelationshipSpecialtyStart [place] [address] [place] [address] PCP - GeneralFamily Practice10/26/11 Tiffanie De La Paz MD [address] [place] [address] MDDermatology03/13/24 [place] [address] [place] [address] Assigned PCP05/22/24 Tiffanie De La Paz MD [address] [place] [address] Assigned Dermatology Provider12/20/24 Simran Lam MD [address] [address] PhysicianOB/Gyn05/05/25 Simran Lam MD [address] [address] Assigned OBGYN Provider05/22/25documented as of this encounter
--- OUTSIDE RECORDS SUMMARY | 2025-08-04 11:20 | XMS_ITS | Encounter Summary ---
Author Organization [facility] Address [address] [place] [id number] Care Team Providers Care Generator Operator Straight Bevel Gear Name Role Phone Cherelle Khoury MD Primary Care Provider Tiffanie De La Paz MD Unavailable [phone] Cherelle Khoury MD Unavailable [phone] Tiffanie De La Paz MD Unavailable [phone] Simran Lam MD Unavailable [phone] Simran Lam MD Unavailable [phone] Reason for Visit * ReasonCommentsPre-Op Exam Encounter Details DateTypeDepartmentCare Team (Latest Contact Info)Tmtmajtgsly51/05/2025 11:20 AM CSTOffice Visit M [address] [place] [phone] Cherelle Khoury MD [address] [place] [id number] Preop general physical exam (Primary Dx); Primary osteoarthritis of right hip; Urethral caruncle Social History Tobacco UseTypesPacks/DayYears UsedDateSmoking Tobacco: NcmoobUzexoiwfvw5Udji: 02/12/1983Passive Smoke Exposure: PastSmokeless Tobacco: Never Comments:smoked for just a c ouple of years Alcohol UseStandard Drinks/WeekCommentsYes0 (1 standard drink = 0.6 oz pure alcohol)OccasionallySocial Connection and Isolation PanelAnswerDate Recorded Frequency of Communication with Friends and FamilyNot on file04/21/2025How often do you get together with friends or relatives?Once a week04/21/2025ttends Jainism ServicesNot on file04/21/2025tive Member of Clubs or Organizations Not on file04/21/2025ttends Club or Organization MeetingsNot on file04/21/2025 Marital StatusNot on file04/21/2025PHQ-2AnswerDate RecordedPHQ-2 Score0 04/26/2025[facility] [place] [facility] - Occupational Stress QuestionnaireAnswerDate RecordedDo you feel stress - tense, restless, nervous, or anxious, or unable to sleep at night because yourmind is troubled all the time - these days?To some olvzmx1204/21/2025Exercise Vital SignAnswerDate Recorded On average, how many [...] in an abandoned building, in an overnight snf, or couch-surfing.)Yes04/21/2025re you worried about losing your [...] ex-partner?No04/26/2025CommentsNoSex and Gender InformationValueDate RecordedSex Assigned at ZbwlpAuomwt47/16/2020 11:11 AM CDTLegal UhiPuysxm38/04/2012 4:18 AM CSTGender KooegtygWkvvwt92/16/2020 11:11 AM CDTSexual OrientationNot on fileOccupationIndustryJob Start DateJob End Date stay at home momNot on fileNot on fileNot on filecoderNot on fileNot on fileNot on filedocumented as of this encounter Last Filed Vital Signs Vital SignReadingTime TakenCommentsBlood Rscowzxs706/7208/04/2025 11:18 AM HOSPICE MANAGER Fujxv308108/04/2025 11:18 AM YDPFqpawvgamej97.6 ??C (97.9 ??F)08/04/2025 11:18 AM CSTRespiratory Pffg304910/04/2024 11:18 AM CSTOxygen Rxiksygvqz93%08/04/2025 11:18 AM CSTInhaled Oxygen Concentration--Wodpyp35.7 kg (136 lb)08/04/2025 11:18 AM ZUJHivwhc737 cm (5' 5.75)08/04/2025 11:18 AM CSTBody Mass Index22.12110/04/2024 11:18 AM CSTdocumented in this encounter Patient Instructions * Patient Instructions* Cherelle Khoury MD - 08/04/2025 11:20 AM HOSPICE MANAGER How to Take Your Medication Before Surgery Preoperative Medication Instructions - Herbal medications and vitamins: DO NOT TAKE 14 days prior to surgery. - ibuprofen (Advil, Motrin): DO NOT TAKE 7 days before surgery. - naproxen (Aleve, Naprosyn): DO NOT TAKE 7 days before surgery. - aspirin : DO NOT TAKE for 7 days before surgery. Tylenol only for pain/fever for 7 days prior to surgery. Prior to surgery - Please look at the website [employer] (not a direct link) for exercises for pre surgery exercises to strengthen muscles that support the hip - especially glute muscles . Do these slowly and gently to help before and after your hip replacement surgery. Patient Education Preparing for Your Surgery For Adults Getting started In most cases, a nurse will call to review your health history and instructions. They will give youan arrival time based on your scheduled surgery time. Please be ready to share: Your doctor's clinic name and phone number Your medical, surgical, and anesthesia history A list of allergies and sensitivities A list of medicines, including herbal treatments and qcpn-qhv-amaacki drugs Whether the patient has a legal guardian (ask how to send us the papers in advance) Note: You may not receive a call if you were seen at our PAC (Preoperative Assessment Center). Please tell us if you're --or if there's any chance you might be . Some surgeries may injure a fetus (unborn baby), so they require a test. Surgeries that are safe for a fetus don't always need a test, and you can choose whether to have one. Preparing for surgery Within 10 to 30 days of surgery: Have a pre-op exam (sometimes called an H&P, or History and Physical). This can be done at a clinic or pre-operative center. If you're having a , you may not need this exam. Talk to your care team. At your pre-op exam, talk to your care team about all medicines you take. (This includes CBD oil and any drugs, such as THC, marijuana, and other forms of cannabis.) If you need to stop any medicine before surgery, ask when to start taking it again. This is for your safety. Many medicines and drugs can make you bleed too much during surgery. Some change how well surgery (anesthesia) drugs work. Call your insurance company to let them know you're having surgery. (If you don't have insurance, call [phone].) Call your clinic if there's any change in your health. This includes a scrape or scratch near the surgery site, or any signs of a cold (sore throat, runny nose, cough, rash, fever). Eating and drinking guidelines For your safety: Unless your surgeon tells you otherwise, follow the guidelines below. Eat and drink as normal until 8 hours before you arrive for surgery. After that, no food or milk. You can spit out gum when you arrive. Drink clear liquids until 2 hours before you arrive. These are liquids you can see through, like water, Gatorade, and Propel Water. They also include plain black coffee and tea (no cream or milk). No alcohol for 24 hours before you arrive. The night before surgery, stop any drinks that contain THC. If your care team tells you to take medicine on the morning of surgery, it's okay to take it with asip of water. No other medicines or drugs are allowed (including CBD oil)--follow your care team's instructions. If you have questions the day of surgery, call your hospital or surgery center. Preventing infection Shower or bathe the night before and the morning of surgery. Follow the instructions your clinic gave you. (If no instructions, use regular soap.) Don't shave or clip hair near your surgery site. We'll remove the hair if needed. Don't smoke or vape the morning of surgery. No chewing tobacco for 6 hours before you arrive. A nicotine patch is okay. You may spit out nicotine gum when you arrive. For some surgeries, the surgeon will tell you to fully quit smoking and nicotine. We will make every effort to keep you safe from infection. We will: Clean our hands often with soap and water (or an alcohol-based hand rub). Clean the skin at your surgery site with a special soap that kills germs. Give you a special gown to keep you warm. (Cold raises the risk of infection.) Wear hair covers, masks, gowns, and gloves during surgery. Give antibiotic medicine, if prescribed. Not all surgeries need this medicine. What to bring on the day of surgery Photo ID and insurance card Copy of your health care directive, if you have one Glasses and hearing aids (bring cases) You can't wear contacts during surgery Inhaler and eye drops, if you use them (tell us about these when you arrive) CPAP machine or breathing device, if you use them A few personal items, if spending the night If you have . . . A pacemaker, ICD (cardiac defibrillator), or other implant: Bring the ID card. An implanted stimulator: Bring the remote control. A legal guardian: Bring a copy of the certified (court-stamped) guardianship papers. Please remove any jewelry, including body piercings. Leave jewelry and other valuables at home. If you're going home the day of surgery You must have a support person drive you home. They should stay with you overnight, and they may need to help with your self-care. If you don't have a support person, please tells us as soon as possible. We can help. After surgery If it's hard to control your pain or you need more pain medicine, please call your surgeon's office. Questions? If you have any questions for your care team, list them here: For informational purposes only. Not to replace the advice of your health care provider. Copyright ?? 2018 [facility]. All rights reserved. Clinically reviewed by Alessandro Bernabe MD. [employer] [id number] - REV 11/24. ICE MANAGER ICE MANAGER ICE MANAGER * Attachments The following attachments cannot be sent through Care Everywhere. * Hip Arthritis: Exercises (Montenegrin) * Hip Replacement: Total: General Info (Montenegrin) * Hip Replacement: Before Your Surgery: Video (Montenegrin) * Hip Surgery: Initial Rehab: Exercises (Montenegrin) documented in this encounter Progress Notes * Cherelle Khoury MD - 08/04/2025 11:20 AM CST Images from the original note were not included. Preoperative Evaluation [address] [phone] Primary Provider: Cherelle Khoury MD Pre-op Performing Provider: Cherelle Khoury MD Aug 04, 2025 08/02/2025 Surgical Information What procedure is being done? Right Hip Arthroplasty Facility or Hospital where procedure/surgery will be performed: [facility] Who is doing the procedure / surgery? Dr. Ivan Raphael Date of surgery / procedure: 08/24/25 Time of surgery / procedure: 6:00 AM Where do you plan to recover after surgery? at home with family Patient-reported Fax number for surgical facility: [facility] fax # [phone] Assessment & Plan The proposed surgical procedure is considered INTERMEDIATE risk. ICD-10-CM 1. Preop general physical exam Z01.818 EKG 12-lead complete w/read - Clinics CBC with platelets Comprehensive metabolic panel (BMP + Alb, Alk Phos, ALT, AST, Total. Bili, TP) CBC with platelets Comprehensive metabolic panel (BMP + Alb, Alk Phos, ALT, AST, Total. Bili, TP) 2. Primary osteoarthritis of right hip M16.11 3. Urethral caruncle N36.2 - No identified additional risk factors other than previously addressed Antiplatelet or Anticoagulation Medication Instructions - We reviewed the medication list and the patient is not on an antiplatelet or anticoagulation medications. Additional Medication Instructions - Herbal medications and vitamins: DO NOT TAKE 14 days prior to surgery. - ibuprofen (Advil, Motrin): DO NOT TAKE 7 days before surgery. - naproxen (Aleve, Naprosyn): DO NOT TAKE 7 days before surgery. - aspirin : DO NOT TAKE for 7 days before surgery. Tylenol only for pain/fever for 7 days prior to surgery. Recommendation: Approval given to proceed with proposed procedure, without further diagnostic evaluation. Follow-up : Return in about 9 months (around 04/29/2026) for Wellness/Preventative Visit, w/ Dr. Darby for 40 min appt. Jf Wooten is a 64 year old, presenting for the following: Pre-Op Exam and the following other medical problems: 1. Preop general physical exam 2. Primary osteoarthritis of right hip 08/04/2025 11:11 AM Additional Questions Roomed by Adriana Pearson MA Accompanied by Self Via the Health Maintenance questionnaire, the patient has reported the following services have beencompleted -Mammogram: [facility] 2024-04-24, this information has not been sent to the abstraction team. HPI: pt started to have pain in the right groin/right hip area starting 7 years ago and has become progressively debilitating and is now really limiting her activities and ability to exercise. 09/01/2020: right hip and pelvis xrays: 1. Moderate right hip degenerative arthrosis. Narrowing of the superomedial joint space. Marginal osteophytosis of the acetabulum and femoral head. 2. No fracture or joint malalignment. 3. Mild right sacroiliac degenerative arthrosis. Most recent xrays at orthopedics 04/2025 showed severe osteoarthritis right hip . 08/02/2025 Pre-Op Questionnaire Have you ever had a heart attack or stroke? No Have you ever had surgery on your heart or blood vessels, such as a stent placement, a coronary artery bypass, or surgery on an artery in your head, neck, heart, or legs? No Do you have chest pain with activity? No Do you have a history of heart failure? No Do you currently have a cold, bronchitis or symptoms of other infection? No Do you have a cough, shortness of breath, or wheezing? No Do you or anyone in your family have previous history of blood clots? No Do you or does anyone in your family have a serious bleeding problem such as prolonged bleeding following surgeries or cuts? No Have you ever had problems with anemia or been told to take iron pills? No Have you had any abnormal blood loss such as black, tarry or bloody stools, or abnormal vaginal bleeding? (!) YES Abnormal vaginal bleeding in the past was resolved - back in 2019, now resolved. Have you ever had a blood transfusion? No Are you willing to have a blood transfusion if it is medically needed before, during, or after yoursurgery? Yes Have you or any of your relatives ever had problems with anesthesia? No Do you have sleep apnea, excessive snoring or daytime drowsiness? No Do you have any artifical heart valves or other implanted medical devices like a pacemaker, defibrillator, or continuous glucose monitor? No Do you have artificial joints? No Are you allergic to latex? No Patient-reported Advance Care Planning: Discussed advance care planning with patient; however, patient declined at this time. Preoperative Review of CIRCULATION MAN: CIRCULATION MAN reviewed - no record of controlled substances prescribed. Status of Chronic Conditions: See problem list for active medical problems. Problems all longstanding and stable, except as noted/documented. See ROS for pertinent symptoms related to these conditions. Patient Active Problem List Diagnosis Date Noted Vaginitis and vulvovaginitis --12/2024- recurrent redness and irritated in appearance 05/05/2025 Priority: Medium Fatty liver disease, nonalcoholic 05/05/2025 Priority: Medium Urethral caruncle 05/05/2025 Priority: Medium Inflammation of vaginal introitus - 1 cm raw, irritated area at the introitus - just right lateral of the urethra, also urethral caruncle 05/05/2025 Priority: Medium Asymptomatic menopausal state 05/05/2025 Priority: Medium Thyroid nodule 05/05/2025 Priority: Medium Osteoarthritis of right sacroiliac joint 04/17/2024 Priority: Medium Liver nodule- right posterior 7mm- seen incidentally on CT abd/pelvis 12/23/2023, unchanged on LiverMRI 06/05/2024 04/17/2024 Priority: Medium Elevated glucose- needs A1c follow up 04/17/2024 Priority: Medium Atrophic vaginitis- needs refill on vaginal estrogen tablet 04/17/2024 Priority: Medium Nocturia- gets up 2-3x/night 04/17/2024 Priority: Medium Insomnia secondary to anxiety and stress 04/17/2024 Priority: Medium CARDIOVASCULAR SCREENING; LDL GOAL LESS THAN 130 04/17/2024 Priority: Medium Dry eyes- [facility] 04/11/2023 Priority: Medium Secondary insomnia 11/20/2021 Priority: Medium Nasal vestibulitis 11/20/2021 Priority: Medium Clavicle enlargement- right medial 03/28/2018 Priority: Medium Migraine without aura and without status migrainosus, not intractable- no problems currently 08/03/2016 Priority: Medium Vaginal dryness, menopausal 07/06/2016 Priority: Medium Symptomatic menopausal or female climacteric states- postmenopausal since 201307/06/2016 Priority: Medium Major depressive disorder, recurrent episode, in full remission 03/12/2012 Priority: Medium Family history of macular degeneration- mother 10/26/2011 Priority: Medium FAMILY HX-BREAST MALIG- mother 02/12/2005 Priority: Medium Past Medical History: Diagnosis Date Campylobacter diarrhea 08/2010 needed IVF and Abx - seen in ER in [place] Depressive disorder FAMILY HX-BREAST MALIG- mother Primary osteoarthritis of right hip 09/05/2020 Thyroid nodule 05/05/2025 Unsatisfactory cervical Papanicolaou smear 12/17/20182004, 2011 NIL pap 07/06/16 NIL pap, Neg HPV 01/31/18 NIL pap, Neg HPV 12/17/18 unsatisfactory pap, Neg HPV Past Surgical History: Procedure Laterality Date COLONOSCOPY N/A 04/11/2018 Procedure: COLONOSCOPY; Colonoscopy; Surgeon: Geronimo Shepard MD; Location: GI KNEE SURGERY Left 1989 Patellar realignment surgery. ORTHOPEDIC SURGERY 1989 Patellar realignment surgery. Current Outpatient Medications Medication Sig Dispense Refill [...] body as needed 30 g 3 Allergies[1] Social History Tobacco Use Smoking status: Former Current packs/day: 0.00 Types: Cigarettes Quit date: 02/12/1983 Years since quittin.5 Passive exposure: Past Smokeless tobacco: Never Tobacco comments: smoked for just a couple of years Substance Use Topics Alcohol use: Yes Comment: Occasionally Family History Problem Relation Age of Onset Breast Cancer Mother Cerebrovascular Disease Mother from stroke at age 80 Diabetes Mother Hypertension Mother Psychotic Disorder Father commited suicide age 53 No Known Problems Brother Psychotic Disorder Paternal Grandmother committed suicide in her late 50's Blood Disease Maternal Uncle survived leukemia ? Chronic Lymphocytic leukemia Blood Disease Paternal Uncle primary bone cancer - Breast Cancer Maternal Cousin Breast Cancer Other Colon Cancer No family hx of Bleeding Disorder No family hx of Clotting Disorder No family hx of Anesthesia Reaction No family hx of History Drug Use Unknown Comment: no herbal meds either Review of Systems Constitutional, HEENT, cardiovascular, pulmonary, GI, , musculoskeletal, neuro, skin, endocrine and psych systems are negative, except as otherwise noted. Objective : BP 112/72 Pulse 84 Temp 97.9 ??F (36.6 ??C) (Tympanic) Resp 16 Ht 1.67 m (5' 5.75) Wt 61.7 kg (136 lb) LMP 01/31/2012 SpO2 99% BMI 22.12 kg/m?? Estimated body mass index is 22.12 kg/m?? as calculated from the following: Height as of this encounter: 1.67 m (5' 5.75). Weight as of this encounter: 61.7 kg (136 lb). Physical Exam: GENERAL: alert and no distress. EYES: Eyes grossly normal to inspection, PERRL and conjunctivae and sclerae normal HENT: ear canals and TM's normal, nose and mouth without ulcers or lesions NECK: no adenopathy, no asymmetry, masses, or scars RESP: lungs clear to auscultation - no rales, rhonchi or wheezes CV: regular rate and rhythm, normal S1 S2, no S3 or S4, no murmur, click or rub, no peripheral edema ABDOMEN: soft, nontender, no hepatosplenomegaly, no masses and bowel sounds normal MS: no gross musculoskeletal defects noted, no edema SKIN: no suspicious lesions or rashes NEURO: Normal strength and tone, mentation intact and speech normal PSYCH: mentation appears normal, affect normal/bright Recent Labs Lab Test 04/26/25 1529 HGB 14.4 PLT 212 NA 138 POTASSIUM 4.0 CR 0.81 A1C 5.2 Diagnostics: Labs pending at this time. Results will be reviewed when available. EKG: appears normal, NSR, normal axis, normal intervals, no acute ST/T changes c/w ischemia, no LVHby voltage criteria, there are no prior tracings available Revised Cardiac Risk Index (RCRI): The patient has the following serious cardiovascular risks for perioperative complications: - No serious cardiac risks = 0 points RCRI Interpretation: 0 points: Class I (very low risk - 0.4% complication rate) Signed Electronically by: Cherelle Khoury MD A copy of this evaluation report is provided to the requesting physician. [1] Allergies Allergen Reactions Amoxicillin Rash ICE MANAGER documented in this encounter Plan of Treatment DateTypeDepartmentCare Team (Latest Contact Info)Bdypompwpgj59/31/2026 8:40 AM CDTOffice Visit [address] [phone] Cherelle Khoury MD [address] [place] [phone] documented as of this encounter Procedures Procedure NamePriorityDate/TimeAssociated DiagnosisCommentsCOMPREHENSIVE METABOLIC FUPBUUhrcpkk01/05/2025 12:47 PM HOSPICE MANAGER Preop general physical exam CBC WITH JPNPAXESIZkfnxna80/05/2025 12:47 PM HOSPICE MANAGER Preop general physical exam EKG 12-LEAD COMPLETE W/READ - EXOJUNAWwzgoml98/05/2025 Preop general physical exam documented in this encounter Results * Comprehensive metabolic panel (BMP + Alb, Alk Phos, ALT, AST, Total. Bili, TP) (08/04/2025 12:47 PMCST)ComponentValueRef RangeTest MethodAnalysis Time Performed AtPathologist EwthzrgpkNrrakf365250 - 145 mmol/L110/05/2024 2:45 AM CSTUU LABORATORYPotassium4.13.4 - 5.3 mmol/L110/05/2024 2:45 AM CSTUU LABORATORYCarbon Dioxide (CO2)2722 - 29 mmol/L110/05/2024 2:45 AM CSTUU LABORATORYAnion Rra629 - 15 mmol/L110/05/2024 2:45 AM CSTUU LABORATORYUrea Zobovhmy20.88.0 - 23.0 mg/dL08/05/2025 2:45 AM CSTUU LABORATORYCreatinine0.79 0.51 - 0.95 mg/dL08/05/2025 2:45 AM CSTUU LABORATORYGFR Wjhphyer89>60 mL/min/1.49f22608/05/2025 2:45 AM CSTUU LABORATORYComment:eGFR calculated using 2020 CKD-EPI equation.Calcium9.88.8 - 10.4 mg/dL08/05/2025 2:45 AM CSTUU YTJILZVBXVTacbmbzp74969 - 107 mmol/L110/05/2024 2:45 AM CSTUU LABORATORYGlucose 9070 - 99 mg/dL08/05/2025 2:45 AM CSTUU LABORATORYAlkaline Cgnybcxadqt2279 - 150 U/L110/05/2024 2:45 AM CSTUU HOKTEKPUUPSBO037 - 45 U/L110/05/2024 2:45 AM CSTUU SHAGGADWEQYHE142 - 50 U/L110/05/2024 2:45 AM CSTUU LABORATORYProtein Total7.46.4 - 8.3 g/dL08/05/2025 2:45 AM CSTUU LABORATORYAlbumin4.43.5 - 5.2 g/dL08/05/2025 2:45 AM CSTUU LABORATORYBilirubin Total0.4<=1.2 mg/dL08/05/2025 2:45 AM CSTUU LABORATORYSpecimen (Source)Anatomical Location / Laterality Collection Method / VolumeCollection TimeReceived TimeBloodBLOOD SPECIMEN / UnknownVenipuncture / Ovjpzzm8008/04/2025 12:47 PM CST08/04/2025 12:47 PM HOSPICE MANAGER Narrative Authorizing ProviderResult TypeResult StatusCherelle GANDHI - BLOOD ORDERABLESFinal ResultPerforming OrganizationAddressCity/State/ZIP CodePhone Number [facility] [address] [facility] [address] Building, Room [address] [place] [phone], [facility] * CBC with platelets (08/04/2025 12:47 PM HOSPICE MANAGER)ComponentValueRef RangeTest Method Analysis TimePerformed AtPathologist SignatureWBC Count4.974.00 - 11.00 10e3/uL08/04/2025 12:49 PM CSTRV LABORATORYRBC Count4.953.80 - 5.20 10e6/uL 08/04/2025 12:49 PM CSTRV INMZFPYFRUOftqhbuxuy16.111.7 - 15.7 g/dL08/04/2025 12:49 PM CSTRV CZOLVGRIQPFpaawnrvuz43.235.0 - 47.0 %08/04/2025 12:49 PM CSTRV ZZJSTJZTYZXJD03.378.0 - 100.0 fL08/04/2025 12:49 PM CSTRV IDAPCXCIBBONB92.5 26.5 - 33.0 pg08/04/2025 12:49 PM CSTRV BAMYCZMOXDAQGO05.231.5 - 36.5 g/dL 08/04/2025 12:49 PM CSTRV PUZZIYVANMOFV39.110.0 - 15.0 %08/04/2025 12:49 PM CSTRV LABORATORYPlatelet Mefna515148 - 450 10e3/uL08/04/2025 12:49 PM CSTRV LABORATORYSpecimen (Source)Anatomical Location / LateralityCollection Method / VolumeCollection TimeReceived TimeBloodBLOOD SPECIMEN / UnknownVenipuncture / Vbpcdkb9908/04/2025 12:47 PM CST08/04/2025 12:47 PM HOSPICE MANAGER Narrative Authorizing ProviderResult TypeResult StatusCherelle GANDHI - BLOOD ORDERABLESFinal ResultPerforming OrganizationAddressCity/State/ZIP CodePhone Number LABORATORY [facility] [address] [place] [address] Lab (no room number, 1st floor of clinic) [place] [address], [facility] * EKG 12-lead complete w/read - Clinics (08/04/2025) Narrative Authorizing ProviderResult TypeResult StatusJedorinda Khoury MDECG ORDERABLESFinal Result documented in this encounter Visit Diagnoses Diagnosis Preop general physical exam- Primary Other specified pre-operative examination Primary osteoarthritis of right hip Primary localized osteoarthrosis, pelvic region and thigh Urethral caruncle documented in this encounter Additional Health Concerns AssessmentNoted TimePHQ-9 Depression Total Score: 1:40 PM CDT documented as of this encounter Care Teams Team MemberRelationshipSpecialtyStart DateEnd Date Cherelle Khoury MD [address] [place] [phone] PCP - GeneralFamily Practice10/26/11 Tiffanie De La Paz MD [address] [place] [address] 43669 MDDermatology03/13/24 Cherelle Khoury MD [address] [place] [address] 13200 Assigned PCP05/22/24 Tiffanie De La Paz MD [address] [place] [address] 41711 Assigned Dermatology Provider12/20/24 Simran Lam MD [address] [id number] PhysicianOB/Gyn05/05/25 Simran Lam MD [address] [id number] Assigned OBBOONEN Provider05/22/25documented as of this encounter
--- OUTSIDE RECORDS SUMMARY | 2025-08-04 11:20 | XMS_ITS | Encounter Summary ---
Author Organization [facility] Address [address] [place] [address] Care Team Providers Care Distribution Manager Name Role Phone Cherelle Khoury MD Primary Care Provider Tiffanie De La Paz MD Unavailable [phone] Cherelle Khoury MD Unavailable [phone] Tiffanie De La Paz MD Unavailable [phone] Simran Lam MD Unavailable [phone] Simran Lam MD Unavailable [phone] Reason for Visit * ReasonCommentsPre-Op Exam Encounter Details DateTypeDepartmentCare Team (Latest Contact Info)Ehwuiahtlbt71/05/2025 11:20 AM CSTOffice Visit M [address] [place] [phone] Cherelle Khoury MD [address] [place] [address] Preop general physical exam (Primary Dx); Primary osteoarthritis of right hip; Urethral caruncle Social History Tobacco UseTypesPacks/DayYears UsedDateSmoking Tobacco: QguizoHrmfcctzce2Azku: 02/12/1983Passive Smoke Exposure: PastSmokeless Tobacco: Never Comments:smoked for just a c ouple of years Alcohol UseStandard Drinks/WeekCommentsYes0 (1 standard drink = 0.6 oz pure alcohol)OccasionallySocial Connection and Isolation PanelAnswerDate Recorded Frequency of Communication with Friends and FamilyNot on file04/21/2025How often do you get together with friends or relatives?Once a week04/21/2025ttends Sabianist ServicesNot on file04/21/2025tive Member of Clubs or Organizations Not on file04/21/2025ttends Club or Organization MeetingsNot on file04/21/2025 Marital StatusNot on file04/21/2025PHQ-2AnswerDate RecordedPHQ-2 Score0 04/26/2025[facility] [place] [facility] - Occupational Stress QuestionnaireAnswerDate RecordedDo you feel stress - tense, restless, nervous, or anxious, or unable to sleep at night because yourmind is troubled all the time - these days?To some ijigoi3004/21/2025Exercise Vital SignAnswerDate Recorded On average, how many [...] in an abandoned building, in an overnight chcf, or couch-surfing.)Yes04/21/2025re you worried about losing your [...] ex-partner?No04/26/2025CommentsNoSex and Gender InformationValueDate RecordedSex Assigned at NznbaJystrx51/16/2020 11:11 AM CDTLegal AwsXpzstu48/04/2012 4:18 AM CSTGender QllzeyedQytagd48/16/2020 11:11 AM CDTSexual OrientationNot on fileOccupationIndustryJob Start DateJob End Date stay at home momNot on fileNot on fileNot on filecoderNot on fileNot on fileNot on filedocumented as of this encounter Last Filed Vital Signs Vital SignReadingTime TakenCommentsBlood Zytwescq092/7208/04/2025 11:18 AM ENVELOPE MAKER Lersz663608/04/2025 11:18 AM MVWKpbszmzxxnt28.6 ??C (97.9 ??F)08/04/2025 11:18 AM CSTRespiratory Fvqf779910/04/2024 11:18 AM CSTOxygen Fuefdtwhwz54%08/04/2025 11:18 AM CSTInhaled Oxygen Concentration--Nebqfz28.7 kg (136 lb)08/04/2025 11:18 AM ANSQugfdw231 cm (5' 5.75)08/04/2025 11:18 AM CSTBody Mass Index22.12110/04/2024 11:18 AM CSTdocumented in this encounter Patient Instructions * Patient Instructions* Cherelle Khoury MD - 08/04/2025 11:20 AM ENVELOPE MAKER How to Take Your Medication Before Surgery [...] surgery - Please look at the website [email or web address] (not a direct link) for exercises for [...] list of medicines, including herbal treatments and yqip-ace-jkukzol drugs Whether the patient has a legal [...] surgery. (If you don't have insurance, call [phone].) Call your clinic if there's any change [...] your health care provider. Copyright ?? 2018 [facility]. All rights reserved. Clinically reviewed by Alessandro Bernabe MD. [employer] [id number] - REV 11/24. LOPE MAKER LOPE MAKER LOPE MAKER * Attachments The following attachments cannot be sent through Care Everywhere. * Hip Arthritis: Exercises (Angolan) * Hip Replacement: Total: General Info (Angolan) * Hip Replacement: Before Your Surgery: Video (Angolan) * Hip Surgery: Initial Rehab: Exercises (Angolan) documented in this encounter Progress Notes * Cherelle Khoury MD - 08/04/2025 11:20 AM CST Images from the original note were not included. Preoperative Evaluation [address] [address] Primary Provider: Cherelle Khoury MD Pre-op Performing Provider: Cherelle Khoury MD Aug 04, 2025 08/02/2025 Surgical Information What procedure is being done? Right Hip Arthroplasty Facility or Hospital where procedure/surgery will be performed: [facility] Who is doing the procedure / surgery? Dr. Ivan Raphael Date of surgery / procedure: 08/24/25 Time of surgery / procedure: 6:00 AM Where do you plan to recover after surgery? at home with family Patient-reported Fax number for surgical facility: [facility] fax # [phone] Assessment & Plan The proposed surgical procedure [...] reported the following services have beencompleted -Mammogram: [facility] 2024-04-24, this information has not been sent [...] declined at this time. Preoperative Review of CONTACT AND SERVICE CLERKS SUPERVISOR: CONTACT AND SERVICE CLERKS SUPERVISOR reviewed - no record of controlled substances [...] and Abx - seen in ER in [place] Depressive disorder FAMILY HX-BREAST MALIG- mother Primary [...] physician. [1] Allergies Allergen Reactions Amoxicillin Rash LOPE MAKER documented in this encounter Plan of Treatment DateTypeDepartmentCare Team (Latest Contact Info)Qfopbsdmbcc82/31/2026 8:40 AM CDTOffice Visit [address] [phone] Cherelle Khoury MD [address] [place] [address] 156262 documented as of this encounter Procedures Procedure NamePriorityDate/TimeAssociated DiagnosisCommentsCOMPREHENSIVE METABOLIC TMRWIPqhiqsw39/05/2025 12:47 PM ENVELOPE MAKER Preop general physical exam CBC WITH SOBZZTYAZIvvdprf46/05/2025 12:47 PM ENVELOPE MAKER Preop general physical exam EKG 12-LEAD COMPLETE W/READ - PXYVGGSPtkjdxx05/05/2025 Preop general physical exam documented in this encounter Results * Comprehensive metabolic panel (BMP + Alb, Alk Phos, ALT, AST, Total. Bili, TP) (08/04/2025 12:47 PMCST)ComponentValueRef RangeTest MethodAnalysis Time Performed AtPathologist CaozhjbzsLqggic116473 - 145 mmol/L110/05/2024 2:45 AM CSTUU LABORATORYPotassium4.13.4 - 5.3 mmol/L110/05/2024 2:45 AM CSTUU LABORATORYCarbon Dioxide (CO2)2722 - 29 mmol/L110/05/2024 2:45 AM CSTUU LABORATORYAnion Fan703 - 15 mmol/L110/05/2024 2:45 AM CSTUU LABORATORYUrea Sywjmjxh82.88.0 - 23.0 mg/dL08/05/2025 2:45 AM CSTUU LABORATORYCreatinine0.79 0.51 - 0.95 mg/dL08/05/2025 2:45 AM CSTUU LABORATORYGFR Hmutztxp52>60 mL/min/1.87h42908/05/2025 2:45 AM CSTUU LABORATORYComment:eGFR calculated using 2020 CKD-EPI equation.Calcium9.88.8 - 10.4 mg/dL08/05/2025 2:45 AM CSTUU LTOUMAPJAHXiqgrkfn00862 - 107 mmol/L110/05/2024 2:45 AM CSTUU LABORATORYGlucose 9070 - 99 mg/dL08/05/2025 2:45 AM CSTUU LABORATORYAlkaline Mdubjwctera0744 - 150 U/L110/05/2024 2:45 AM CSTUU KHRFTGABSLAWY482 - 45 U/L110/05/2024 2:45 AM CSTUU YRYQYVOABPFIE943 - 50 U/L110/05/2024 2:45 AM CSTUU LABORATORYProtein Total7.46.4 - 8.3 g/dL08/05/2025 2:45 AM CSTUU LABORATORYAlbumin4.43.5 - 5.2 g/dL08/05/2025 2:45 AM CSTUU LABORATORYBilirubin Total0.4<=1.2 mg/dL08/05/2025 2:45 AM CSTUU LABORATORYSpecimen (Source)Anatomical Location / Laterality Collection Method / VolumeCollection TimeReceived TimeBloodBLOOD SPECIMEN / UnknownVenipuncture / Nwypphn7508/04/2025 12:47 PM CST08/04/2025 12:47 PM ENVELOPE MAKER Narrative Authorizing ProviderResult TypeResult StatusCherelle GANDHI - BLOOD ORDERABLESFinal ResultPerforming OrganizationAddressCity/State/ZIP CodePhone Number [facility] [address] [facility] Building, Room [address] [place] [phone], [facility] * CBC with platelets (08/04/2025 12:47 PM ENVELOPE MAKER)ComponentValueRef RangeTest Method Analysis TimePerformed AtPathologist SignatureWBC Count4.974.00 - 11.00 10e3/uL08/04/2025 12:49 PM CSTRV LABORATORYRBC Count4.953.80 - 5.20 10e6/uL 08/04/2025 12:49 PM CSTRV VUWZVQDQDTAjkyxmkjvt94.111.7 - 15.7 g/dL08/04/2025 12:49 PM CSTRV MKKMGREANCFjlciklecm57.235.0 - 47.0 %08/04/2025 12:49 PM CSTRV NGXKMAAWKQTSV88.378.0 - 100.0 fL08/04/2025 12:49 PM CSTRV RFSVONWMMNYKO84.5 26.5 - 33.0 pg08/04/2025 12:49 PM CSTRV TLTGVMVAWEEFTG27.231.5 - 36.5 g/dL 08/04/2025 12:49 PM CSTRV NRKUOLJOFLXGY26.110.0 - 15.0 %08/04/2025 12:49 PM CSTRV LABORATORYPlatelet Phwjf586619 - 450 10e3/uL08/04/2025 12:49 PM CSTRV LABORATORYSpecimen (Source)Anatomical Location / LateralityCollection Method / VolumeCollection TimeReceived TimeBloodBLOOD SPECIMEN / UnknownVenipuncture / Xozvnvr2208/04/2025 12:47 PM CST08/04/2025 12:47 PM ENVELOPE MAKER Narrative Authorizing ProviderResult TypeResult StatusCherelle GANDHI - BLOOD ORDERABLESFinal ResultPerforming OrganizationAddressCity/State/ZIP CodePhone Number LABORATORY [facility] [place] [facility] [address] [place] [address] Lab (no room number, 1st floor of clinic) [place] [address], [facility] * EKG 12-lead complete w/read - Clinics [...] Team MemberRelationshipSpecialtyStart DateEnd Date Cherelle Khoury MD [address] [place] [address] PCP - GeneralFamily Practice10/26/11 Tiffanie De La Paz MD [address] [place] [address] 11672 MDDermatology03/13/24 Cherelle Khoury MD [address] [place] [address] Assigned PCP05/22/24 Tiffanie De La Paz MD [address] [place] [address] 14832 Assigned Dermatology Provider12/20/24 Simran Lam MD [address] [phone] PhysicianOB/Gyn05/05/25 Simran Lam MD [address] [phone] Assigned OBBOONEN Provider05/22/25documented as of this encounter
--- OUTSIDE RECORDS SUMMARY | 2025-09-17 23:15 | XMS_ITS | Encounter Summary ---
Author Organization [place] Address [address] [place] [id number] Care Team Providers Care Operational Review Sergeant Name Role Phone Cherelle Khoury MD Primary Care Provider Tiffanie De La Paz MD Unavailable [phone] Cherelle Khoury MD Unavailable [phone] Tiffanie De La Paz MD Unavailable [phone] Simran Lam MD Unavailable [phone] Simran Lam MD Unavailable [phone] Encounter Details DateTypeDepartmentCare Team (Latest Contact Info)Joyejrvbaqk73/05/2025Results Follow-Up [address] [phone] Cherelle Khoury MD [address] [place] [phone] Subj: Message about your results Social History Tobacco UseTypesPacks/DayYears UsedDateSmoking Tobacco: AmqtfuJvdzwjsdjo2Jgva: 02/12/1983Passive Smoke Exposure: PastSmokeless Tobacco: Never Comments:smoked for just a c ouple of years Alcohol UseStandard Drinks/WeekCommentsYes0 (1 standard drink = 0.6 oz pure alcohol)OccasionallySocial Connection and Isolation PanelAnswerDate Recorded Frequency of Communication with Friends and FamilyNot on file04/21/2025How often do you get together with friends or relatives?Once a week04/21/2025ttends Worship ServicesNot on file04/21/2025tive Member of Clubs or Organizations Not on file04/21/2025ttends Club or Organization MeetingsNot on file04/21/2025 Marital StatusNot on file04/21/2025PHQ-2AnswerDate RecordedPHQ-2 Score0 04/26/2025[facility] - Occupational Stress QuestionnaireAnswerDate RecordedDo you feel stress - tense, restless, nervous, or anxious, or unable to sleep at night because yourmind is troubled all the time - these days?To some yzngju0204/21/2025Exercise Vital SignAnswerDate Recorded On average, how many [...] ex-partner?No04/26/2025CommentsNoSex and Gender InformationValueDate RecordedSex Assigned at BikubAcovzs13/16/2020 11:11 AM CDTLegal OezZixcre02/04/2012 4:18 AM CSTGender OqxdlxnoUlaulw34/16/2020 11:11 AM CDTSexual OrientationNot on fileOccupationIndustryJob Start DateJob End Date stay at home momNot on fileNot on fileNot on filecoderNot on fileNot on fileNot on filedocumented as of this encounter Plan of Treatment DateTypeDepartmentCare Team (Latest Contact Info)Kpyzwcbjvll62/31/2026 8:40 AM CDTOffice Visit [address] [phone] Cherelle Khoury MD [address] [place] [phone] documented as of this encounter Visit Diagnoses Not on filedocumented in this encounter Additional Health Concerns AssessmentNoted TimePHQ-9 Depression Total Score: 1:40 PM CDT documented as of this encounter Care Teams Team MemberRelationshipSpecialtyStart DateEnd Date Cherelle Khoury MD [address] [place] [phone] PCP - GeneralFamily Practice10/26/11 Tiffanie De La Paz MD [address] [place] [address] MDDermatology03/13/24 [place] [address] [place] [phone] Assigned PCP05/22/24 Tiffanie De La Paz MD [address] [place] [address] Assigned Dermatology Provider12/20/24 Simran Lam MD [address] [address] PhysicianOB/Gyn05/05/25 Simran Lam MD [address] [address] Assigned OBGYN Provider05/22/25documented as of this encounter
--- OUTSIDE RECORDS SUMMARY | 2025-09-17 23:15 | XMS_ITS | Clinical Summary ---
Author Organization [facility] Address [address] [place] [address] Care Team Providers Care Sheet Finisher Name Role Phone Cherelle Khouyr MD Primary Care Provider Tiffanie De La Paz MD Unavailable [phone] Cherelle Khoury MD Unavailable [phone] Tiffanie De La Paz MD Unavailable [phone] Simran Lam MD Unavailable [phone] Simran Lam MD Unavailable [phone] Allergies Active AllergyReactionsCriticalityNoted EjjgNzdaqblbAntkcqyavqdThxtHyt41/25/2003 Medications MedicationSigDispense QuantityRefillsLast FilledStart DateEnd DateStatus estradiol (YUVAFEM) 10 MCG TABS vaginal tablet Indications:Atrophic vaginitisPlace 1 tablet (10 mcg) vaginally twice a week 24 tablet 4Active mupirocin (BACTROBAN) 2 % external ointment Indications:Nasal vestibulitisApply topically 3 times daily. To nares until clear 22 g 5Active triamcinolone (KENALOG) 0.1 % external cream Indications:Intrinsic atopic dermatitisApply topically 2 times daily. To eczema rash on body as needed 30 g 5Active estradiol (ESTRACE) 0.1 MG/GM vaginal cream Indications:Urethral caruncle,Atrophic vaginitisPlace 1 g vaginally twice a week. Pea size amount on tip of finger vaginally, daily for 2 weeks, then twice weekly 42.5 g tive Active Problems ProblemNoted DateDiagnosed DateVaginitis and vulvovaginitis --12/2024- recurrent redness and irritated in vasbnywnfu82/06/2025Fatty liver disease, nonalcoholic 05/05/2025Urethral dzoshocy27/06/2025Inflammation of vaginal introitus - 1 cm raw, irritated area at the introitus - just right lateral of the urethra, also urethral oqwowtaf00/06/2025symptomatic menopausal state05/05/2025Thyroid nodule 05/05/2025Osteoarthritis of right sacroiliac joint04/17/2024Liver nodule- right posterior 7mm- seen incidentally on CT abd/pelvis 12/23/2023, unchanged on Liver MRI Elevated glucose- needs A1c follow up04/17/2024trophic vaginitis- needs refill on vaginal estrogen dhscol3604/17/2024Nocturia- gets up 2-3x/night04/17/2024Insomnia secondary to anxiety and gonway5604/17/2024 CARDIOVASCULAR SCREENING; LDL GOAL LESS THAN 8236104/17/2024ry eyes- [facility]04/11/2023Secondary lzzyfqlh77/21/2022Nasal hfmqefdtwxld48/21/2022lavicle enlargement- right xnyvla3803/28/2018Migraine without aura and without status migrainosus, not intractable- no problems oeduyjepj33/04/2016Vaginal dryness, gwjrjicdmu81/07/2016Symptomatic menopausal or female climacteric states- postmenopausal since Major depressive disorder, recurrent episode, in full neydhpjqw08/13/2012Family history of macular degeneration- mother 10/26/2011FAMILY HX-BREAST MALIG- uoqniu3202/12/2005 Resolved Problems ProblemNoted DateDiagnosed DateResolved DateHip pain, right/04/2024 Primary osteoarthritis of right hipMenopause12/03/2020 07/13/2023Unsatisfactory cervical Papanicolaou smear Overview (09/08/2020): 2011 NIL pap 07/06/16 NIL pap, Neg HPV 01/31/18 NIL pap, Neg HPV 12/17/18 unsatisfactory pap, Neg HPV. Plan: repeat pap in February 2019 04/13/19 Repeat pap not done, chart and tracking updated for 6 month pap. 08/03/19 Patient is lost to pap tracking follow-up. 09/01/20: NIL Pap, Neg HR HPV. Plan routine screening. Vitamin D deficiency- needs level checked today3Atrophic pycmekuwo003Postmenopausal gxeduuke52 CARDIOVASCULAR SCREENING; LDL GOAL LESS THAN 98177 Encounters DateTypeDepartmentCare LmqeIotyvjuczqg24/05/2025 11:20 AM CSTOffice Visit [address] [phone] Cherelle Khoury MD Preop general physical exam (Primary Dx); Primary osteoarthritis of right hip; Urethral zlfkwqip16/05/2025Results Follow-Up [address] [phone] Cherelle Khoury MD Subj: Message about your ttghzzw2108/04/20258130Humlfm39/03/3485Ujzasx86/29/2025 2:20 PM CDTOffice Visit [address] [phone] Cherelle Khoury MD Cat bite of lower leg, right, initial encounter (Primary Dx)07/28/2025Travel 06/23/2025 10:00 AM CDTOffice Visit [facility] [address] [place] [address] Simran Lam MD Urethral caruncle (Primary Dx); Urethral meatus pain; Vulvar pain06/23/2025Travelfrom Last 3 Months Immunizations ImmunizationAdministration DatesNext DueCOVID-19 Bivalent 12+ (Pfizer)07/31/2024 COVID-19 MONOVALENT 12+ (Pfizer)10/11/2020,09/21/2020Influenza (IIV3) PF 08/24/2003Influenza Vaccine >6 months,quad, PF07/12/2023,07/07/2022,07/14/2021, 07/16/2019,07/25/2018,07/31/2017,07/04/2016Influenza Vaccine Trivalent (FluBlok) 07/31/2024Influenza Vaccine, 6+MO IM (QUADRIVALENT W/PRESERVATIVES)07/02/2020 Influenza, Split Virus, Trivalent, Pf (Fluzone\Fluarix)07/30/2025MMR (MMRII) 04/26/2025Pneumococcal 20 valent Conjugate (Prevnar 20)04/26/2025TD,PF 7+ (Tenivac)09/15/1998TDAP (Adacel,Boostrix)10/20/2021TDAP Vaccine (Boostrix) 10/26/2011Zoster recombinant adjuvanted (Shingrix)03/05/2025,11/06/2024 Family History Medical HistoryRelationCommentsNo Known ProblemsBrotherPsychotic DisorderFather commited suicide age 53Breast CancerMaternal CousinBlood DiseaseMaternal Uncle survived leukemia ? Chronic Lymphocytic leukemiaBreast CancerMother Cerebrovascular DiseaseMotherdied from stroke at age 80DiabetesMother HypertensionMotherBreast CancerOtherPsychotic DisorderPaternal Grandmother committed suicide in her late 50'sBlood DiseasePaternal Uncleprimary bone cancer - diedAnesthesia ReactionNo family hx ofBleeding DisorderNo family hx ofClotting DisorderNo family hx ofColon CancerNo family hx ofRelationStatusCommentsBrother AliveFatherDeceasedMaternal CousinAliveMaternal GrandfatherDeceasedMaternal GrandmotherDeceasedMaternal UncleMotherDeceasedOtherPaternal GrandfatherDeceased Paternal GrandmotherDeceasedPaternal Uncle Social History Tobacco UseTypesPacks/DayYears UsedDateSmoking Tobacco: WdcdlrKtcylfsepu1Yenq: 02/12/1983Passive Smoke Exposure: PastSmokeless Tobacco: Never Tobacco Cessation:Counseling Given: Not Answered Comments:smoked for just a couple of years Alcohol UseStandard Drinks/WeekCommentsYes0 (1 standard drink = 0.6 oz pure alcohol)OccasionallySocial Connection and Isolation PanelAnswerDate Recorded Frequency of Communication with Friends and FamilyNot on file04/21/2025How often do you get together with friends or relatives?Once a week04/21/2025ttends Roman Catholic ServicesNot on file04/21/2025tive Member of Clubs or Organizations Not on file04/21/2025ttends Club or Organization MeetingsNot on file04/21/2025 Marital StatusNot on 04/21/2025PHQ-2AnswerDate RecordedPHQ-2 Score0 04/26/2025[facility] [place] [facility] - Occupational Stress QuestionnaireAnswerDate RecordedDo you feel stress - tense, restless, nervous, or anxious, or unable to sleep at night because yourmind is troubled all the time - these days?To some otawas9604/21/2025Exercise Vital SignAnswerDate Recorded On average, how many [...] in an abandoned building, in an overnight assisted, or couch-surfing.)Yes04/21/2025re you worried about losing your [...] ex-partner?No04/26/2025CommentsNoSex and Gender InformationValueDate RecordedSex Assigned at XaebuQifhdz65/16/2020 11:11 AM CDTLegal ZxxItpkdi66/04/2012 4:18 AM CSTGender KfrtbpeuSmmcyu81/16/2020 11:11 AM CDTSexual OrientationNot on fileOccupationIndustryJob Start DateJob End Date stay at home momNot on fileNot on fileNot on filecoderNot on fileNot on fileNot on file Last Filed Vital Signs Vital SignReadingTime TakenCommentsBlood Jbkccdee193/7211 11:18 AM SUPPLIER QUALITY ENGINEERING MANAGER Xbvzn336708/04/2025 11:18 AM YCTGtumltmobjf93.6 ??C (97.9 ??F)08/04/2025 11:18 AM CSTRespiratory Wcbu244810/04/2024 11:18 AM CSTOxygen Ydlabcnuja37%08/04/2025 11:18 AM CSTInhaled Oxygen Concentration--Gzfpow64.7 kg (136 lb)08/04/2025 11:18 AM ECSXfjlnv336 cm (5' 5.75)08/04/2025 11:18 AM CSTBody Mass Index22.1211/01/2025 11:18 AM SUPPLIER QUALITY ENGINEERING MANAGER Plan of Treatment DateTypeDepartmentCare Team (Latest Contact Info)Kkdeltowtka31/31/2026 8:40 AM CDTOffice Visit M [address] [phone] [place] [address] [place] [phone] Health MaintenanceDue DateLast DoneCommentsCT IIIZXJOVDWQM1962FLEX SIG 1960DNA (Cologuard)1962FITMAMMO SCREENING 5004/24/2024, 03/16/2022, 07/20/2016, Additional history existsPHQ-9 , 04/17/2024, 04/11/2023, Additional history existsHPV TEST , 09/01/2020, 12/17/2018, Additional history existsPAP , 09/01/2020, 12/17/2018, Additional history existsANNUAL REVIEW OF HM WFGDPS90, 04/17/2024, 04/11/2023, Additional history existsYEARLY PREVENTIVE VISIT, 04/11/2023, 10/20/2021, Additional history drceeeITXMGTYXSZG23, 04/11/2018 COLORECTAL CANCER SZWMWPWXM75/13/2028DIABETES IQIDHBMUK94, 04/26/2025, 04/26/2025, Additional history euxzcsJGFYO55, 04/17/2024, 04/11/2023, Additional history existsADVANCE CARE OOSGJJQC91/05/2030 08/04/2025, 04/17/2024, 04/29/2023, Additional history existsDTAP/TDAP/TD VACCINE (3 - Td or Tdap)/, 10/26/2011, 09/15/1998RSV VACCINE (1 - 1-dose 75+ series)2037HEPATITIS C HFHOYCMZGWvybuqahl69/27/2012HIV BWAWGSSDAIykomosth70/27/2012DEPRESSION ACTION AAXMEvqoxpebd83/03/2020 (Not Needed)Overridden with the intention of not completing the topicZOSTER VACCINE Stbwfhxcc88/06/2025, 11/06/2024PNEUMOCOCCAL VACCINE 50+ CKTJWOuxzvhrfc80/28/2025 COVID-19 QORPNCCTylhbnlln12/31/2025, 07/31/2024, 07/12/2023, Additional history existsINFLUENZA PNVJHRXXwvhupvvr01/31/2025, 07/31/2024, 07/12/2023, Additional history existsHPV VACCINE (No Doses Required)CompletedMENINGITIS VACCINEAged Out No longer eligible based on patient's age to complete this topic Procedures Procedure NamePriorityDate/TimeAssociated DiagnosisCommentsCOMPREHENSIVE METABOLIC EETPUFbjywtj85/05/2025 12:47 PM SUPPLIER QUALITY ENGINEERING MANAGER Preop general physical exam CBC WITH DOHOJHJGNEaeytor55/05/2025 12:47 PM SUPPLIER QUALITY ENGINEERING MANAGER Preop general physical exam EKG 12-LEAD COMPLETE W/READ - OJPRAJHJmbglfu34/05/2025 Preop general physical exam LIPID REFLEX TO DIRECT LDL WZNPHYnacjpi71/28/2025 3:29 PM CDT CARDIOVASCULAR SCREENING; LDL GOAL LESS THAN 130 MA SCREENING BILATERAL W/ ZRICKqpazdx66/26/2024 10:30 AM CDT Visit for screening mammogram GYNECOLOGIC JBXWHFLFUoeegdw52/13/2023 1:40 PM CDT Cervical cancer screening HPV HIGH RISK TYPES DNA NBWXLZEXCidhuly63/13/2023 1:40 PM CDT Cervical cancer screening FVFYVNCNYMJQmuvclr00/13/2018 8:16 AM CDT FECAL COLORECTAL CANCER SCREEN JVTSvjydjd88/31/2012 9:00 AM SUPPLIER QUALITY ENGINEERING MANAGER Special screening for malignant neoplasms, colon HEPATITIS C AOUSVLQDDwovwzo54/27/2012 3:09 PM SUPPLIER QUALITY ENGINEERING MANAGER Counseling on sexually transmitted disease- had affair HIV 1 AND 2 ANTIBODY (QUEST)Arnuqmr4710/26/2011 3:08 PM SUPPLIER QUALITY ENGINEERING MANAGER Counseling on sexually transmitted disease- had affair from Last 3 Months or Most Recently Relevant to Health Maintenance Results * Comprehensive metabolic panel (BMP + Alb, Alk Phos, ALT, AST, Total. Bili, TP) (08/04/2025 12:47 PMCST)ComponentValueRef RangeTest MethodAnalysis Time Performed AtPathologist TfzvnimtcItmcxz948453 - 145 mmol/L110/05/2024 2:45 AM CSTUU LABORATORYPotassium4.13.4 - 5.3 mmol/L110/05/2024 2:45 AM CSTUU LABORATORYCarbon Dioxide (CO2)2722 - 29 mmol/L110/05/2024 2:45 AM CSTUU LABORATORYAnion Xsx834 - 15 mmol/L110/05/2024 2:45 AM CSTUU LABORATORYUrea Kqmkoqeb61.88.0 - 23.0 mg/dL08/05/2025 2:45 AM CSTUU LABORATORYCreatinine0.79 0.51 - 0.95 mg/dL08/05/2025 2:45 AM CSTUU LABORATORYGFR Nhissnab90>60 mL/min/1.01e09308/05/2025 2:45 AM CSTUU LABORATORYComment:eGFR calculated using 2020 CKD-EPI equation.Calcium9.88.8 - 10.4 mg/dL08/05/2025 2:45 AM CSTUU EJVIOTBUWOMmvvrktc62924 - 107 mmol/L110/05/2024 2:45 AM CSTUU LABORATORYGlucose 9070 - 99 mg/dL08/05/2025 2:45 AM CSTUU LABORATORYAlkaline Fndnflljeuk0026 - 150 U/L110/05/2024 2:45 AM CSTUU OOBZTADWOBUJX444 - 45 U/L110/05/2024 2:45 AM CSTUU IITVTCVLUQXOF686 - 50 U/L110/05/2024 2:45 AM CSTUU LABORATORYProtein Total7.46.4 - 8.3 g/dL08/05/2025 2:45 AM CSTUU LABORATORYAlbumin4.43.5 - 5.2 g/dL08/05/2025 2:45 AM CSTUU LABORATORYBilirubin Total0.4<=1.2 mg/dL08/05/2025 2:45 AM CSTUU LABORATORYSpecimen (Source)Anatomical Location / Laterality Collection Method / VolumeCollection TimeReceived TimeBloodBLOOD SPECIMEN / UnknownVenipuncture / Mbgvdvd9308/04/2025 12:47 PM CST08/04/2025 12:47 PM SUPPLIER QUALITY ENGINEERING MANAGER Narrative Authorizing ProviderResult TypeResult StatusJessnishant Khoury MDLAB - BLOOD ORDERABLESFinal ResultPerforming OrganizationAddressCity/State/ZIP CodePhone Number [facility] [address] [facility], [address] [phone] * CBC with platelets (08/04/2025 12:47 PM SUPPLIER QUALITY ENGINEERING MANAGER)ComponentValueRef RangeTest Method Analysis TimePerformed AtPathologist SignatureWBC Count4.974.00 - 11.00 10e3/uL08/04/2025 12:49 PM CSTRV LABORATORYRBC Count4.953.80 - 5.20 10e6/uL 08/04/2025 12:49 PM CSTRV OCAKUFRAVQJsagsapyyq40.111.7 - 15.7 g/dL08/04/2025 12:49 PM CSTRV BHGYEHXGQXYyysegdboy60.235.0 - 47.0 %08/04/2025 12:49 PM CSTRV JKJJDPEQDUAOO17.378.0 - 100.0 fL08/04/2025 12:49 PM CSTRV DTHKVXDTEXKFM22.5 26.5 - 33.0 pg08/04/2025 12:49 PM CSTRV BWQWTDLLEYAOVV24.231.5 - 36.5 g/dL 08/04/2025 12:49 PM CSTRV XZCOPHVJXOGKE82.110.0 - 15.0 %08/04/2025 12:49 PM CSTRV LABORATORYPlatelet [place]244313 - 450 10e3/uL08/04/2025 12:49 PM CSTRV LABORATORYSpecimen (Source)Anatomical Location / LateralityCollection Method / VolumeCollection TimeReceived TimeBloodBLOOD SPECIMEN / UnknownVenipuncture / Nnnmljj3508/04/2025 12:47 PM CST08/04/2025 12:47 PM SUPPLIER QUALITY ENGINEERING MANAGER Narrative Authorizing ProviderResult TypeResult StatusCherelle GANDHI - BLOOD ORDERABLESFinal ResultPerforming OrganizationAddressCity/State/ZIP CodePhone Number [facility] [address] [facility] (no room number, 1st floor of clinic) [place] [address], [facility] * EKG 12-lead complete w/read - Clinics (08/04/2025) Narrative Authorizing ProviderResult TypeResult StatusCherelle DOSHIG ORDERABLESFinal Result * Lipid panel reflex to direct LDL Fasting (04/26/2025 3:29 PM CDT)Component ValueRef RangeTest MethodAnalysis TimePerformed AtPathologist Signature Mckjjmxwqhv601<200 mg/dL04/27/2025 12:45 AM CDTUU QNVJRLWBFQKghhwhsoblxxb25 <150 mg/dL04/27/2025 12:45 AM CDTUU LABORATORYDirect Measure HDL82>=50 mg/dL 04/27/2025 12:45 AM CDTUU LABORATORYLDL Cholesterol Sxzrienrsf05<100 mg/dL 04/27/2025 12:45 AM CDTUU LABORATORYComment:LDL calculated using the Friedewald equation.Non HDL Mfkqclyekez56<130 mg/dL04/27/2025 12:45 AM CDTUU LABORATORYPatient Fasting > 8hrs?Yes04/27/2025 12:45 AM CDTUU LABORATORY Specimen (Source)Anatomical Location / LateralityCollection Method / Volume Collection TimeReceived TimeBloodBLOOD SPECIMEN / UnknownVenipuncture / Lrhwmwp7004/26/2025 3:29 PM CDT04/26/2025 3:29 PM CDT Narrative [facility] - 04/27/2025 12:45 AM CDT Cholesterol Desirable: < 200 mg/dL Borderline High: 200 - 239 mg/dL High: >= 240 mg/dL Triglycerides Normal: < 150 mg/dL Borderline High: 150 - 199 mg/dL High: 200-499 mg/dL Very High: >= 500 mg/dL Direct Measure HDL Female: >= 50 mg/dL Male: >= 40 mg/dL LDL Cholesterol Desirable: < 100 mg/dL Above Desirable: 100 - 129 mg/dL Borderline High: 130 - 159 mg/dL High: ??160 - 189 mg/dL Very High: >= 190 mg/dL Non HDL Cholesterol Desirable: < 130 mg/dL Above Desirable: 130 - 159 mg/dL Borderline High: 160 - 189 mg/dL High: 190 - 219 mg/dL Very High: >= 220 mg/dL Authorizing ProviderResult TypeResult StatusCherelle GANDHI - BLOOD ORDERABLESFinal ResultPerforming OrganizationAddressCity/State/ZIP CodePhone Number [facility] [address] [facility], [address] [phone] * MA Screening Bilateral w/ Jewel (04/24/2024 10:30 AM CDT)Anatomical Region LateralityModalityBreastBilateralMammographySpecimen (Source)Anatomical Location / LateralityCollection Method / VolumeCollection TimeReceived Time Impressions 04/27/2024 7:44 AM CDT IMPRESSION: ACR BI-RADS Category 1: Negative BREAST CANCER SCREENING RECOMMENDATION: Routine yearly mammography beginning at age 40 or as discussed with your provider. The results and recommendations of this examination will be communicated to the patient. Maurisio Betancourt MD Narrative 04/27/2024 7:44 AM CDT BILATERAL FULL FIELD DIGITAL SCREENING MAMMOGRAM WITH TOMOSYNTHESIS Performed on: 04/24/24 Compared to: 03/16/2022 and 07/20/2016 Technique: ??This study was evaluated with the assistance of Computer-Aided Detection. ??Breast Tomosynthesis was used in interpretation. Findings: There are scattered areas of fibroglandular density. ??There is no radiographic evidence of malignancy. Authorizing ProviderResult TypeResult StatusCherelle MOISE MAMMOGRAPHY ORDERABLESFinal Result * Pap Screen with HPV - recommended age 30 - 65 years (04/11/2023 1:40 PM CDT) ComponentValueRef RangeTest MethodAnalysis TimePerformed AtPathologist SignatureInterpretationNegative for Intraepithelial Lesion or Malignancy (NILM)04/19/2023 8:21 AM CDTUM SPECIALTY LABS at 0821 CDTComment Papanicolaou Test Limitations: Cervical cytology is a screening test with limited sensitivity, and regular screening is critical for cancer prevention. Pap tests are primarily effective for the diagnosis/prevention of squamous cell carcinoma, not adenocarcinoma or other cancers. 04/19/2023 8:21 AM CDTUM SPECIALTY LABSSpecimen AdequacySatisfactory for evaluation, endocervical/transformation zone component idjjqxy8204/19/2023 8:21 AM CDTUM SPECIALTY LABSClinical Qqfesqwkzuwraas34/21/2023 8:21 AM CDTUM SPECIALTY LABSReflex TestingYes regardless of dsicni9404/19/2023 8:21 AM CDTUM SPECIALTY LABSPrevious Abnormal?No04/19/2023 8:21 AM CDTUM SPECIALTY LABSPerforming Labs The technical component of this testing was completed at [facility] Xwupqtedym68/21/2023 8:21 AM CDTUM SPECIALTY LABSSpecimen (Source)Anatomical Location / LateralityCollection Method / VolumeCollection TimeReceived TimeBrushingCERVIX UTERI STRUCTURE / UnknownNon- blood Collection / Jqnqxee4304/11/2023 1:40 PM CDT04/11/2023 3:18 PM CDT Narrative Authorizing ProviderResult TypeResult StatusLaura Cassandra LAMAS APFinal ResultPerforming OrganizationAddressCity/State/ZIP CodePhone Number [facility] [address] [facility], Room [address] [place] [address], [facility] [phone] * HPV High Risk Types DNA Cervical (04/11/2023 1:40 PM CDT)ComponentValueRef RangeTest MethodAnalysis TimePerformed AtPathologist SignatureOther HR HPV HjcoxelcBzuszvxt44/25/2023 6:58 AM CDTUM MOLECULAR AFHSFBPNVISMDQ70 DNA AaqqwwmqUzsmgiqe07/25/2023 6:58 AM CDTUM MOLECULAR OPQFZMRWSPUNWT50 DNA BwvjmsdvPskzmpqh23/25/2023 6:58 AM CDTUM MOLECULAR DIAGNOSTICSFINAL DIAGNOSIS This patient's sample is negative for HPV DNA. This test was developed and its performance characteristics determined by the [facility], [facility]. It has not been cleared or approved by the FDA.The laboratory is regulated under CLIA as qualified to perform high-complexity testing. This test is used for clinical purposes. It should not be regarded as investigational or for research. METHODOLOGY: The [employer] Kareen 4800 system uses automated extraction, simultaneous amplification of HPV (L1 region) and beta-globin, followed by real time detection of fluorescent labeled HPV and beta globin using specific oligonucleotide probes. The test specifically identifies types HPV 16 DNA and H PV 18 DNA while concurrently detecting the rest of the high risk types (31, 33, 35, 39, 45, 51, 52,56, 58, 59, 66 or 68). COMMENTS: This test is not intended for use as a screening device for woman under age 30 with normal cervical cytology. Results should be correlated with cytologic and histologic findings. Close clinical followup is recommended. 04/23/2023 6:58 AM CDTUM MOLECULAR DIAGNOSTICSSpecimen (Source)Anatomical Location / LateralityCollection Method / VolumeCollection TimeReceived Time BrushingCERVIX UTERI STRUCTURE / UnknownNon-blood Collection / Umcutim0304/11/2023 1:40 PM CDT04/22/2023 7:36 AM CDT Narrative Authorizing ProviderResult TypeResult StatusLaura Cassandra MAY-CLAB - BLOOD ORDERABLESFinal ResultPerforming OrganizationAddressCity/State/ZIP CodePhone Number [facility]ST[facility] [address] [facility], [address] [address], [facility] [phone] * COLONOSCOPY (04/11/2018 8:16 AM CDT)ComponentValueRef RangeTest MethodAnalysis TimePerformed AtPathologist SignatureCOLONOSCOPYFairWindom Area Hospital Patient Name: Sugar Garcia ? Procedure Date: 04/11/2018 8:16 AM ? Date of : 1960 ?Admit Type: Outpatient Age: 57 ? Gender: Female Attending MD: Geronimo Shepard MD ? Total Sedation Time: _22_ minutes of continuous bedside 1:1 Instrument Name: 134 ? Procedure: ?Colonoscopy Indications: ?Screening for colorectal malignant neoplasm Providers: ?Geronimo Shepard MD (Doctor) Referring MD: ? Cherelle Khoury MD (Referring MD) Medicines: ?Midazolam 4 mg IV, Fentanyl 150 micrograms IV Complications: ?No immediate complications. Procedure: ?Pre-Anesthesia Assessment: ?- Prior to the procedure, a History and Physical ?was performed, and patient medications and ?allergies were reviewed. The patient is competent. ?The risks and benefits of the procedure and the ?sedation options and risks were discussed with the ?patient. All questions were answered and informed ?consent was obtained. Patient identification and ?proposed procedure were verified by the physician ?in the procedure room. Mental Status Examination: ?alert and oriented. Airway Examination: normal ?oropharyngeal airway and neck mobility. Respiratory ?Examination: clear to auscultation. CV Examination: ?regular rate and rhythm. ASA Grade Assessment: II - ?A patient with mild systemic disease. After ?reviewing the risks and benefits, the patient was ?deemed in satisfactory condition to undergo the ?procedure. The anesthesia plan was to use moderate ?sedation / analgesia (conscious sedation). ?Immediately prior to administration of medications, ?the patient was re-assessed for adequacy to receive ?sedatives. The heart rate, respiratory rate, oxygen ?saturations, blood pressure, adequacy of pulmonary ?ventilation, and response to care were monitored ?throughout the procedure. The physical status of ?the patient was re-assessed after the procedure. ?After obtaining informed consent, the colonoscope ?was passed under direct vision. Throughout the ?procedure, the patient's blood pressure, pulse, and ?oxygen saturations were monitored continuously. The ?Olympus Peds Colonoscope Model #PCF-H190L, ?[place]#134, SN#[id number] was introduced through the ?anus and advanced to the terminal ileum. The ?colonoscopy was performed without difficulty. The ?patient tolerated the procedure well. The quality ?of the bowel preparation was good. ? Findings: ? The perianal and digital rectal examinations were normal. ? A few diverticula were found in the descending colon. ? The entire examined colon appeared normal on direct and retroflexion ? views. ? Impression: ? - Diverticulosis in the descending colon. ?- The entire examined colon is normal on direct and ?retroflexion views. ?- No specimens collected. Recommendation: ? - Discharge patient to home. ?- Repeat colonoscopy in 10 years for screening ?purposes. ? Electonically signed by Geronimo Shepard MD Geronimo Shepard MD 04/11/2018 9:07:40 AM I was physically present for the entire viewing portion of the exam. Geronimo Shepard MD Number of Addenda: 0 Note Initiated On: 04/11/2018 8:16 AM MRN: ?[id number] Procedure Date: ? 04/11/2018 8:16:45 AM Scope Withdrawal Time: 0 hours 8 minutes 11 seconds Total Procedure Duration: 0 hours 18 minutes 45 seconds Estimated Blood Loss: ? Scope In: 8:44:26 AM Scope Out: 9:03:11 AMRADIOLOGY RESULTSSpecimen (Source)Anatomical Location / LateralityCollection Method / VolumeCollection TimeReceived Time04/11/2018 8:16 AM CDT Narrative Authorizing ProviderResult TypeResult StatusJessica A Vanderscoff MDPROCEDURES Final ResultPerforming OrganizationAddressCity/State/ZIP CodePhone Number RADIOLOGY RESULTS * Fecal colorectal cancer screen FIT (10/30/2011 9:00 AM SUPPLIER QUALITY ENGINEERING MANAGER)ComponentValueRef RangeTest MethodAnalysis TimePerformed AtPathologist SignatureOccult Blood Scn FITNegativeNEGGRACE MEDICAL CENTERSpecimen (Source) Anatomical Location / LateralityCollection Method / VolumeCollection Time Received TimeStool specimen (specimen)10/30/2011 9:00 AM CST10/30/2011 10:03 AM SUPPLIER QUALITY ENGINEERING MANAGER Narrative Authorizing ProviderResult TypeResult StatusCherelle Khoury MDLAB - STOOLS ORDERABLESFinal ResultPerforming OrganizationAddressCity/State/ZIP CodePhone Number [address] [phone] * Hepatitis C antibody (10/26/2011 3:09 PM SUPPLIER QUALITY ENGINEERING MANAGER)ComponentValueRef RangeTest MethodAnalysis TimePerformed AtPathologist SignatureHepatitis C Antibody NegativeNEGUNMedStar [facility] (Source) Anatomical Location / LateralityCollection Method / VolumeCollection Time Received TimeBlood specimen (specimen)10/26/2011 3:09 PM CST10/26/2011 3:12 PM SUPPLIER QUALITY ENGINEERING MANAGER Narrative Authorizing ProviderResult TypeResult StatusSilviossnishant Khoury MDLAB - BLOOD ORDERABLESFinal ResultPerforming OrganizationAddressCity/State/ZIP CodePhone Number [address] [phone] * HIV 1 and 2 Antibody (10/26/2011 3:08 PM SUPPLIER QUALITY ENGINEERING MANAGER)ComponentValueRef RangeTest MethodAnalysis TimePerformed AtPathologist SignatureHIV 1&2 AntibodyNegative NEGWestern [facility] Hospital Centern (Source)Anatomical Location / LateralityCollection Method / VolumeCollection TimeReceived Time Blood specimen (specimen)10/26/2011 3:08 PM CST10/26/2011 3:11 PM SUPPLIER QUALITY ENGINEERING MANAGER Narrative Authorizing ProviderResult TypeResult StatusJessnishant Khoury MDLAB - BLOOD ORDERABLESFinal ResultPerforming OrganizationAddressCity/State/ZIP CodePhone Number [address] [phone] from Last 3 Months or Most Recently Relevant to Health Maintenance Insurance Care Teams Team MemberRelationshipSpecialtyStart DateEnd Date Cherelle Khoury MD [address] [place] [place] [address] PCP - GeneralFamily Practice10/26/11 Tiffanie De La Paz MD [address] [place] [address] MDDermatology03/13/24 Cherelle Khoury MD [address] [place], [place] [id number] Assigned PCP05/22/24 Tiffanie De La Paz MD [address] [place], [place] [id number] Assigned Dermatology Provider12/20/24 Simran Lam MD [address] [address] PhysicianOB/Gyn05/05/25 Simran Lam MD [address] [address] Assigned OBGYN Provider05/22/25
--- OUTSIDE RECORDS SUMMARY | 2025-09-17 23:15 | XMS_ITS | Encounter Summary ---
Author Organization [facility] Address [address] [place] [address] Care Team Providers Care Recycling Attendant Name Role Phone Cherelle Khoury MD Primary Care Provider Tiffanie De La aPz MD Unavailable [phone] Cherelle Khoury MD Unavailable [phone] Tiffanie De La Paz MD Unavailable [phone] Simran Lam MD Unavailable [phone] Simran Lam MD Unavailable [phone] Encounter Details DateTypeDepartmentCare Team (Latest Contact Info)Gwvuiivpejj27/05/2025Travel Social History Tobacco UseTypesPacks/DayYears UsedDateSmoking Tobacco: JwmznkDoonqgvaps4Fejp: 02/12/1983Passive Smoke Exposure: PastSmokeless Tobacco: Never Comments:smoked for just a c ouple of years Alcohol UseStandard Drinks/WeekCommentsYes0 (1 standard drink = 0.6 oz pure alcohol)OccasionallySocial Connection and Isolation PanelAnswerDate Recorded Frequency of Communication with Friends and FamilyNot on file04/21/2025How often do you get together with friends or relatives?Once a week04/21/2025ttends Episcopalian ServicesNot on file04/21/2025tive Member of Clubs or Organizations Not on file04/21/2025ttends Club or Organization MeetingsNot on file04/21/2025 Marital StatusNot on file04/21/2025PHQ-2AnswerDate RecordedPHQ-2 Score0 04/26/2025[facility] - Occupational Stress QuestionnaireAnswerDate RecordedDo you feel stress - tense, restless, nervous, or anxious, or unable to sleep at night because yourmind is troubled all the time - these days?To some urdcpt0904/21/2025Exercise Vital SignAnswerDate Recorded On average, how many [...] ex-partner?No04/26/2025CommentsNoSex and Gender InformationValueDate RecordedSex Assigned at BruvjNiettf49/16/2020 11:11 AM CDTLegal UgrLncmak55/04/2012 4:18 AM CSTGender SbjuwgdwFvsovz23/16/2020 11:11 AM CDTSexual OrientationNot on fileOccupationIndustryJob Start DateJob End Date stay at home momNot on fileNot on fileNot on filecoderNot on fileNot on fileNot on filedocumented as of this encounter Plan of Treatment DateTypeDepartmentCare Team (Latest Contact Info)Rzkyaxjexjs42/31/2026 8:40 AM CDTOffice Visit [address] [phone] Cherelle Khoury MD [address] [place] [id number] documented as of this encounter Visit Diagnoses Not on filedocumented in this encounter Additional Health Concerns AssessmentNoted TimePHQ-9 Depression Total Score: 1:40 PM CDT documented as of this encounter Care Teams Team MemberRelationshipSpecialtyStart DateEnd Date Cherelle Khoury MD [address] [place] [address] PCP - GeneralFamily Practice10/26/11 Tiffanie De La Paz MD [address] [place] [address] MDDermatology03/13/24 Cherelle Khoury MD [address] [place] [address] Assigned PCP05/22/24 Tiffanie De La Paz MD [address] [place] [address] Assigned Dermatology Provider12/20/24 Simran Lam MD [address] [address] PhysicianOB/Gyn05/05/25 Simran Lam MD [address] [address] Assigned OBGYN Provider05/22/25documented as of this encounter
[2025-09-17 23:20] VITALS: BP 142/88; PULSE 90; RESP 16; TEMP 37.7; O2SAT 97; BMI 21.0
--- NOTE | 2025-09-17 23:27 | CRLHL7_ITS ---
For Patients: As a result of the Century Cures Act, medical imaging exams and procedure reports are released immediately into your electronic medical record. You may view this report before your referring provider. If you have questions, please contact your health care provider. INDICATION: Left lower abdominal pain, fever TECHNIQUE: CT Abdomen and pelvis with i.v. contrast. Coronal and sagittal reformats were obtained. CONTRAST: 64 mL Isovue 370 COMPARISON: None FINDINGS: Lower chest: Unremarkable. Liver: Unremarkable. Spleen: Unremarkable. Pancreas: Unremarkable. Gallbladder: Unremarkable. Kidney: Bilateral renal cysts are present, measuring up to 1 cm. Adrenal: Unremarkable. Bowel: The sigmoid colon is collapsed and difficult to evaluate but there is a short segment of moderate wall thickening with diverticulosis present and mild thickening of the adjacent left peroneal sidewall fascia. The appendix is at the upper limits of normal in size, measuring 8 mm in diameter without wall thickening or surrounding inflammatory changes. Vascular: Unremarkable. Lymph: Unremarkable. Peritoneum: Unremarkable. No pneumoperitoneum is seen. No significant ascites is noted. Pelvis: Evaluation of the pelvic soft tissues, distal ureters and osseous structures are limited by beam hardening artifacts from the right hip prosthesis. Soft tissue: Unremarkable. Bone: Unremarkable for age. IMPRESSIONS: 1. The sigmoid colon is collapsed and difficult to evaluate but there is a short segment of moderate wall thickening with diverticulosis present and mild thickening of the adjacent left peroneal sidewall fascia. These findings are consistent with acute diverticulitis. No adjacent peridiverticular abscess is seen. 2. The appendix is at the upper limits of normal in size, measuring 8 mm in diameter without wall thickening or surrounding inflammatory changes. This is indeterminate by imaging and clinical followup is recommended. Dictated by Jaylen Talbot MD @ 09/18/2025 12:19:06 AM Please note that all CT scans at this facility use dose modulation, iterative reconstruction, and/or weight-based dosing when appropriate to reduce radiation dose to as low as reasonably achievable. Dictated by: Jaylen Talbot MD @ 09/18/2025 00:19:08 (Electronically Signed)
[2025-09-17 23:42] LABS: Lactate Sepsis w/Reflex* 1.1 mmol/L (0.5-1.9)
[2025-09-17 23:43] LABS: Hematocrit* 39.2 % (33.0-51.0); Hemoglobin* 13.0 gm/dL (12.0-16.0); Immature Granulocytes Abs Auto 0.09 K/uL (0.00-0.30); Immature Granulocytes Pct Auto 0.8 %; Lymphocytes Absolute Auto 1.40 K/uL (0.90-2.90); Mean Corpuscular HGB Conc 33 gm/dL (32-36); Mean Corpuscular Hemoglobin 30 pg (26-34); Mean Corpuscular Volume 92 fL (80-100); RDW Coefficient of Variation % 12.8 % (11.5-15.5); Red Blood Count* 4.28 m/uL (4.00-5.20); Slide Review Reflex No; White Blood Count* 10.81 K/uL (4.50-11.00)
[2025-09-17 23:50] LABS: Creatinine, Point-of-Care* 0.9 mg/dl (0.6-1.3)
[2025-09-17 23:59] LABS: Albumin* 4.3 g/dL (3.3-5.0); Chloride* 102 mmol/L (96-114); Potassium* 3.7 mmol/L (3.6-5.1); Sodium* 134 mmol/L (135-149)
[2025-09-18 00:01] LABS: Blood Urea Nitrogen* 17 mg/dL (7-30)
[2025-09-18 00:02] LABS: Alanine Aminotransferase* 15 U/L (4-35); Alkaline Phosphatase* 96 U/L (40-150); Anion Gap 8 mEq/L (7-15); Aspartate Amino Transferase* 24 U/L (12-35); Bilirubin Total* 0.6 mg/dL (0.1-1.5); Calcium* 9.4 mg/dL (8.4-10.6); Carbon Dioxide* 24 mmol/L (20-32); Creatinine* 0.8 mg/dL (0.5-1.5); Est. Creatinine Clearance* 53.60; Estimated Glomerular Filt Rate 83 ml/min; Glucose* 126 mg/dL (60-115); Total Protein* 7.7 g/dL (6.0-8.3)
[2025-09-18] MEDS: 0.9 % SODIUM CHLORIDE 500 ML 500 ML IV (00:08)
--- NOTE | 2025-09-18 00:12 | ED.GENADULT ---
HPI - General Adult General Date Seen: 09/18/25 Chief complaint: Abdominal Pain Stated complaint: Lower abdominal pain Time Seen by Provider: 09/17/25 23:40 History of Present Illness HPI narrative: Patient is a 65-year-old woman here with her for evaluation of left lower quadrant pain which has been going on for a few days now, got much more severe tonight. She describes it as sharp and kind of gas pain like but more severe than anything she has had before. Sometimes radiates across to the suprapubic area and even the right lower quadrant. She has significant pain in her rectal area when she tries to sit. She had a hip replacement a few weeks ago, took oxycodone initially but she says she has not taken any for couple of weeks. She did note constipation when she was on oxycodone but says she has been having good bowel movements since then. Today however, she notes significant pain when she tries to have a bowel movement, and has not been able to produce anything significant. She has not had nausea or vomiting, denies urinary symptoms, fevers at home. Did have a low-grade fever here. She says she has just been exhausted since her surgery in general, but has not noted any more specific symptoms. A colonoscopy in 2017 that was unremarkable aside from diverticulosis, she is due again in 2027. Related Data Home Medications ?Medication ?Instructions ?Recorded ?Confirmed cholecalciferol (vitamin D3) 50 50 mcg PO QDAY 05/12/25 09/08/25 mcg (2,000 unit) capsule estradiol 0.01% (0.1 mg/gram) 1 g vaginal 2XW 05/12/25 09/08/25 vaginal cream multivitamin 1 tab PO QAM 05/12/25 09/08/25 propylene glycol 0.6 % eye drops 1 drp ophthalmic (eye) QDAY PRN 08/10/25 09/08/25 (Systane Balance) sodium chloride 2 % eye drops 1 drp ophthalmic (eye) QDAY 08/10/25 09/08/25 Previous Rx's ?Medication ?Instructions ?Recorded aspirin 81 mg tablet,delayed 81 mg PO BID #50 tabs 08/23/25 release ondansetron 4 mg disintegrating 4 mg PO Q8H PRN nausea and 08/23/25 tablet vomiting #15 tabs oxycodone 5 mg tablet 2.5 - 5 mg (0.5 - 1 x 5 mg) PO 08/23/25 Q4-6H PRN pain #25 tabs sennosides 8.6 mg-docusate sodium 1 tab-cap PO BID PRN constipation 08/23/25 50 mg tablet (Senna-S) #15 tabs ciprofloxacin HCl 500 mg tablet 500 mg PO Q12H #20 tabs 09/18/25 metronidazole 500 mg tablet 500 mg PO TID #30 tabs 09/18/25 Allergies Allergy/AdvReac Type Severity Reaction Status Date / Time amoxicillin Allergy Verified 09/18/25 00:17 Review of Systems Status of ROS: Reports: 10 or more systems reviewed and unremarkable except as noted in History and below [facility] Medical History Liver nodule ?K76.89 - Other specified diseases of liver (ICD-10) Thyroid nodule ?E04.1 - Nontoxic single thyroid nodule (ICD-10) Fatty liver disease, nonalcoholic ?K76.0 - Fatty (change of) liver, not elsewhere classified (ICD-10) Normal vaginal delivery ?O80 - Encounter for full-term uncomplicated delivery (ICD-10) Surgical History History of total right hip replacement (08/23/25) ?Z96.641 - Presence of right artificial hip joint (ICD-10) History of knee surgery ?Z98.890 - Other specified postprocedural states (ICD-10) Family History Mother Stroke Diabetes Other Breast cancer Social History Narrative: , two grown daughters. nonsmoker. social wine. works in [employer] for . gets primary care with [facility]. What is your current living situation?: I presently have a place to live Problems where you live: no known problems Problems where you live details: none In the past 12 months, utilities in danger of being shut off: no In past 12 months, lack of transportation kept you from medical appts, meetings, work, or getting things needed for daily living: no In the past 12 mos, have been you worried that your food would run out before you had money to buy more?: never true In the past 12 mos, the food you bought just didn't last and you didn't have money to buy more?: never true Highest level of school completed/degree received: Associate degree: academic program Smoking Status: Former smoker Do you use any of these nicotine containing products: None Second hand tobacco smoke exposure: No How often do you have a drink containing alcohol: 2-4 times a month How many standard drinks containing alcohol do you have on a typical day: 1 or 2 How often do you have six or more drinks on one occasion: Never AUDIT-C Alcohol total score: 2 Non-prescribed substance use: denies use Caffeine: Yes How often does anyone, including family, friends and others, physically hurt you: never How often does anyone, including family, friends and others, insult or talk down to you: never How often does anyone, including family, friends and others, threaten you with harm: never How often does anyone, including family, friends and others, scream or curse at you: never Gender Identity: female Are you using contraception or practicing any form of control: No service: No Exam Narrative: Exam Narrative: Vital signs reviewed In general, an alert, nontoxic elderly woman. She looks comfortable. Head: Normocephalic, atraumatic. Eyes: Sclera clear. Pupils equal and reactive. ENT: Mucous membranes moist. Neck: Supple without adenopathy. Heart: Regular rate and rhythm without murmur. Lungs: Clear. No increased work of breathing, crackles or wheezes. Abdomen: Soft, nondistended. She has some tenderness in the left lower quadrant and suprapubic areas. Rectal exam deferred. Extremities: Well perfused, pulses intact. No significant edema. Neurologic: Alert, conversant. Speech fluent, face symmetric. Moves all extremities equally. Skin: Warm, dry well perfused. Affect: Normal. Const: Vital Signs, click to edit/add: Vital Signs - 24 hr 09/17/25 23:20 Temperature 100 F H Pulse Rate [Pulse Oximeter] 90 Respiratory Rate 16 Blood Pressure [Ri ght Upper Arm] 142/88 H Pulse Oximetry 97 Oxygen Delivery Me thod Room Air Course Course ED Course: Patient presents several weeks after hip replacement with left lower quadrant pain, diagnostic considerations would include fecal impaction or constipation, colitis, diverticulitis, proctitis, kidney stone, urinary tract infection, pyelonephritis, bowel obstruction, among others. I have ordered labs as well as a CT scan of the abdomen. Thus far, labs are fairly reassuring, white blood cell count is 10.8, lactate is normal at 1.5, metabolic panel is unremarkable, CRP is 1.5. Lipase is 81. I reviewed her CT scan, I did not see significant inflammation but the radiology read notes a small segment of the sigmoid which is collapsed but with the thickened wall consistent with a short segment of diverticulitis. I did do a rectal exam just to ensure that she did not have impacted stools she has a fair amount of stool in the sigmoid colon, but this is negative. Reviewed options with her in terms of antibiotics or no, she would like to do antibiotics are prescribed Flagyl and Cipro as she is allergic to amoxicillin. She has oxycodone she can use at home if needed for pain, give her Toradol here, she declined the morphine as she is worried about constipation. She can use ibuprofen or Tylenol, bland diet, reasons to return reviewed. Primary care follow-up in 1-2 weeks for recheck. Vital Signs Vital signs: Initial Vital Signs Temperature 100 F H 09/17/25 23:20 Temperature Source Temporal Artery Scan 09/17/25 23:20 Pulse Rate 90 09/17/25 23:20 Respiratory Rate 16 09/17/25 23:20 Blood Pressure 142/88 H 09/17/25 23:20 Blood Pressure Mean 106 H 09/17/25 23:20 Blood Pressure Position Sitting 09/17/25 23:20 Pulse Oximetry 97 09/17/25 23:20 Oxygen Delivery Method Room Air 09/17/25 23:20 Vital Signs Temperature 100 F H 09/17/25 23:20 Pulse Rate 90 09/17/25 23:20 Respiratory Rate 16 09/17/25 23:20 Blood Pressure 142/88 H 09/17/25 23:20 Pulse Oximetry 97 09/17/25 23:20 Oxygen Delivery Method Room Air 09/17/25 23:20 Temperature 100 F H 09/17/25 23:20 Pulse Rate 90 09/17/25 23:20 Respiratory Rate 16 09/17/25 23:20 Blood Pressure 142/88 H 09/17/25 23:20 Pulse Oximetry 97 09/17/25 23:20 Oxygen Delivery Method Room Air 09/17/25 23:20 Medications Administered Medications: Discontinued Medications Generic Name Dose Route Start Last Admin Trade Name Unruly PRN Reason Stop Dose Admin Sodium Chloride 500 mls @ 500 mls/hr 09/17/25 23:27 09/18/25 00:08 0.9 % Sodium Chloride 500 Ml IV 09/18/25 00:26 500 mls/hr .Q1H ONE Administration Medical Decision Making Lab Data Lab results reviewed: Yes I reviewed the patient's lab results Labs: Lab Results 09/17/25 09/17/25 09/17/25 Range/Units 00:30 23:27 23:40 WBC 10.81 (4.50-11.00) K/uL RBC 4.28 (4.00-5.20) m/uL Hgb 13.0 (12.0-16.0) gm/dL Hct 39.2 (33.0-51.0) % MCV 92 (80-100) fL MCH 30 (26-34) pg MCHC 33 (32-36) gm/dL RDW Coeff of Betty 12.8 (11.5-15.5) % Plt Count 288 (140-440) K/uL Neut % (Auto) 77.7 H (42.0-72.0) % Lymph % (Auto) 13.2 L (20-44) % Stanley % (Auto) 7.6 (0.0-11.0) % Eos % (Auto) 0.5 (0.0-7.0) % Baso % (Auto) 0.2 (0.0-3.0) % Neut # (Auto) 8.40 H (1.7-7.0) K/uL Lymph # (Auto) 1.40 (0.90-2.90) K/uL Stanley # (Auto) 0.80 (0.00-0.90) K/UL Eos # (Auto) 0.05 (0.00-0.50) K/uL Baso # (Auto) 0.02 (0.00-0.30) K/uL Abs Immat Gran (auto) 0.09 (0.00-0.30) K/uL Imm/Tot Granulo (auto) 0.8 % Sodium 134 L (135-149) mmol/L Potassium 3.7 (3.6-5.1) mmol/L Chloride 102 (96-114) mmol/L Carbon Dioxide 24 (20-32) mmol/L Anion Gap 8 (7-15) mEq/L BUN 17 (7-30) mg/dL Creatinine 0.8 (0.5-1.5) mg/dL Estimated Creat Clear 53.60 Estimated GFR 83 ml/min Glucose 126 H (60-115) mg/dL Lactate 1.1 (0.5-1.9) mmol/L Calcium 9.4 (8.4-10.6) mg/dL Total Bilirubin 0.6 (0.1-1.5) mg/dL AST 24 (12-35) U/L ALT 15 (4-35) U/L Alkaline Phosphatase 96 (40-150) U/L C-Reactive Protein 1.5 H (0.5-1.0) mg/dL Total Protein 7.7 (6.0-8.3) g/dL Albumin 4.3 (3.3-5.0) g/dL Lipase 81 (23-300) U/L Urine Color Yellow (Yellow) Urine Appearance Clear (Clear) Urine pH 6.0 (5.0-8.5) Ur Specific [place] 1.010 (1.000-1.030) Urine Protein Negative (Negative) Urine Glucose (UA) Negative (Negative) Urine Ketones 1+ A (Negative) Urine Blood Negative (Negative) Urine Nitrite Negative (Negative) Urine Bilirubin Negative (Negative) Urine Urobilinogen 0.2 (0.2-1.0) Ur Leukocyte Esterase Negative (Negative) Urine RBC 0-2 (0-2) Urine WBC 0-2 (0-5) Ur Squamous Epith Cells None (None-Few) Urine Bacteria None (None) POC Creatinine (0.6-1.3) mg/dl 09/17/25 Range/Units 23:50 WBC (4.50-11.00) K/uL RBC (4.00-5.20) m/uL Hgb (12.0-16.0) gm/dL Hct (33.0-51.0) % MCV (80-100) fL MCH (26-34) pg MCHC (32-36) gm/dL RDW Coeff of Betty (11.5-15.5) % Plt Count (140-440) K/uL Neut % (Auto) (42.0-72.0) % Lymph % (Auto) (20-44) % Stanley % (Auto) (0.0-11.0) % Eos % (Auto) (0.0-7.0) % Baso % (Auto) (0.0-3.0) % Neut # (Auto) (1.7-7.0) K/uL Lymph # (Auto) (0.90-2.90) K/uL Stanley # (Auto) (0.00-0.90) K/UL Eos # (Auto) (0.00-0.50) K/uL Baso # (Auto) (0.00-0.30) K/uL Abs Immat Gran (auto) (0.00-0.30) K/uL Imm/Tot Granulo (auto) % Sodium (135-149) mmol/L Potassium (3.6-5.1) mmol/L Chloride (96-114) mmol/L Carbon Dioxide (20-32) mmol/L Anion Gap (7-15) mEq/L BUN (7-30) mg/dL Creatinine (0.5-1.5) mg/dL Estimated Creat Clear Estimated GFR ml/min Glucose (60-115) mg/dL Lactate (0.5-1.9) mmol/L Calcium (8.4-10.6) mg/dL Total Bilirubin (0.1-1.5) mg/dL AST (12-35) U/L ALT (4-35) U/L Alkaline Phosphatase (40-150) U/L C-Reactive Protein (0.5-1.0) mg/dL Total Protein (6.0-8.3) g/dL Albumin (3.3-5.0) g/dL Lipase (23-300) U/L Urine Color (Yellow) Urine Appearance (Clear) Urine pH (5.0-8.5) Ur Specific [place] (1.000-1.030) Urine Protein (Negative) Urine Glucose (UA) (Negative) Urine Ketones (Negative) Urine Blood (Negative) Urine Nitrite (Negative) Urine Bilirubin (Negative) Urine Urobilinogen (0.2-1.0) Ur Leukocyte Esterase (Negative) Urine RBC (0-2) Urine WBC (0-5) Ur Squamous Epith Cells (None-Few) Urine Bacteria (None) POC Creatinine 0.9 (0.6-1.3) mg/dl Imaging Data CT scan - abdomen: Attestation: I have reviewed the pertinent imaging results. Radiologist's impression: Patient: FLOWER PRYOR Facility: [facility] Site . Site : [id number] Study: CT-Abdomen/Pelvis 64cc ISOVUE 370-09/18/2025 12:14:29 AM Ordering Physician: Rad Velez Final Report: INDICATION: Left lower abdominal pain, fever TECHNIQUE: CT Abdomen and pelvis with i.v. contrast. Coronal and sagittal reformats were obtained. CONTRAST: 64 mL Isovue 370 COMPARISON: None FINDINGS: Lower chest: Unremarkable. Liver: Unremarkable. Spleen: Unremarkable. Pancreas: Unremarkable. Gallbladder: Unremarkable. Kidney: Bilateral renal cysts are present, measuring up to 1 cm. Adrenal: Unremarkable. Bowel: The sigmoid colon is collapsed and difficult to evaluate but there is a short segment of moderate wall thickening with diverticulosis present and mild thickening of the adjacent left peroneal sidewall fascia. The appendix is at the upper limits of normal in size, measuring 8 mm in diameter without wall thickening or surrounding inflammatory changes. Vascular: Unremarkable. Lymph: Unremarkable. Peritoneum: Unremarkable. No pneumoperitoneum is seen. No significant ascites is noted. Pelvis: Evaluation of the pelvic soft tissues, distal ureters and osseous structures are limited by beam hardening artifacts from the right hip prosthesis. Soft tissue: Unremarkable. Bone: Unremarkable for age. IMPRESSIONS: 1. The sigmoid colon is collapsed and difficult to evaluate but there is a short segment of moderate wall thickening with diverticulosis present and mild thickening of the adjacent left peroneal sidewall fascia. These findings are consistent with acute diverticulitis. No adjacent peridiverticular abscess is seen. 2. The appendix is at the upper limits of normal in size, measuring 8 mm in diameter without wall thickening or surrounding inflammatory changes. This is indeterminate by imaging and clinical followup is recommended. Dictated by Jaylen Talbot MD @ 09/18/2025 12:19:06 AM Please note that all CT scans at this facility use dose modulation, iterative reconstruction, and/or weight-based dosing when appropriate to reduce radiation dose to as low as reasonably achievable. Dictated by: Jaylen Talbot MD @ 09/18/2025 00:19:08 Discharge Plan Discharge Clinical Impression: Diverticulitis Patient Disposition: Home, Self-Care Condition: Stable Instructions: Diverticulitis (DC) Additional Instructions: Take Cipro and Flagyl as prescribed. You can use ibuprofen and/or Tylenol as needed for pain, is also okay to use your oxycodone if you needed although as we discussed this may contribute to constipation. If your pain is worsening, if you have new symptoms such as high fevers, vomiting, bloody stools, return to the emergency department. Otherwise, follow-up with primary care in the next 1-2 weeks for recheck. Prescriptions: New ciprofloxacin HCl 500 mg tablet 500 mg PO Q12H Qty: 20 0RF metronidazole 500 mg tablet 500 mg PO TID Qty: 30 0RF No Action estradiol 0.01 % (0.1 mg/gram) cream 1 g vaginal 2XW cholecalciferol (vitamin D3) 50 mcg (2,000 unit) capsule 50 mcg PO QDAY multivitamin Tablet 1 tab PO QAM sodium chloride 2 % drops 1 drp ophthalmic (eye) QDAY Systane Balance 0.6 % drops 1 drp ophthalmic (eye) QDAY PRN sennosides-docusate sodium [Senna-S] 8.6-50 mg tablet 1 tab-cap PO BID PRN (Reason: constipation) Qty: 15 1RF Rx Instructions: Take while using narcotics. Hold for loose stools. aspirin 81 mg tablet,delayed release (DR/EC) 81 mg PO BID Qty: 50 0RF Rx Instructions: Start this Aspirin AFTER the Xarelto 5 day course has been completed. ondansetron 4 mg tablet,disintegrating 4 mg PO Q8H PRN (Reason: nausea and vomiting) Qty: 15 1RF oxycodone 5 mg tablet 2.5 - 5 mg PO Q4-6H MDD 6 PRN (Reason: pain) Qty: 25 0RF Rx Instructions: Take as needed for postop pain: 2.5mg mild pain, 5mg moderate-severe pain; wean as tolerated. Follow Up/Referrals: Provider,Not a Local [Primary Care Provider, Family Practice] Stand Alone Forms: MyHealth Info Instructions
--- OUTSIDE RECORDS SUMMARY | 2025-09-18 00:32 | XMS_ITS | Encounter Summary ---
Author Organization [place] Address [address] [place] [address] Care Team Providers Care Campus Supervisor Name Role Phone Cherelle Khoury MD Primary Care Provider Tiffanie De La Paz MD Unavailable [phone] Cherelle Khoury MD Unavailable [phone] Tiffanie De La Paz MD Unavailable [phone] Simran Lam MD Unavailable [phone] Simran Lam MD Unavailable [phone] Encounter Details DateTypeDepartmentCare Team (Latest Contact Info)Kmgwisllccx04/05/2025Results Follow-Up [address] [phone] Cherelle Khoury MD [address] [place] [address] Subj: Message about your results Social History Tobacco UseTypesPacks/DayYears UsedDateSmoking Tobacco: WtruvwSkicyhloro4Ohfm: 02/12/1983Passive Smoke Exposure: PastSmokeless Tobacco: Never Comments:smoked for just a c ouple of years Alcohol UseStandard Drinks/WeekCommentsYes0 (1 standard drink = 0.6 oz pure alcohol)OccasionallySocial Connection and Isolation PanelAnswerDate Recorded Frequency of Communication with Friends and FamilyNot on file04/21/2025How often do you get together with friends or relatives?Once a week04/21/2025ttends Bahai ServicesNot on file04/21/2025tive Member of Clubs or Organizations Not on file04/21/2025ttends Club or Organization MeetingsNot on file04/21/2025 Marital StatusNot on file04/21/2025PHQ-2AnswerDate RecordedPHQ-2 Score0 04/26/2025[facility] [place] of Occupational Health - Occupational Stress QuestionnaireAnswerDate RecordedDo you feel stress - tense, restless, nervous, or anxious, or unable to sleep at night because yourmind is troubled all the time - these days?To some haskur2604/21/2025Exercise Vital SignAnswerDate Recorded On average, how many [...] in an abandoned building, in an overnight long term, or couch-surfing.)Yes04/21/2025re you worried about losing your [...] ex-partner?No04/26/2025CommentsNoSex and Gender InformationValueDate RecordedSex Assigned at MwcagMlbzvj03/16/2020 11:11 AM CDTLegal ViwZsfstt48/04/2012 4:18 AM CSTGender GxmzanntAzvpeb79/16/2020 11:11 AM CDTSexual OrientationNot on fileOccupationIndustryJob Start DateJob End Date stay at home momNot on fileNot on fileNot on filecoderNot on fileNot on fileNot on filedocumented as of this encounter Plan of Treatment DateTypeDepartmentCare Team (Latest Contact Info)Tvdkododxek37/31/2026 8:40 AM CDTOffice Visit [address] [phone] Cherelle Khoury MD [address] [place] [phone] documented as of this encounter Visit Diagnoses Not on filedocumented in this encounter Additional Health Concerns AssessmentNoted TimePHQ-9 Depression Total Score: 1:40 PM CDT documented as of this encounter Care Teams Team MemberRelationshipSpecialtyStart DateEnd Date Cherelle Khoury MD [address] [place] [address] PCP - GeneralFamily Practice10/26/11 Tiffanie De La Paz MD [address] [place] [address] MDDermatology03/13/24 [place] [address] [place] [address] Assigned PCP05/22/24 Tiffanie De La Paz MD [address] [place] [address] Assigned Dermatology Provider12/20/24 Simran Lam MD [address] [address] PhysicianOB/Gyn05/05/25 Simran Lam MD [address] [address] Assigned OBGYN Provider05/22/25documented as of this encounter
[2025-09-18 00:33] LABS: Appearance Urine Clear (Clear)
--- OUTSIDE RECORDS SUMMARY | 2025-09-18 00:33 | XMS_ITS | Encounter Summary ---
Author Organization [place] Address [address] [place] [address] Care Team Providers Care Type Proof Reproducer Name Role Phone Cherelle Khoury MD Primary Care Provider Tiffanie De La Paz MD Unavailable [phone] Cherelle Khoury MD Unavailable [phone] Tiffanie De La Paz MD Unavailable [phone] Simran Lam MD Unavailable [phone] Simran Lam MD Unavailable [phone] Encounter Details DateTypeDepartmentCare Team (Latest Contact Info)Escbcacdfvt80/05/2025Travel Social History Tobacco UseTypesPacks/DayYears UsedDateSmoking Tobacco: JpagooRhsrmrfeyg3Prfc: 02/12/1983Passive Smoke Exposure: PastSmokeless Tobacco: Never Comments:smoked for just a c ouple of years Alcohol UseStandard Drinks/WeekCommentsYes0 (1 standard drink = 0.6 oz pure alcohol)OccasionallySocial Connection and Isolation PanelAnswerDate Recorded Frequency of Communication with Friends and FamilyNot on file04/21/2025How often do you get together with friends or relatives?Once a week04/21/2025ttends Orthodoxy ServicesNot on file04/21/2025tive Member of Clubs or Organizations Not on file04/21/2025ttends Club or Organization MeetingsNot on file04/21/2025 Marital StatusNot on file04/21/2025PHQ-2AnswerDate RecordedPHQ-2 Score0 04/26/2025[facility] [place] of Occupational Health - Occupational Stress QuestionnaireAnswerDate RecordedDo you feel stress - tense, restless, nervous, or anxious, or unable to sleep at night because yourmind is troubled all the time - these days?To some kwyegb3904/21/2025Exercise Vital SignAnswerDate Recorded On average, how many [...] ex-partner?No04/26/2025CommentsNoSex and Gender InformationValueDate RecordedSex Assigned at PmexjOcfmof44/16/2020 11:11 AM CDTLegal XidEbjcmk46/04/2012 4:18 AM CSTGender XprfkjusLaosia15/16/2020 11:11 AM CDTSexual OrientationNot on fileOccupationIndustryJob Start DateJob End Date stay at home momNot on fileNot on fileNot on filecoderNot on fileNot on fileNot on filedocumented as of this encounter Plan of Treatment DateTypeDepartmentCare Team (Latest Contact Info)Acrfiojdbad46/31/2026 8:40 AM CDTOffice Visit [address] [phone] Cherelle Khoury MD [address] [place] [address] [phone] documented as of this encounter Visit Diagnoses Not on filedocumented in this encounter Additional Health Concerns AssessmentNoted TimePHQ-9 Depression Total Score: 1:40 PM CDT documented as of this encounter Care Teams Team MemberRelationshipSpecialtyStart DateEnd Date Cherelle Khoury MD [address] [place] [address] PCP - GeneralFamily Practice10/26/11 Tiffanie De La Paz MD [address] [place] [address] MDDermatology03/13/24 Cherelle Khoury MD [address] [place] [address] Assigned PCP05/22/24 Tiffanie De La Paz MD [address] [place] [address] Assigned Dermatology Provider12/20/24 Simran Lam MD [address] [address] PhysicianOB/Gyn05/05/25 Simran Lam MD [address] [address]137 Assigned OBGYN Provider05/22/25documented as of this encounter
--- OUTSIDE RECORDS SUMMARY | 2025-09-18 00:33 | XMS_ITS | Clinical Summary ---
Author Organization [place] Address [address] [place] [address] Care Team Providers Care Bombsight Specialist Name Role Phone Cherelle Khoury MD Primary Care Provider Tiffanie De La Paz MD Unavailable [phone] Cherelle Khoury MD Unavailable [phone] Tiffanie De La Paz MD Unavailable [phone] Simran Lam MD Unavailable [phone] Simran Lam MD Unavailable [phone] Allergies Active AllergyReactionsCriticalityNoted IfbdOxfvllnrEvfyooaxpwcGeehTtv73/25/2003 Medications MedicationSigDispense QuantityRefillsLast FilledStart DateEnd DateStatus estradiol [...] vulvovaginitis --12/2024- recurrent redness and irritated in qupkzhtjyw06/06/2025Fatty liver disease, nonalcoholic 05/05/2025Urethral vnqkaryo88/06/2025Inflammation of vaginal introitus - 1 cm raw, irritated area at the introitus - just right lateral of the urethra, also urethral ndrdainn99/06/2025symptomatic menopausal state05/05/2025Thyroid nodule 05/05/2025Osteoarthritis of right sacroiliac joint04/17/2024Liver nodule- right posterior 7mm- seen incidentally on CT abd/pelvis 12/23/2023, unchanged on Liver MRI Elevated glucose- needs A1c follow up04/17/2024trophic vaginitis- needs refill on vaginal estrogen kbuhgj2704/17/2024Nocturia- gets up 2-3x/night04/17/2024Insomnia secondary to anxiety and yhlfav4404/17/2024 CARDIOVASCULAR SCREENING; LDL GOAL LESS THAN 8644804/17/2024ry eyes- [facility]04/11/2023Secondary oklpcgir04/21/2022Nasal igzorbaxxqqj07/21/2022lavicle enlargement- right vkaigj1403/28/2018Migraine without aura and without status migrainosus, not intractable- no problems puedknvrp09/04/2016Vaginal dryness, drylsekblr49/07/2016Symptomatic menopausal or female climacteric states- postmenopausal since Major depressive disorder, recurrent episode, in full rueahgvrk40/13/2012Family history of macular degeneration- mother 10/26/2011FAMILY HX-BREAST MALIG- jnfbqa1902/12/2005 Resolved Problems ProblemNoted DateDiagnosed DateResolved DateHip pain, [...] Vitamin D deficiency- needs level checked today3Atrophic jxsapkrtl333Postmenopausal sqsxilkv43 CARDIOVASCULAR SCREENING; LDL GOAL LESS THAN 68707 Encounters DateTypeDepartmentCare GwcxJawbsrnclya63/05/2025 11:20 AM CSTOffice Visit [address] [phone] Cherelle Khoury MD Preop general physical exam (Primary Dx); Primary osteoarthritis of right hip; Urethral knydbwpq33/05/2025Results Follow-Up [address] [phone] Cherelle Khoury MD Subj: Message about your emuobyg2908/04/20252240Frajeh16/03/3479Tbtldf35/29/2025 2:20 PM CDTOffice Visit [address] [phone] Cherelle Khoury MD Cat bite of lower leg, right, initial encounter (Primary Dx)07/28/2025Travel 06/23/2025 10:00 AM CDTOffice Visit [facility] [address] [place] [address] Simran Lam MD Urethral caruncle [...] Uncle Social History Tobacco UseTypesPacks/DayYears UsedDateSmoking Tobacco: OlwehpOgqpydtseo0Xrnt: 02/12/1983Passive Smoke Exposure: PastSmokeless Tobacco: Never Tobacco Cessation:Counseling Given: Not Answered Comments:smoked for just a couple of years Alcohol UseStandard Drinks/WeekCommentsYes0 (1 standard drink = 0.6 oz pure alcohol)OccasionallySocial Connection and Isolation PanelAnswerDate Recorded Frequency of Communication with Friends and FamilyNot on file04/21/2025How often do you get together with friends or relatives?Once a week04/21/2025ttends Buddhism ServicesNot on file04/21/2025tive Member of Clubs or Organizations Not on file04/21/2025ttends Club or Organization MeetingsNot on file04/21/2025 Marital StatusNot on 04/21/2025PHQ-2AnswerDate RecordedPHQ-2 Score0 04/26/2025[facility] [place] of Occupational Health - Occupational Stress QuestionnaireAnswerDate RecordedDo you feel stress - tense, restless, nervous, or anxious, or unable to sleep at night because yourmind is troubled all the time - these days?To some qbbdjc3004/21/2025Exercise Vital SignAnswerDate Recorded On average, how many [...] in an abandoned building, in an overnight nursing home, or couch-surfing.)Yes04/21/2025re you worried about losing your [...] ex-partner?No04/26/2025CommentsNoSex and Gender InformationValueDate RecordedSex Assigned at KniofPdmmqb42/16/2020 11:11 AM CDTLegal AmvCehenh04/04/2012 4:18 AM CSTGender QjvpssvaSiclwq21/16/2020 11:11 AM CDTSexual OrientationNot on fileOccupationIndustryJob Start DateJob End Date stay at home momNot on fileNot on fileNot on filecoderNot on fileNot on fileNot on file Last Filed Vital Signs Vital SignReadingTime TakenCommentsBlood Opxfcvnw803/7211 11:18 AM RN LICENSED PRACTICAL Hilqf426008/04/2025 11:18 AM MYLPprqvqlxnml37.6 ??C (97.9 ??F)08/04/2025 11:18 AM CSTRespiratory Rmjc805310/04/2024 11:18 AM CSTOxygen Mbodrajlhm14%08/04/2025 11:18 AM CSTInhaled Oxygen Concentration--Emxmcx39.7 kg (136 lb)08/04/2025 11:18 AM CAYQfpnxh955 cm (5' 5.75)08/04/2025 11:18 AM CSTBody Mass Index22.1211/01/2025 11:18 AM RN LICENSED PRACTICAL Plan of Treatment DateTypeDepartmentCare Team (Latest Contact Info)Xegngqbzcdn23/31/2026 8:40 AM CDTOffice Visit M [address] [phone] [place] [address] [place] [address] [phone] Health MaintenanceDue DateLast DoneCommentsCT PEBSEGILGJCR1962FLEX SIG 1962DNA (Cologuard)1962FITMAMMO SCREENING 5004/24/2024, 03/16/2022, 07/20/2016, Additional history existsPHQ-9 , 04/17/2024, 04/11/2023, Additional history existsHPV TEST , 09/01/2020, 12/17/2018, Additional history existsPAP , 09/01/2020, 12/17/2018, Additional history existsANNUAL REVIEW OF HM PGGHEG58, 04/17/2024, 04/11/2023, Additional history existsYEARLY PREVENTIVE VISIT, 04/11/2023, 10/20/2021, Additional history yirlxxUXYHSKUJRCR75, 04/11/2018 COLORECTAL CANCER CVFFMQYLX27/13/2028DIABETES NNJQTNWDY28, 04/26/2025, 04/26/2025, Additional history ujrxmaCLPFH46, 04/17/2024, 04/11/2023, Additional history existsADVANCE CARE RAUQUIXO65/05/2030 08/04/2025, 04/17/2024, 04/29/2023, Additional history existsDTAP/TDAP/TD VACCINE (3 - Td or Tdap)/, 10/26/2011, 09/15/1998RSV VACCINE (1 - 1-dose 75+ series)2037HEPATITIS C FURMLDCMFDnkpnaumd72/27/2012HIV UPJQMJHDOYgtpqwaht38/27/2012DEPRESSION ACTION SVFSMqbewvmpp12/03/2020 (Not Needed)Overridden with the intention of not completing the topicZOSTER VACCINE Cgtwozxje23/06/2025, 11/06/2024PNEUMOCOCCAL VACCINE 50+ CJECWKbuffqjpw58/28/2025 COVID-19 KACUVVFJvorjtbzp05/31/2025, 07/31/2024, 07/12/2023, Additional history existsINFLUENZA KNZLQMYPwlwryuox45/31/2025, 07/31/2024, 07/12/2023, Additional history existsHPV VACCINE (No Doses Required)CompletedMENINGITIS VACCINEAged Out No longer eligible based on patient's age to complete this topic Procedures Procedure NamePriorityDate/TimeAssociated DiagnosisCommentsCOMPREHENSIVE METABOLIC ZGLMCDayzxax96/05/2025 12:47 PM RN LICENSED PRACTICAL Preop general physical exam CBC WITH EXUNMWYAIHjtqzzn45/05/2025 12:47 PM RN LICENSED PRACTICAL Preop general physical exam EKG 12-LEAD COMPLETE W/READ - GTEBELBXlknkbx88/05/2025 Preop general physical exam LIPID REFLEX TO DIRECT LDL RWKPYXmbxjna51/28/2025 3:29 PM CDT CARDIOVASCULAR SCREENING; LDL GOAL LESS THAN 130 MA SCREENING BILATERAL W/ IKYDErtyodq78/26/2024 10:30 AM CDT Visit for screening mammogram GYNECOLOGIC WPSOFKHIGqoenqc39/13/2023 1:40 PM CDT Cervical cancer screening HPV HIGH RISK TYPES DNA UYEELCAIIjbwhmo34/13/2023 1:40 PM CDT Cervical cancer screening KDMVVVKHCWBEkojjyu99/13/2018 8:16 AM CDT FECAL COLORECTAL CANCER SCREEN NYTZlqprik75/31/2012 9:00 AM RN LICENSED PRACTICAL Special screening for malignant neoplasms, colon HEPATITIS C XDXSIADGNjagskd90/27/2012 3:09 PM RN LICENSED PRACTICAL Counseling on sexually transmitted disease- had affair HIV 1 AND 2 ANTIBODY (QUEST)Zeexzxl2310/26/2011 3:08 PM RN LICENSED PRACTICAL Counseling on sexually transmitted disease- had affair from Last 3 Months or Most Recently Relevant to Health Maintenance Results * Comprehensive metabolic panel (BMP + Alb, Alk Phos, ALT, AST, Total. Bili, TP) (08/04/2025 12:47 PMCST)ComponentValueRef RangeTest MethodAnalysis Time Performed AtPathologist VhumqmprlAxougp768463 - 145 mmol/L110/05/2024 2:45 AM CSTUU LABORATORYPotassium4.13.4 - 5.3 mmol/L110/05/2024 2:45 AM CSTUU LABORATORYCarbon Dioxide (CO2)2722 - 29 mmol/L110/05/2024 2:45 AM CSTUU LABORATORYAnion Cvf232 - 15 mmol/L110/05/2024 2:45 AM CSTUU LABORATORYUrea Yrxogfyb57.88.0 - 23.0 mg/dL08/05/2025 2:45 AM CSTUU LABORATORYCreatinine0.79 0.51 - 0.95 mg/dL08/05/2025 2:45 AM CSTUU LABORATORYGFR Takujulq06>60 mL/min/1.71y04008/05/2025 2:45 AM CSTUU LABORATORYComment:eGFR calculated using 2020 CKD-EPI equation.Calcium9.88.8 - 10.4 mg/dL08/05/2025 2:45 AM CSTUU RUYMHEJZLFDjoeabsb32976 - 107 mmol/L110/05/2024 2:45 AM CSTUU LABORATORYGlucose 9070 - 99 mg/dL08/05/2025 2:45 AM CSTUU LABORATORYAlkaline Rqdjqigqmlj9380 - 150 U/L110/05/2024 2:45 AM CSTUU ZNIYNIEVGLTUF800 - 45 U/L110/05/2024 2:45 AM CSTUU GTMNAVDIAZNQG831 - 50 U/L110/05/2024 2:45 AM CSTUU LABORATORYProtein Total7.46.4 - 8.3 g/dL08/05/2025 2:45 AM CSTUU LABORATORYAlbumin4.43.5 - 5.2 g/dL08/05/2025 2:45 AM CSTUU LABORATORYBilirubin Total0.4<=1.2 mg/dL08/05/2025 2:45 AM CSTUU LABORATORYSpecimen (Source)Anatomical Location / Laterality Collection Method / VolumeCollection TimeReceived TimeBloodBLOOD SPECIMEN / UnknownVenipuncture / Kidcegy4008/04/2025 12:47 PM CST08/04/2025 12:47 PM RN LICENSED PRACTICAL Narrative Authorizing ProviderResult TypeResult StatusJessnishant Khoury MDLAB - BLOOD ORDERABLESFinal ResultPerforming OrganizationAddressCity/State/ZIP CodePhone Number [facility] [address] [facility], [address] [phone] * CBC with platelets (08/04/2025 12:47 PM RN LICENSED PRACTICAL)ComponentValueRef RangeTest Method Analysis TimePerformed AtPathologist SignatureWBC Count4.974.00 - 11.00 10e3/uL08/04/2025 12:49 PM CSTRV LABORATORYRBC Count4.953.80 - 5.20 10e6/uL 08/04/2025 12:49 PM CSTRV KGPVFEFWIFNzbsiqtphx82.111.7 - 15.7 g/dL08/04/2025 12:49 PM CSTRV OCOOMTRGBALrykvaqkeo92.235.0 - 47.0 %08/04/2025 12:49 PM CSTRV WIDUOIUTVBOAY77.378.0 - 100.0 fL08/04/2025 12:49 PM CSTRV RECPOZCODIXUH43.5 26.5 - 33.0 pg08/04/2025 12:49 PM CSTRV WGMQVTMCYKLTXY17.231.5 - 36.5 g/dL 08/04/2025 12:49 PM CSTRV TZOMNHXNAQJDF58.110.0 - 15.0 %08/04/2025 12:49 PM CSTRV LABORATORYPlatelet Bqlyc650862 - 450 10e3/uL08/04/2025 12:49 PM CSTRV LABORATORYSpecimen (Source)Anatomical Location / LateralityCollection Method / VolumeCollection TimeReceived TimeBloodBLOOD SPECIMEN / UnknownVenipuncture / Fdcodor9508/04/2025 12:47 PM CST08/04/2025 12:47 PM RN LICENSED PRACTICAL Narrative Authorizing ProviderResult TypeResult StatusCherelle GANDHI - BLOOD ORDERABLESFinal ResultPerforming OrganizationAddressCity/State/ZIP CodePhone Number [facility] [address] [facility] (no room number, 1st floor of clinic) [place] [address], [facility] * EKG 12-lead complete w/read - Clinics (08/04/2025) Narrative Authorizing ProviderResult TypeResult StatusCherelle DOSHIG ORDERABLESFinal Result * Lipid panel reflex to direct LDL Fasting (04/26/2025 3:29 PM CDT)Component ValueRef RangeTest MethodAnalysis TimePerformed AtPathologist Signature Pnqrhhekxoh125<200 mg/dL04/27/2025 12:45 AM CDTUU EJIVVWXWMPWhbsnyuwacchy51 <150 mg/dL04/27/2025 12:45 AM CDTUU LABORATORYDirect Measure HDL82>=50 mg/dL 04/27/2025 12:45 AM CDTUU LABORATORYLDL Cholesterol Fadjhblbtb61<100 mg/dL 04/27/2025 12:45 AM CDTUU LABORATORYComment:LDL calculated using the Friedewald equation.Non HDL Rjpmieupwiy54<130 mg/dL04/27/2025 12:45 AM CDTUU LABORATORYPatient Fasting > 8hrs?Yes04/27/2025 12:45 AM CDTUU LABORATORY Specimen (Source)Anatomical Location / LateralityCollection Method / Volume Collection TimeReceived TimeBloodBLOOD SPECIMEN / UnknownVenipuncture / Xoicicl7104/26/2025 3:29 PM CDT04/26/2025 3:29 PM CDT Narrative [...] ORDERABLESFinal ResultPerforming OrganizationAddressCity/State/ZIP CodePhone Number [facility] [address] [facility], [address] [phone] * MA Screening Bilateral w/ Jewel (04/24/2024 [...] LABSSpecimen AdequacySatisfactory for evaluation, endocervical/transformation zone component iabjsik6804/19/2023 8:21 AM CDTUM SPECIALTY LABSClinical Woawjumqukpkssp61/21/2023 8:21 AM CDTUM SPECIALTY LABSReflex TestingYes regardless of utdgqf2204/19/2023 8:21 AM CDTUM SPECIALTY LABSPrevious Abnormal?No04/19/2023 8:21 AM CDTUM SPECIALTY LABSPerforming Labs The technical component of this testing was completed at [facility] Cgscccnbnj83/21/2023 8:21 AM CDTUM SPECIALTY LABSSpecimen (Source)Anatomical Location / LateralityCollection Method / VolumeCollection TimeReceived TimeBrushingCERVIX UTERI STRUCTURE / UnknownNon- blood Collection / Fhtquwv3304/11/2023 1:40 PM CDT04/11/2023 3:18 PM CDT Narrative Authorizing ProviderResult TypeResult StatusLaura Cassandra LAMAS APFinal ResultPerforming OrganizationAddressCity/State/ZIP CodePhone Number [facility] [address] [facility], Room [address] [place] [phone], [facility] [phone] * HPV High Risk Types DNA Cervical (04/11/2023 1:40 PM CDT)ComponentValueRef RangeTest MethodAnalysis TimePerformed AtPathologist SignatureOther HR HPV QsygljpnHpcmlqnn62/25/2023 6:58 AM CDTUM MOLECULAR LVIZIECARQDJSF09 DNA DmddtfmjSrvnxlgx13/25/2023 6:58 AM CDTUM MOLECULAR MPNXSWAXLBDUJB02 DNA UjmmypeiQzqdzvoy93/25/2023 6:58 AM CDTUM MOLECULAR DIAGNOSTICSFINAL DIAGNOSIS This patient's sample is negative for HPV DNA. This test was developed and its performance characteristics determined by the [facility], Molecular Diagnostics Laboratory. It has not been [...] BrushingCERVIX UTERI STRUCTURE / UnknownNon-blood Collection / Eqdrdma1104/11/2023 1:40 PM CDT04/22/2023 7:36 AM CDT Narrative Authorizing ProviderResult TypeResult StatusLaura Cassandra MAY-CLAB - BLOOD ORDERABLESFinal ResultPerforming OrganizationAddressCity/State/ZIP CodePhone Number MOLECULAR DIAGNOSTICS Molecular Diagnostics [address] [facility], Room [address] [address], [facility] [phone] * COLONOSCOPY (04/11/2018 8:16 AM CDT)ComponentValueRef RangeTest MethodAnalysis TimePerformed AtPathologist SignatureCOLONOSCOPYFairMille Lacs Health [facility] Patient Name: Sugar Garcia ? Procedure [...] The ?[employer] Peds Colonoscope Model #PCF-H190L, ?[place]#134, SN#[id number] was introduced through the ?anus and advanced [...] Note Initiated On: 04/11/2018 8:16 AM MRN: ?[id number] Procedure Date: ? 04/11/2018 8:16:45 AM Scope [...] colorectal cancer screen FIT (10/30/2011 9:00 AM RN LICENSED PRACTICAL)ComponentValueRef RangeTest MethodAnalysis TimePerformed AtPathologist SignatureOccult Blood Scn FITNegativeNEGUNIVERSITY OF MARYLAND REHABILITATION & ORTHOPAEDIC INSTITUTESpecimen (Source) Anatomical Location / LateralityCollection Method / VolumeCollection Time Received TimeStool specimen (specimen)10/30/2011 9:00 AM CST10/30/2011 10:03 AM RN LICENSED PRACTICAL Narrative Authorizing ProviderResult TypeResult StatusCherelle Khoury MDLAB - STOOLS ORDERABLESFinal ResultPerforming OrganizationAddressCity/State/ZIP CodePhone Number [address] [address] * Hepatitis C antibody (10/26/2011 3:09 PM RN LICENSED PRACTICAL)ComponentValueRef RangeTest MethodAnalysis TimePerformed AtPathologist SignatureHepatitis C Antibody NegativeNEGUNSt. Agnes Hospital (Source) Anatomical Location / LateralityCollection Method / VolumeCollection Time Received TimeBlood specimen (specimen)10/26/2011 3:09 PM CST10/26/2011 3:12 PM RN LICENSED PRACTICAL Narrative Authorizing ProviderResult TypeResult StatusSilviossnishant Khoury MDLAB - BLOOD ORDERABLESFinal ResultPerforming OrganizationAddressCity/State/ZIP CodePhone Number [address] [address] * HIV 1 and 2 Antibody (10/26/2011 3:08 PM RN LICENSED PRACTICAL)ComponentValueRef RangeTest MethodAnalysis TimePerformed AtPathologist SignatureHIV 1&2 AntibodyNegative NEGBrandenburg Centern (Source)Anatomical Location / LateralityCollection Method / VolumeCollection TimeReceived Time Blood specimen (specimen)10/26/2011 3:08 PM CST10/26/2011 3:11 PM RN LICENSED PRACTICAL Narrative Authorizing ProviderResult TypeResult StatusJessnishant Khoury MDLAB - BLOOD ORDERABLESFinal ResultPerforming OrganizationAddressCity/State/ZIP CodePhone Number [address] [phone] from Last 3 Months or Most Recently Relevant to Health Maintenance Insurance Care Teams Team MemberRelationshipSpecialtyStart DateEnd Date Cherelle Khoury MD [address] [place] [address] PCP - GeneralFamily Practice10/26/11 Tiffanie De La Paz MD [address] [place] [address] MDDermatology03/13/24 Cherelle Khoury MD [address] [place], [place] [address] Assigned PCP05/22/24 Tiffanie De La Paz MD [address] [place], [place] [address] Assigned Dermatology Provider12/20/24 Simran Lam MD [address] [address] PhysicianOB/Gyn05/05/25 Simran Lam MD [address] [address] Assigned OBGYN Provider05/22/25
== END 2025-09-18 01:01 | disposition home or self-care (01) ==
PROVIDERS: Emergency Provider Emergency Medicine
DX: K57.92 Diverticulitis of intestine, part unspecified, without perforation or abscess without bleeding (principal); Z96.642 Presence of left artificial hip joint
CPT/HCPCS: 36415; 74177; 80053; 81001; 82565; 83605; 83690; 85025; 86140; 96361; 96374; 96375; 99284; 99285; J1885; J7030; Q9967